=== PATIENT | male | born 1950 | race Caucasian/White ===

== ENCOUNTER 2023-06-11 10:28 | Inpatient (IN) | payer MEDICARE, MEDICAID, SELFPAY ==
[2023-06-11] VITALS (90 sets, daily range): BP systolic 89–143; BP diastolic 53–99; PULSE 81–156; RESP 13–39; TEMP 37–38.8; O2SAT 78–100
--- NOTE | 2023-06-11 11:47 | XRR_ITS ---
PROCEDURE INFORMATION: Exam: XR Chest Exam date and time: 06/11/2023 11:51 AM Age: 72 years old Clinical indication: Fever; Additional info: AMS, fever TECHNIQUE: Imaging protocol: Radiologic exam of the chest. Views: 1 view. COMPARISON: No relevant prior studies available. FINDINGS: Lungs: There is consolidation in the right upper lobe. There is subtle ill-defined opacity in the lateral left mid lung and lateral right lung base. Pleural spaces: There is no pleural effusion or pneumothorax. Heart/Mediastinum: There is mild enlargement of the cardiac silhouette. Bones/joints: Bones are unremarkable. XR/XR chest 1V portable [id number] IMPRESSION: 1. Right upper lobe consolidation consistent with pneumonia. 2. Subtle opacities in the lateral left mid lung and right lung base are nonspecific. These may represent additional sites of consolidation, atelectasis or artifact related overlying soft tissue.
--- NOTE | 2023-06-11 11:48 | ECG_ITS ---
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 Measurements Intervals [place] Rate: 149 P: 0 DE: 0 QRS: -66 QRSD: 94 T: 6 QT: 268 QTc: 423 Interpretive Statements ATRIAL FIBRILLATION WITH RAPID VENTRICULAR RESPONSE PATTERN CONSISTENT WITH PULMONARY DISEASE INCOMPLETE RIGHT BUNDLE BRANCH BLOCK [90+ ms QRS DURATION, TERMINAL R IN V1/V2, 40+ ms S IN I/aVL/V4/V5/V6] LEFT ANTERIOR FASCICULAR BLOCK [QRS AXIS <= -45, QR IN I, RS IN II] NONSPECIFIC ST & T-WAVE ABNORMALITY INTERPRETATION BASED ON A DEFAULT AGE OF 40 YEARS Compared to ECG 10/10/2017 11:43:09 T-wave abnormality now present Sinus tachycardia no longer present ST (T wave) deviation no longer present Electronically Signed On 06-11-2023 21:01:31 CDT by Hector Guillaume M.D. [email or web address] [facility] Technologiesmer[email or web address]isonWhite [facility].[employer]/store/[id number]
[2023-06-11] MEDS: dilTIAZem 5 mg/mL SDV 5 mL 10 MG IVP (12:04)
[2023-06-11 12:35] LABS: Basophils # 0.1 10^3/uL (0.0-0.1); Basophils % 0.4 %; Hematocrit 47.3 % (42.0-52.0); Hemoglobin 15.5 g/dL (11.7-16.6); Lymphocytes # 0.6 10^3/uL (0.8-4.8); Lymphocytes % 4.6 %; Mean Corpuscular HGB Conc 32.8 g/dL (30.0-36.0); Mean Corpuscular Hemoglobin 28.1 pg (28.0-34.0); Mean Corpuscular Volume 85.7 fl (80-94); Mean Platelet Volume 8.6 fL (7.4-10.4); Monocytes # 0.3 10^3/uL (0.2-0.9); Monocytes % 2.5 %; Neutrophils % 91.8 %; Nucleated Red Blood Cells % 0 %; Platelet Count 123 10^3/cmm (130-400); Red Blood Count 5.52 10^6/uL (4.1-5.3); Red Cell Distribution Width 15.2 % (12.1-15.1); White Blood Count 12.2 10^3/uL (4.0-10.0)
[2023-06-11] MEDS: dilTIAZem 100 MG in sodium chloride 0.9% (add-van) 100 ML IV (13:03)
[2023-06-11 13:04] LABS: Lactic Sepsis W/Reflex 3.3 mmol/L (0.5-2.2)
--- NOTE | 2023-06-11 13:07 | ED_ITS ---
HPI - General Adult General: Chief complaint: General Medical Stated complaint: Weakness and running fever Confusion Time Seen by Provider: 06/11/23 11:43 History of Present Illness: Patient presents to the ER with complaints of weakness intermittent fever confusion for the last 3 days. Patient presented to the ER he had a pulse of 142 bpm. Temperature 99.1. Patient does not go to the doctor very often and thinks the last time he was hospitalized was 15 years ago when he had pneumonia. Patient has been taking [id number] Tylenol multiple times a day for fever. Patient also says it hurts in his chest to take big deep breaths. Patient has fallen 3-4 times in the last 3 to 4 days. Patient has weakness and is unable to get up off the floor when he falls. Review of Systems General: Reports: 10 or more systems reviewed and unremarkable except in HPI and below Physical Exam Const: COMMON NORMALS: no acute distress, average body habitus, patient oriented x3, no limitations, healthy appearing, alert and well nourished HENMT: COMMON NORMALS: normocephalic, atraumatic, hearing grossly normal bilaterally, external ears normal, Normal external nose present and moist oral mucous membranes HEAD & SCALP: normocephalic and atraumatic NOSE: Normal external nose present EXTERNAL EAR: Yes external ears normal Eye: COMMON NORMALS: Equal, round and reactive pupils present, EOMs intact bilaterally, conjunctivae normal and no scleral icterus CONJUNCTIVA: Yes conjunctivae normal PUPIL: Yes Equal, round and reactive pupils present Neck/C-Spine: COMMON NORMALS: full ROM, no lymphadenopathy, supple, no meningeal signs, no JVD and Thyroid normal THYROID: Thyroid normal Chest: COMMONS NORMALS: normal inspection of the chest and normal palpation of entire chest wall Resp: COMMON NORMALS: normal respiratory effort, No retractions and No use of accessory muscles OTHER: Rhonchi diffuse worse left upper lobe. Cardio: COMMON NORMALS: no JVD, S1 normal heart sound present and S2 normal heart sound present; negative for regular rate (Tachycardia) and negative for regular rhythm (Irregularly irregular) RATE: abnormal rate (Tachycardia) RHYTHM: abnormal rhythm (Irregularly irregular) HEART SOUNDS: S1 normal heart sound present and S2 normal heart sound present GI: COMMON NORMALS: Normal to inspection, nondistended, normoactive bowel sounds present, Soft to palpation, non-tender, No hepatosplenomegaly present and no masses PALPATION: Yes Soft to palpation and Yes No hepatosplenomegaly present : COMMON NORMALS: Yes no CVA tenderness BLADDER/KIDNEY EXAM: Yes no CVA tenderness Back/Pelvis: COMMON NORMALS: no CVA tenderness Neuro: COMMON NORMALS: patient oriented x3 SENSORIUM/ORIENTATION: Yes alert MENINGEAL SIGNS: Yes no meningeal signs Course Vital Signs: Vital signs: Vital Signs Temperature 102 F H 06/11/23 14:45 Pulse Rate 147 H 06/11/23 14:45 Respiratory Rate 20 H 06/11/23 14:45 Blood Pressure 143/99 06/11/23 14:45 Pulse Oximetry 96 06/11/23 14:45 Oxygen Delivery Me thod Room Air 06/11/23 14:45 MDM - General Adult Medical Decision Making Patient presented to the ER with complaints of worsening shortness of breath heart racing and weakness. Upon arrival patient's heart rate was 142 beats a minute in A-fib with RVR type pattern. Patient was given 10 mg of Cardizem started on a Cardizem drip his heart rate decreased to 121 bpm. Still in A-fib pattern. Chest x-ray showed right upper lobe consolidation consistent with pneumonia. Lab work revealed elevated BUN/creatinine of 29 and 1.9, elevated troponin at 47, elevated procalcitonin 6.45, lactic acid 3.3, white blood cells of 12.2 patient was dosed with 1 g of Rocephin, 2 L of normal saline, Dr. Reina rao was consulted and agreed to inpatient treatment in the ICU. Differential Diagnosis CHF, pneumonia, A-fib with RVR Medical Records I reviewed the patient's medical records. Lab Data I reviewed the patient's lab results. 06/11/23 11:56 06/11/23 11:56 Radiology Impressions Chest X-Ray 06/11/23 11:47 IMPRESSION: 1. Right upper lobe consolidation consistent with pneumonia. 2. Subtle opacities in the lateral left mid lung and right lung base are nonspecific. These may represent additional sites of consolidation, atelectasis or artifact related overlying soft tissue. ADDENDUM: 06/11/23 [id number] THIS REPORT CONTAINS FINDINGS THAT MAY BE CRITICAL TO PATIENT CARE. The findings were verbally communicated via telephone conference with Tayo Verma at 12:52 PM CDT on 06/11/2023. The findings were acknowledged and understood. Laboratory Results WBC 12.2 10^3/uL (4.0-10.0) H 06/11/23 11:56 RBC 5.52 10^6/uL (4.1-5.3) H 06/11/23 11:56 Hgb 15.5 g/dL (11.7-16.6) 06/11/23 11:56 Hct 47.3 % (42.0-52.0) 06/11/23 11:56 MCV 85.7 fl (80-94) 06/11/23 11:56 MCH 28.1 pg (28.0-34.0) 06/11/23 11:56 MCHC 32.8 g/dL (30.0-36.0) 06/11/23 11:56 RDW 15.2 % (12.1-15.1) H 06/11/23 11:56 Plt Count 123 10^3/cmm (130-400) L 06/11/23 11:56 MPV 8.6 fL (7.4-10.4) 06/11/23 11:56 Neut % (Auto) 91.8 % 06/11/23 11:56 Lymph % (Auto) 4.6 % 06/11/23 11:56 [place] % (Auto) 2.5 % 06/11/23 11:56 Eos % (Auto) 0.0 % 06/11/23 11:56 Baso % (Auto) 0.4 % 06/11/23 11:56 Neut # (Auto) 11.20 10^3/uL (1.8-7.7) H 06/11/23 11:56 Lymph # (Auto) 0.6 10^3/uL (0.8-4.8) L 06/11/23 11:56 [place] # (Auto) 0.3 10^3/uL (0.2-0.9) 06/11/23 11:56 Eos # (Auto) 0.0 10^3/uL (0.0-0.8) 06/11/23 11:56 Baso # (Auto) 0.1 10^3/uL (0.0-0.1) 06/11/23 11:56 Nucleated RBC % (auto) 0 % 06/11/23 11:56 Nucleated RBCs # 0.0 /100WBC 06/11/23 11:56 Sodium 130 mmol/L (136-145) L 06/11/23 11:56 Potassium 4.8 mmol/L (3.5-5.1) 06/11/23 11:56 Chloride 92 mmol/L (98-107) L 06/11/23 11:56 Carbon Dioxide 19 mmol/L (22-29) L 06/11/23 11:56 Anion Gap 23.8 (5-19) H 06/11/23 11:56 BUN 29 mg/dL (8-23) H 06/11/23 11:56 Creatinine 1.9 mg/dL (0.7-1.2) H 06/11/23 11:56 GFR Calculation Not Reportable 06/11/23 11:56 Glucose 158 mg/dL (65-115) H 06/11/23 11:56 Calculated Osmolality 279 mOsm/kg (285-295) L 06/11/23 11:56 Lactic Acid 3.3 mmol/L (0.5-2.2) H 06/11/23 11:56 Lactic Acid (Sepsis) 3.8 mmol/L (0.5-2.2) H 06/11/23 14:20 Calcium 9.0 mg/dL (8.5-10.5) 06/11/23 11:56 Magnesium 2.2 mg/dL (1.7-2.3) 06/11/23 11:56 Total Bilirubin 0.7 mg/dL (0.15-1.2) 06/11/23 11:56 AST 36 U/L (0-40) 06/11/23 11:56 ALT 21 U/L (0-41) 06/11/23 11:56 Alkaline Phosphatase 73 U/L (40-130) 06/11/23 11:56 Troponin T Baseline 47 ng/L (0-15) H 06/11/23 11:56 Troponin T 120 Minute 50.08 ng/L (0-15) H 06/11/23 14:07 Delta Troponin T 3.08 ABS# (0-10) 06/11/23 14:07 Total Protein 8.0 g/dL (6.6-8.7) 06/11/23 11:56 Albumin 3.8 g/dL (3.5-5.2) 06/11/23 11:56 Globulin 4.2 g/dL (1.3-4.6) 06/11/23 11:56 Procalcitonin 6.45 ng/mL (0-0.5) H 06/11/23 11:56 Urine Color Yellow (Yellow) 06/11/23 14:17 Urine Appearance Sl hazy (CLEAR) A 06/11/23 14:17 Urine pH 5 (5-7) 06/11/23 14:17 Ur Specific [place] 1.020 (1.005-1.030) 06/11/23 14:17 Urine Protein 2+ (Negative) H 06/11/23 14:17 Urine Glucose (UA) Norm (Normal) 06/11/23 14:17 Urine Ketones 1+ (Negative) H 06/11/23 14:17 Urine Blood 3+ (Negative) H 06/11/23 14:17 Urine Nitrate Negative (Negative) 06/11/23 14:17 Urine Bilirubin Neg (Negative) 06/11/23 14:17 Urine Urobilinogen Norm mg/dL (Negative) 06/11/23 14:17 Ur Leukocyte Esterase Negative (Negative) 06/11/23 14:17 Urine RBC 0-4 /hpf (0-2) H 06/11/23 14:17 Urine WBC 5-10 /hpf (0-5) H 06/11/23 14:17 Ur Squamous Epith Cells None /hpf (0-5) 06/11/23 14:17 Amorphous Sediment 1+ /hpf 06/11/23 14:17 Urine Bacteria 1+ /hpf (NONE) H 06/11/23 14:17 Coarse Granular Casts 15-25 /lpf H 06/11/23 14:17 EKG Data EKG 1: I personally reviewed and interpreted this EKG as follows: EKG interpretation date: 06/11/23 EKG interpretation time: 13:37 Prior EKG tracings: not available for review Interpretation: EKG showed a ventricular rate of 127 bpm, QRS of 87, QTc 02/27/1947, A-fib with RVR, left anterior fascicular block, moderate ST depression Computer generated interpretation: Chest X-Ray 06/11/23 11:47 IMPRESSION: 1. Right upper lobe consolidation consistent with pneumonia. 2. Subtle opacities in the lateral left mid lung and right lung base are nonspecific. These may represent additional sites of consolidation, atelectasis or artifact related overlying soft tissue. ADDENDUM: 06/11/23 4375 THIS REPORT CONTAINS FINDINGS THAT MAY BE CRITICAL TO PATIENT CARE. The findings were verbally communicated via telephone conference with Tayo Verma at 12:52 PM CDT on 06/11/2023. The findings were acknowledged and understood. EKG 2: I personally reviewed and interpreted this EKG as follows: EKG interpretation date: 06/11/23 EKG interpretation time: 14:00 Prior EKG tracings: available for review Interpretation: EKG showed ventricular rate of 123 bpm, QRS 99, QTc 362, A-fib with RVR, incomplete right bundle branch block, left anterior fascicular block, Computer generated interpretation: Chest X-Ray 06/11/23 11:47 IMPRESSION: 1. Right upper lobe consolidation consistent with pneumonia. 2. Subtle opacities in the lateral left mid lung and right lung base are nonspecific. These may represent additional sites of consolidation, atelectasis or artifact related overlying soft tissue. ADDENDUM: 06/11/23 1029 THIS REPORT CONTAINS FINDINGS THAT MAY BE CRITICAL TO PATIENT CARE. The findings were verbally communicated via telephone conference with Tayo Verma at 12:52 PM CDT on 06/11/2023. The findings were acknowledged and understood. Discharge Plan Discharge Patient Disposition: Admitted As Inpatient Clinical Impression: Acute kidney injury, Elevated lactic acid level, Elevated procalcitonin, Atrial fibrillation with rapid ventricular response Right upper lobe pneumonia Qualifiers: Pneumonia type: due to unspecified organism Qualified Code(s): J18.9 - Pneumonia, unspecified organism Condition: Stable Coding Level of Care Code ED Residential Monitor for Marina Roberts
[2023-06-11 13:12] LABS: Alanine Aminotransferase 21 U/L (0-41); Albumin Level 3.8 g/dL (3.5-5.2); Alkaline Phosphatase 73 U/L (40-130); Anion Gap 23.8 (5-19); Aspartate Amino Transferase 36 U/L (0-40); Blood Urea Nitrogen 29 mg/dL (8-23); Carbon Dioxide 19 mmol/L (22-29); Chloride 92 mmol/L (98-107); Globulin 4.2 g/dL (1.3-4.6); Glucose 158 mg/dL (65-115); Magnesium 2.2 mg/dL (1.7-2.3); Osmolality Calculated 279 mOsm/kg (285-295); Potassium 4.8 mmol/L (3.5-5.1); Sodium 130 mmol/L (136-145); Total Bilirubin 0.7 mg/dL (0.15-1.2)
[2023-06-11 13:13] LABS: Troponin(5th) Baseline 47 ng/L (0-15)
[2023-06-11 13:18] LABS: Procalcitonin 6.45 ng/mL (0-0.5)
[2023-06-11] MEDS: cefTRIAXone 1,000 MG in sodium chloride 0.9% (plus) 50 ML 100 MG IV (13:34)
[2023-06-11] MEDS: sodium chloride 0.9% 1,000 ML 999 ML IV (13:35)
--- NOTE | 2023-06-11 13:48 | ECG_ITS ---
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 Measurements Intervals [place] Rate: 123 P: 0 [place]: 0 QRS: -48 QRSD: 99 T: 78 QT: 289 QTc: 414 Interpretive Statements ATRIAL FIBRILLATION WITH RAPID VENTRICULAR RESPONSE INCOMPLETE RIGHT BUNDLE BRANCH BLOCK [90+ ms QRS DURATION, TERMINAL R IN V1/V2, 40+ ms S IN I/aVL/V4/V5/V6] LEFT ANTERIOR FASCICULAR BLOCK [QRS AXIS <= -45, QR IN I, RS IN II] POSSIBLE ANTERIOR MYOCARDIAL INFARCTION , PROBABLY OLD [30 ms Q WAVE IN V3/V4, OR R < 0.2 mV IN V4] Compared to ECG 06/11/2023 11:45:29 Myocardial infarct finding now present T-wave abnormality no longer present Electronically Signed On 06-12-2023 21:41:16 CDT by Hector Guillaume M.D. [id number] perlita
[2023-06-11 13:56] LABS: Reflex Lactate Order REFLEX LACTIC ORDERD
[2023-06-11 14:37] LABS: Protein Urine 2+ (Negative); Urine Appearance SL Hazy (CLEAR); Urine Color Yellow (Yellow); pH Urine 5 (5-7)
[2023-06-11 14:38] LABS: Add Urine Culture? No; Add Urine Microscopic? YES; Amorphous Sediment Urine 1+ /hpf; Bacteria Urine 1+ /hpf; Bilirubin Urine Neg (Negative); Blood Urine 3+ (Negative); Coarse Granular Casts Urine 15-25 /lpf; Glucose Urine UA Norm (Normal); Ketones Urine 1+ (Negative); Leukocyte Esterase Urine Negative (Negative); Nitrate Urine Negative (Negative); RBC Urine 0-4 /hpf (0-2); Urobilinogen Urine Norm (Negative)
[2023-06-11 14:39] LABS: Troponin 5 2HR 50.08 ng/L (0-15)
[2023-06-11 14:45] LABS: Lactic Acid level (Lactate) 3.8 mmol/L (0.5-2.2)
[2023-06-11 14:49] LABS: Troponin 5 2HR Delta 3.08 ABS# (0-10)
[2023-06-11] MEDS: acetaminophen 500 mg Tablet 1000 MG PO (15:00)
--- NOTE | 2023-06-11 15:13 | CTR_ITS ---
PROCEDURE INFORMATION: Exam: CT Head Without Contrast Exam date and time: 06/11/2023 3:33 PM Age: 72 years old Clinical indication: Altered mental status/memory loss; Additional info: AMS TECHNIQUE: Imaging protocol: Computed tomography of the head without contrast. Radiation optimization: All CT scans at this facility use at least one of these dose optimization techniques: automated exposure control; mA and/or kV adjustment per patient size (includes targeted exams where dose is matched to clinical indication); or iterative reconstruction. REPORTING DATA: Count of CT and Cardiac NM exams in prior 12 months: This patient has received 0 known CTs and 0 known cardiac nuclear medicine studies in the 12 months prior to the current study. COMPARISON: No relevant prior studies available. RADIATION DOSE METRICS: Total DLP (mGy-cm): 1159.04 FINDINGS: Brain: No intracranial hemorrhage. No mass effect, edema or midline shift. There are vague areas of decreased attenuation within the periventricular white matter likely secondary to chronic microvascular changes. Mild age related cerebral volume loss resulting in prominence of cortical sulci. Cerebral ventricles: Unremarkable for age and degree of cerebral volume loss. Paranasal sinuses: Mild mucosal thickening left maxillary sinus otherwise visualized sinuses are unremarkable. No fluid levels. Mastoid air cells: Visualized mastoid air cells are well aerated. Bones/joints: Asymmetric widening of the left jugular foramen med appears longstanding and may be vascular nature.. No acute fracture. Soft tissues: Unremarkable. CT/CT head wo con* [id number] IMPRESSION: 1. No acute intracranial abnormality. 2. Asymmetric widening left jugular foramen that appears longstanding and possibly vascular nature. Recommend follow-up nonemergent MRI of the brain with contrast confirmation.
--- NOTE | 2023-06-11 15:13 | CTR_ITS ---
PROCEDURE INFORMATION: Exam: CT Chest Without Contrast; Diagnostic Exam date and time: 06/11/2023 3:36 PM Age: 72 years old Clinical indication: Shortness of breath; Additional info: SOB TECHNIQUE: Imaging protocol: Diagnostic computed tomography of the chest without contrast. Radiation optimization: All CT scans at this facility use at least one of these dose optimization techniques: automated exposure control; mA and/or kV adjustment per patient size (includes targeted exams where dose is matched to clinical indication); or iterative reconstruction. REPORTING DATA: Count of CT and Cardiac NM exams in prior 12 months: This patient has received 0 known CTs and 0 known cardiac nuclear medicine studies in the 12 months prior to the current study. COMPARISON: CR (CHEST, ) 06/11/2023 11:51 AM RADIATION DOSE METRICS: Total DLP (mGy-cm): 494.38 FINDINGS: Lungs: There is an infiltrate present in the posterior right upper lobe. There is also minimal peripheral interstitial opacities in the lungs bilaterally greatest in the bases. Mild paraseptal emphysema. Left lower lobe calcified granuloma. Pleural spaces: Unremarkable. No pneumothorax. No pleural effusion. Heart: Trace pericardial fluid. Coronary arteries: Moderate coronary artery atherosclerosis. Lymph nodes: Enlarged right paratracheal node measuring 2.4 cm short axis may be reactive. There also calcified mediastinal and left hilar nodes consistent with old granulomatous disease. Vasculature: Atherosclerotic changes of the vasculature with incompletely imaged ectasia of the abdominal aorta. Diaphragm: Small-sized hiatal hernia. Bones/joints: T5 and T6 mild superior endplate compression deformity is age indeterminate and may be chronic. Soft tissues: Unremarkable. CT/CT chest [facility] [id number] IMPRESSION: 1. Posterior right upper lobe infiltrates suspicious for pneumonia. There are also subpleural interstitial opacities greatest in the lung bases bilaterally which may be chronic. Correlate with history and pulmonary function testing and recommend follow up after treatment. 2. Mediastinal adenopathy may be reactive in this context. Correlate clinically. COMMENTS: In the absence of a history or active diagnosis of lung cancer, it is recommended that this patient with emphysema be evaluated for enrollment in a low dose CT lung cancer screening program.
[2023-06-11 15:17] LABS: ABG PCO2 23.3 mmHg (35-45); ABG PH Result 7.44 (7.35-7.45); Arterial Blood Gas Hematocrit 43.7 % (42-52); Base Excess ABG -6.2 mmol/L (-2.0-2.0); Blood Gas Allen Test Pos; Blood Gas Operator Identificat MONRO; Blood Gas Sample Site Radial, left; Blood Gas Sample Type Arterial; HCO3 ABG 15.8 mmol/L (22-26); Oxygen Device ROOM AIR; PO2 ABG 69.7 mmHg (80.0-100.0)
--- NOTE | 2023-06-11 15:19 | PM.HP ---
Providers/Chief Complaint Admitting Physician: Willy Loredo MD Chief Complaint: Weakness and running fever Confusion History of Present Illness Alfred Pradhan is a 72 year old male with a past medical history of smoking, no diagnosis of lung disease, no history of CAD no history of strokes, no history of diabetes, no history of kidney disease, no reported significant past medical history, no past surgical history, he tells me for the last 96 hours, he has been sick, fevers, chills, fatigue, malaise, shortness of breath, he does report smoking he smokes about 6 cigarettes a day, does report decreased appetite, does report lightheadedness, does report dizziness, no chest pain, no palpitations does report a productive cough, no hemoptysis, no abdominal pain, no diarrhea, no sick contacts he has not received his COVID vaccinations, he tells me he has not seen a doctor in a long time, he has not ever had a stitch on him, he tells me for the last few days he continues to have fevers, his tells me that several times she has found him on the floor so weak that he cannot get up off the floor, due to weakness and high-grade fevers, denies any neck pain, no neck stiffness, no headache, blurry vision, no paresthesias he lives with his , 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, during my history taking patient would often become confused, would often look to his for answers Review of Systems Const: Reports: fever(s), chills, body aches, change in appetite, change in weight, fatigue, malaise and night sweats Eyes: Denies: change in vision ENMT: Denies: throat pain Card: Reports: palpitations, irregular heart rhythm, lightheadedness, dyspnea on exertion and orthopnea; Denies: chest pain or syncope Resp: Reports: dyspnea and productive cough GI: Denies: abdominal pain, nausea, vomiting, diarrhea, hematochezia or melena : Denies: flank pain, difficulty urinating, dysuria, urinary frequency or urinary urgency Musc: Denies: neck pain or back pain Skin/Breast: Denies: rash or pruritus Neuro: Reports: weakness in extremities, dizziness and confusion; Denies: headache(s), numbness in extremities, sensory changes, Slurred speech present or difficulty communicating thoughts Psych: Denies: anxiety Endo: Denies: polyuria or polydipsia Angelo/Lymph: Reports: enlarged lymph nodes; Denies: easy bruising Medications/Allergies Home Medications Medication Instructions Recorded Confirmed Last Taken Type acetaminophen 650 mg 650 mg PO Q12H PRN pain/fever 06/11/23 06/11/23 06/11/23 08:00 History tablet,extended release (Tylenol Arthritis Pain) Allergies Allergy/AdvReac Type Severity Reaction Status Date / Time No Known Allergies Allergy Verified 06/11/23 11:49 PFSH Acute PFSH: Medical History (Updated 06/11/23 @ 15:44 by Willy Loredo MD) No pertinent past medical history Surgical History (Updated 06/11/23 @ 15:28 by Willy Loredo MD) No pertinent past surgical history Family History (Updated 06/11/23 @ 15:28 by Willy Loredo MD) Mother CAD (coronary artery disease) Father Colon cancer Social History (Updated 06/11/23 @ 15:29 by Willy Loredo MD) Smoking and tobacco status: current every day smoker Alcohol intake: never Substance/Drug Use: never Vitals/I&O/Wt Last Vital Signs Temp 102 F H 06/11/23 14:45 Pulse 147 H 06/11/23 14:45 Resp 20 H 06/11/23 14:45 BP 143/99 06/11/23 14:45 Pulse Ox 96 06/11/23 14:45 O2 Del Method Room Air 06/11/23 14:45 06/11/23 06/11/23 06/11/23 06:59 14:59 22:59 Intake Total 66.167 / 66.167 Balance 66.167 / 66.167 Weight last 48 hrs Weight 80.739 kg Physical Exam Const: COMMON NORMALS: no acute distress GENERAL APPEARANCE: cooperative, well kempt and well developed ORIENTATION/CONSCIOUSNESS: Yes awake, Yes oriented to person, Yes oriented to place and Yes confused; not oriented to time HENMT: COMMON NORMALS: normocephalic, Normal external nose present and oropharynx normal HEAD & SCALP: normocephalic FACE & SINUS: normal facial exam NOSE: Normal external nose present Eye: COMMON NORMALS: Equal, round and reactive pupils present, EOMs intact bilaterally, conjunctivae normal and no scleral icterus CONJUNCTIVA: Yes conjunctivae normal PUPIL: Yes Equal, round and reactive pupils present Neck/C-Spine: COMMON NORMALS: full ROM, no meningeal signs, no JVD, Thyroid normal and No carotid bruits THYROID: Thyroid normal Lymph: LYMPHATIC: no lymphadenopathy noted Chest: COMMONS NORMALS: normal inspection of the chest Resp: COMMON NORMALS: normal respiratory effort, No retractions and No use of accessory muscles AUSCULTATION: crackles and wheezes Cardio: COMMON NORMALS: no JVD, S1 normal heart sound present, S2 normal heart sound present and No murmurs present (Cardio) RATE: tachycardic RHYTHM: abnormal rhythm irregularly irregular HEART SOUNDS: S1 normal heart sound present and S2 normal heart sound present PERIPHERAL PULSES: Peripheral pulses 2+ throughout GI: COMMON NORMALS: Normal to inspection, nondistended, normoactive bowel sounds present, Soft to palpation and non-tender PALPATION: Yes No hepatosplenomegaly present : BLADDER/KIDNEY EXAM: Yes no CVA tenderness Back/Pelvis: COMMON NORMALS: no CVA tenderness Neuro: COMMON NORMALS: patient oriented x3, CN's II-XII intact bilaterally, moves all extremities, no focal motor deficits and no sensory deficits noted MENINGEAL SIGNS: Yes no meningeal signs Psych: COMMON NORMALS: mental status grossly normal, Normal thought process present, cooperative and speech normal APPEARANCE: Yes well kempt SPEECH: Yes normal speech THOUGHT PROCESS: Normal thought process present Skin: COMMON NORMALS: turgor normal and no jaundice GENERAL SKIN EXAM: turgor normal Sepsis: Is patient septic: Yes Focused sepsis exam performed: Yes Focused sepsis exam: - DP PT pulses bilateral lower extremities diminished -Capillary refill greater than 3 seconds -Mottling up to the level of bilateral knees Date exam was performed: 06/11/23 Time exam was performed: 15:33 Data 06/11/23 11:56 06/11/23 11:56 Micro: Microbiology 06/11/23 12:16 Blood Culture - Preliminary Blood SPECIMEN COLLECTED 06/11/23 12:16 Blood Culture - Preliminary Blood SPECIMEN COLLECTED A&P Assessment and plan (1) Sepsis: (2) Right upper lobe pneumonia: Qualifiers: Pneumonia type: due to unspecified organism Qualified Code(s): J18.9 - Pneumonia, unspecified organism (3) Acute kidney injury: (4) Elevated lactic acid level: (5) Atrial fibrillation with rapid ventricular response: (6) Elevated procalcitonin: (7) Hypoxia: (8) Acute encephalopathy: (9) Hyponatremia: (10) Metabolic acidosis: (11) NSTEMI (non-ST elevated myocardial infarction): (12) Goals of care, counseling/discussion: (13) Encounter for smoking cessation counseling: Plan Sepsis secondary to pneumonia -Sepsis criteria met, with febrile state, A-fib, with probable prior history of A-fib, leukocytosis, elevated lactic acid, elevated CRP, elevated creatinine, source of infection right upper lobe pneumonia, encephalopathy Right upper lobe pneumonia -Monitor respiratory status closely -Oxygen therapy -We will order ABG -We will order CT of the chest -Order D-dimer, DIC panel -CRP -Follow blood cultures, sputum cultures, respiratory viral panel -Brought antibiotic coverage, vancomycin, Zosyn -Clear liquid diet, speech therapy eval, aspiration precautions -Does have a history of smoking, no diagnosis of COPD, Decadron Acute encephalopathy -Likely secondary to right upper lobe pneumonia, sepsis -CT of the head A-fib with RVR -Currently on Cardizem drip, will give 5 mg IV push metoprolol his heart rates in the 140s -Corey Vasc score is 1 NSTEMI, likely type II -Likely associate with right upper lobe pneumonia, hypoxia, sepsis -However cannot rule out underlying cardiac etiology -Aspirin, statin -Cardiac echo Acute kidney injury -Likely secondary to sepsis, right upper lobe pneumonia -IV fluids Lactic acidosis, secondary to sepsis as above Metabolic acidosis secondary to sepsis as above Hyponatremia likely sec to dehydration, sepsis, monitor Goals of care discussion patient is a full code Protonix for GI prophylaxis Smoking cessation counseling Attestations Medical Necessity Statement*: Patient requires hospitalization, inpatient, greater than 2 midnights, for sepsis, right upper lobe pneumonia, hypoxia, A-fib with RVR, MARILYN, NSTEMI, acute encephalopathy, metabolic acidosis Coding Level of Care Code Critical Care >/= 30 minutes Critical care time (in minutes): 60 The high probability of a clinically significant, sudden or life threatening deterioration, as referenced in this documentation, required my full and direct attention, intervention and personal management. The critical care time shown is in addition to time spent performing any reported separately billable procedures and includes the following: [x] Data and vital sign review and interpretation [x] Patient assessment, examination and intervention [x] Medication orders and management [x] Patient/Family updates as able [x] Care Coordination and Documentation. Diagnoses Sepsis A41.9 Right upper lobe pneumonia J18.9 Pneumonia type: due to unspecified organism Acute kidney injury N17.9 Elevated lactic acid level R79.89 Atrial fibrillation with rapid ventricular response I48.91 Elevated procalcitonin R79.89 Hypoxia R09.02 Acute encephalopathy G93.40 Hyponatremia E87.1 Metabolic acidosis E87.20 NSTEMI (non-ST elevated myocardial infarction) I21.4 Goals of care, counseling/discussion Z71.89 Encounter for smoking cessation counseling Z71.6
--- NOTE | 2023-06-11 15:53 | USCV_ITS ---
Alfred Pradhan Age: 72 Gender: M : 1950 Exam Date: 06/11/2023 18:39 Ordering Phys: Willy Lroedo MD Technologist: KOFI [place]am [place] [facility] [place]: sob BP: / HR: 89 Rhythm: Sinus Technical Quality: Adequate MEASUREMENTS (Male / Female) Normal Values 2D ECHO LV Diastolic Diameter PLAX 4.3 cm 4.2 - 5.9 / 3.9 - 5.3 cm LV Systolic Diameter PLAX 2.4 cm IVS Diastolic Thickness 0.5 cm 0.6 - 1.0 / 0.6 - 0.9 cm IVS Systolic Thickness 0.9 cm LVPW Diastolic Thickness 0.5 cm 0.6 - 1.0 / 0.6 - 0.9 cm LVPW Systolic Thickness 0.9 cm LVOT Diameter 1.9 cm LV Ejection Fraction 2D Teich 76.6 % LV Ejection Fraction MOD 2C 43.2 % LV Ejection Fraction 2C AL 42.3 % LA Diameter 3.5 cm IVC Diameter 2.3 cm M-MODE Aortic Annulus Diameter 3.2 cm LA Ao Ratio MM 1.3 DOPPLER AV Peak Velocity 161.0 cm/s LVOT Peak Velocity 115.0 cm/s AV Area Cont Eq vti 2.5 cm squared AV Area Cont Eq pk 2.0 cm squared MV Area PHT 4.1 cm squared MV E' Velocity 99.0 cm/s TR Peak Velocity 234.0 cm/s TR Peak Gradient 21.9 mmHg TV Peak E Velocity 88.0 cm/s Right Atrial Pressure 6.0 mmHg Pulmonary Artery Systolic Pressu 27.9 mmHg PV Peak Velocity 105.0 cm/s FINDINGS Left Ventricle Normal left ventricular size and systolic function, EF 55 % (visual). No regional wall motion abnormalities. Right Ventricle The right ventricle is normal in size and function. Right Atrium The right atrium is normal in size. Left Atrium The left atrium is normal in size. Mitral Valve No gross abnormalities noted Aortic Valve Thickened aortic valve. Tricuspid Valve Trace tricuspid valve regurgitation. Estimated pulmonary artery peak systolic pressure 28 mmHg Pulmonic Valve Pulmonic valve not well visualized. Pericardium Normal pericardium without effusion. Aorta Normal ascending aorta dimension. IVC Dilated IVC with normal respiratory variation. CONCLUSIONS Normal left ventricular size and systolic function, EF 55 % (visual). No regional wall motion abnormalities. Thickened aortic valve. Trace tricuspid valve regurgitation. Estimated pulmonary artery peak systolic pressure 28 mmHg. Dilated IVC with normal respiratory variation. There is no pericardial effusion. There are no intracardiac masses. No similar previous studies are available for comparison Dr Hector Guillaume MD [facility] (Electronically Signed) Final Date: 11 June 2023 20:54 S
[2023-06-11] MEDS: ipratropium-albuterol 3 mL Neb INHALATION ×2 (16:08→19:59)
[2023-06-11] MEDS: sodium chloride 0.9% 1,000 ML 50 ML IV (16:18)
[2023-06-11] MEDS: dexamethasone 10 mg/mL INJ 6 MG IVP (16:28)
[2023-06-11] MEDS: pantoprazole 40 mg SDV IVP (16:33)
[2023-06-11] MEDS: aspirin 81 mg EC Tablet PO (16:35)
[2023-06-11] MEDS: enoxaparin 40 mg/0.4 mL Syringe SUBCUT (16:35)
[2023-06-11] MEDS: vancomycin 1,000 MG in sodium chloride 0.9% 250 ML 250 MG IV (16:38)
[2023-06-11 16:42] LABS: INR 1.06 (0.8-1.2); Partial Thromboplastin Time 34.1 SECONDS (23.9-36.7)
[2023-06-11 16:44] LABS: Fibrinogen 681 mg/dL (174-498)
[2023-06-11 16:46] LABS: C Reactive Protein 294.8 mg/L (0.0-4.9); Chol HDL Ratio 4.39 mg/dL (1.0-5.00); Cholesterol 167 mg/dL (0-200); HDL Cholesterol 38 mg/dL (60-100); LDL Cholesterol Calculated 99 mg/dL (50-129); LDL HDL Ratio 2.61 RATIO (0.00-3.22); NT Pro B Type Natriuretic Pept 8094 pg/mL (0-125); Thyroid Stimulating Hormone 1.71 uIU/mL (0.27-4.20); Triglycerides 152 mg/dL (0-150)
[2023-06-11 16:53] LABS: D Dimer 8.29 ug/mIFEU (0-0.59)
[2023-06-11 17:00] LABS: Creatine Phosphokinase 652 U/L (39-308)
[2023-06-11] MEDS: piperacillin-tazobactam 3.375 GM in sodium chloride 0.9% (plus) 50 ML IV (17:48)
--- NOTE | 2023-06-11 17:56 | ECG_ITS ---
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 Measurements Intervals Sutton Rate: 96 P: 0 DE: 0 QRS: -61 QRSD: 96 T: -13 QT: 349 QTc: 442 Interpretive Statements ATRIAL FIBRILLATION PATTERN CONSISTENT WITH PULMONARY DISEASE INCOMPLETE RIGHT BUNDLE BRANCH BLOCK [90+ ms QRS DURATION, TERMINAL R IN V1/V2, 40+ ms S IN I/aVL/V4/V5/V6] LEFT ANTERIOR FASCICULAR BLOCK [QRS AXIS <= -45, QR IN I, RS IN II] Compared to ECG 06/11/2023 14:00:57 Myocardial infarct finding no longer present Electronically Signed On 06-12-2023 21:41:47 CDT by Hector Guillaume M.D. [id number]
[2023-06-11 18:20] LABS: Adenovirus Not Detected (NOT DETECT); Chlamydia Pneumoniae Not Detected (NOT DETECT); Coronavirus 229E,HKU1,NL63,OC4 Not Detected (NOT DETECT); Human Metapneumovirus Not Detected (NOT DETECT); Human Rhinovirus/Enterovirus Not Detected (NOT DETECT); Influenza A Not Detected (NOT DETECT); Influenza A H1 Not Detected (NOT DETECT); Influenza A H1-2009 Not Detected (NOT DETECT); Influenza A H3 Not Detected (NOT DETECT); Influenza B Not Detected (NOT DETECT); Mycoplasma Pneumoniae Not Detected (NOT DETECT); Parainfluenza Virus Type 1 Not Detected (NOT DETECT); Parainfluenza Virus Type 2 Not Detected (NOT DETECT); Parainfluenza Virus Type 3 Not Detected (NOT DETECT); Parainfluenza Virus Type 4 Not Detected (NOT DETECT); Respiratory Syncytial Virus A Not Detected (NOT DETECT); Respiratory Syncytial Virus B Not Detected (NOT DETECT); SARS-COV-2 Not Detected (NOT DETECT)
--- NOTE | 2023-06-11 18:22 | USR_ITS ---
PROCEDURE INFORMATION: Exam: US Duplex Lower Extremity Veins, Bilateral Exam date and time: 06/11/2023 7:23 PM Age: 72 years old Clinical indication: Swelling (edema) of limb; Lower extremity, bilateral; Additional info: Dvt TECHNIQUE: Imaging protocol: Real-time duplex ultrasound of the bilateral extremities with 2-D lincoln scale, color Doppler flow and spectral waveform analysis including responses to compression and other maneuvers (when performed) with image documentation. Complete exam focused on the lower extremity veins. COMPARISON: No relevant prior studies available. FINDINGS: Right deep veins: Unremarkable. The common femoral, femoral, proximal profunda femoral and popliteal veins are patent without thrombus. Normal Doppler waveforms. Normal compressibility and/or augmentation response. Right superficial veins: Saphenofemoral junction is patent without thrombus. Left deep veins: Unremarkable. The common femoral, femoral, proximal profunda femoral and popliteal veins are patent without thrombus. Normal Doppler waveforms. Normal compressibility and/or augmentation response. Left superficial veins: Saphenofemoral junction is patent without thrombus. Soft tissues: Unremarkable. US/CV venous duplex [facility] [id number] IMPRESSION: No evidence of deep vein thrombosis.
[2023-06-11 18:33] LABS: Troponin 5 6HR 52.71 ng/L (0-15)
[2023-06-11 18:39] LABS: Troponin 5 6HR Delta 5.71 ng/L (0-12)
--- NOTE | 2023-06-11 19:14 | PC.NURSE ---
Received patient from ER staff at 1610. HR: 143/AFIB. BP: 118/76, RR: 22, SPO2: 96%. Patient is alert and oriented to perosn, place, time, and situation. Has a cardizem drip running at 15.
--- NOTE | 2023-06-11 19:15 | PC.NURSE ---
One time dose of 5mg metoprolol IVP help due to a blood pressure of 89/59 and Heart rate becoming more controlled, 100-[address] dacosta,no new orders received.
--- NOTE | 2023-06-11 19:16 | PC.NURSE ---
SHift summary: uneventful shift. patient was only in ICU for about 2.5 hours before shift change. Near end of shift heart rate was coming down, nurse titrated cardizem down per protocol from 15 to 12.5, and alerted shiftman nurse to decreasing cardizem requirements.
[2023-06-11] MEDS: acetaminophen 325 mg Tablet 650 MG PO (19:48)
[2023-06-11] MEDS: atorvastatin 40 mg Tablet PO (20:18)
[2023-06-11] MEDS: dilTIAZem 100 MG in sodium chloride 0.9% (add-van) 100 ML 12.5 MG IV (20:18)
[2023-06-12] VITALS (118 sets, daily range): BP systolic 87–137; BP diastolic 52–82; PULSE 83–133; RESP 18–51; TEMP 36.8–39.6; O2SAT 81–99
[2023-06-12] MEDS: ALPRAZolam 0.5 mg Tablet PO (00:31)
[2023-06-12] MEDS: piperacillin-tazobactam 3.375 GM in sodium chloride 0.9% (plus) 50 ML IV ×2 (00:31→09:04)
[2023-06-12] MEDS: dilTIAZem 100 MG in sodium chloride 0.9% (add-van) 100 ML 12.5 MG IV ×2 (03:22→11:19)
[2023-06-12 03:45] LABS: Hematocrit 46.1 % (42.0-52.0); Hemoglobin 13.7 g/dL (11.7-16.6); Mean Corpuscular HGB Conc 29.7 g/dL (30.0-36.0); Mean Corpuscular Hemoglobin 27.5 pg (28.0-34.0); Mean Corpuscular Volume 92.6 fl (80-94); Mean Platelet Volume 8.6 fL (7.4-10.4); Platelet Count 105 10^3/cmm (130-400); Red Blood Count 4.98 10^6/uL (4.1-5.3); Red Cell Distribution Width 15.9 % (12.1-15.1); White Blood Count 8.9 10^3/uL (4.0-10.0)
[2023-06-12 04:06] LABS: Alanine Aminotransferase 25 U/L (0-41); Albumin Level 3.1 g/dL (3.5-5.2); Alkaline Phosphatase 54 U/L (40-130); Blood Urea Nitrogen 32 mg/dL (8-23); Calcium 7.9 mg/dL (8.5-10.5); Carbon Dioxide 14 mmol/L (22-29); Chloride 95 mmol/L (98-107); Globulin 3.7 g/dL (1.3-4.6); Glucose 144 mg/dL (65-115); Magnesium 2.2 mg/dL (1.7-2.3); Osmolality Calculated 271 mOsm/kg (285-295); Phosphorus 2.4 mg/dL (2.5-4.5); Sodium 126 mmol/L (136-145); Total Bilirubin 0.6 mg/dL (0.15-1.2); Total Protein 6.8 g/dL (6.6-8.7)
[2023-06-12 04:10] LABS: C Reactive Protein 281.4 mg/L (0.0-4.9)
[2023-06-12 04:11] LABS: Absolute Neutrophil 8.5 10^3/cmm (1.4-6.5); Absolute Segmented Neutrophil 8.2 10/cmm (1.6-7.1); Band Neutrophils Absolute 0.3 10^3/cmm (0.0-1.2); Eosinophils 0 %; Lymphocytes 4 %; Lymphocytes Absolute 0.4 10^3/cmm (1.2-3.4); Monocytes Absolute 0.1 10^3/cmm (0.1-0.6); Platelet Estimate Decreased (Normal); Segmented Neutrophils 92 %; Total Cells Counted 100 (0-100)
[2023-06-12 04:13] LABS: Estmated Average Glucose 123; Hemoglobin A1C 5.9 % (4.0-6.0)
[2023-06-12 04:14] LABS: Tear Drop Cells 1+; Toxic Vacuolation 1+
[2023-06-12 04:16] LABS: NT Pro B Type Natriuretic Pept 10487 pg/mL (0-125); Procalcitonin 8.44 ng/mL (0-0.5)
[2023-06-12 04:26] LABS: Anion Gap 21.4 (5-19); Potassium 4.4 mmol/L (3.5-5.1)
[2023-06-12 04:27] LABS: Aspartate Amino Transferase 43 U/L (0-40)
[2023-06-12 04:30] LABS: Creatine Phosphokinase 474 U/L (39-308)
[2023-06-12] MEDS: acetaminophen 325 mg Tablet 650 MG PO (04:56)
--- NOTE | 2023-06-12 05:02 | XR_ITS ---
WS: [id number] Exam: XR chest 1V portable [id number] Date/Time of Exam: 06/12/2023 5:22 AM Reason For Exam: worsening dyspnea Comparison 06/11/2023. Increasing consolidating infiltrate in the right upper lobe. Left lung remains clear. Cardiomediastin al silhouette is unremarkable for technique. No pleural effusions. The osseous thorax is intact. Janel toring leads superimpose the chest. XR/XR chest 1V portable [id number] IMPRESSION: 1. Increasing consolidating pneumonia in the right upper lobe. No other signifi cant change.
[2023-06-12] MEDS: FUROsemide 10 mg/mL SDV 2mL 20 MG IVP (05:20)
[2023-06-12] MEDS: ipratropium-albuterol 3 mL Neb INHALATION ×2 (07:46→13:18)
--- NOTE | 2023-06-12 08:19 | US_ITS ---
WS: [id number] Exam: US renal BI* [id number] Date/Time of Exam: 06/12/2023 8:35 AM Reason For Exam: kiel There is cortical scarring of the left kidney. The left kidney measures 10.36 x 5.34 x 5.9 cm. Cortic al thickness of the left kidney is 0.94 cm. The right kidney is unremarkable and measures 11.5 x 5.33 x 5.74 cm. Cortical thickness of the right kidney is 1.55 cm. No solid renal mass or renal obstructi on was demonstrated. Incidentally noted is aneurysmal dilatation of the infrarenal abdominal aorta me asuring almost 6 cm at maximal diameter. The aneurysm is partially obscured by bowel gas. US/US renal BI* [id number] IMPRESSION: 1. Cortical scarring of the left kidney. The right kidney is unremarkable. No r enal mass or obstruction. 2. Incidental finding of the aneurysmal dilatation of the infrarenal abdominal aorta that may measure as much as 6 cm at greatest diameter. The aneurysm is pa rtially obscured by bowel gas. Further workup with CT could be considered for more detailed evaluation. These results were discussed by phone with , the attending physician at approximately 10:10 AM 06/12/2023.
[2023-06-12] MEDS: azithromycin 500 MG in sodium chloride 0.9% 250 ML 250 MG IV (09:02)
[2023-06-12] MEDS: aspirin 81 mg EC Tablet PO (09:04)
--- NOTE | 2023-06-12 10:02 | P.CONIM_ITS ---
Providers/Reason For Consult Consulting Physician/Specialty*: [facility]/Nephrology Reason for Consult*: MARILYN Attending Physician: Willy Loredo MD History of Present Illness History of Present Illness Alfred Pradhan is a 72 year old male With past medical history of hypertension presented to the emergency department complaining of fevers chills fatigue malaise and shortness of breath. Patient also is a smoker. Chest x-ray showed possible pneumonia and lab data significant for low sodium of 146 creatinine 2.2 and has low bicarb of 14 today. Patient reports no prior history of CKD that he is aware of. Currently he is in ICU, unfortunately nasal cannula,. No pressors. Denies any other complaints. Review of Systems Narrative: Other review of systems negative Medications/Allergies Home Medications Medication Instructions Recorded Confirmed Last Taken Type acetaminophen 650 mg 650 mg PO Q12H PRN pain/fever 06/11/23 06/11/23 06/11/23 08:00 History tablet,extended release (Tylenol Arthritis Pain) Allergies Allergy/AdvReac Type Severity Reaction Status Date / Time No Known Allergies Allergy Verified 06/11/23 11:49 Current Medications Generic Name Dose Route Start Last Admin Trade Name Freq PRN Reason Stop Dose Admin Acetaminophen 650 mg 06/11/23 15:13 06/12/23 04:56 Acetaminophen 325 Mg Tablet PO 650 mg Q6H PRN Administration Mild/Mod Pain Or Temp >/= 101 Albuterol/Ipratropium 3 ml 06/11/23 16:00 06/12/23 07:46 Ipratropium-Albuterol 3 Ml Neb INHALATION 3 ml QID.RESPIRATORY DENITA Administration Aspirin 81 mg 06/11/23 15:53 06/12/23 09:04 Aspirin 81 Mg Ec Tablet PO 81 mg DAILY DENITA Administration Atorvastatin Calcium 40 mg 06/11/23 21:00 06/11/23 20:18 Atorvastatin 40 Mg Tablet PO 40 mg BEDTIME DENITA Administration Dexamethasone 6 mg 06/11/23 15:15 06/11/23 16:28 Dexamethasone 10 Mg/Ml Inj IVP 6 mg Q24H DENITA Administration Enoxaparin Sodium 40 mg 06/11/23 15:53 06/11/23 16:35 Enoxaparin 40 Mg/0.4 Ml Syringe SUBCUT 40 mg Q24H DENITA Administration Diltiazem HCl 100 mg/ Sodium 100 mls @ 0 mls/hr 06/11/23 12:30 06/12/23 03:22 Chloride IV 12.5 mg/hr .Q0M DENITA 12.5 mls/hr Administration Protocol Per Protocol Vancomycin HCl 1,000 mg/ 250 mls @ 250 mls/hr 06/11/23 16:00 06/12/23 05:56 Sodium Chloride IV Infused Q24H DENITA Infusion Protocol Piperacillin Sod/Tazobactam 50 mls @ 12.5 mls/hr 06/11/23 17:00 06/12/23 09:04 Sod 3.375 gm/ Sodium Chloride IV 12.5 mls/hr Q8H DENITA Administration Protocol Sodium Chloride 1,000 mls @ 50 mls/hr 06/11/23 15:15 06/12/23 05:56 Sodium Chloride 0.9% IV 0 mls/hr .Q20H DENITA Infusion Azithromycin 500 mg/ Sodium 250 mls @ 250 mls/hr 06/12/23 08:30 06/12/23 09:02 Chloride IV 250 mls/hr Q24H DENITA Administration Protocol Pantoprazole Sodium 40 mg 06/11/23 15:15 06/11/23 16:33 Pantoprazole 40 Mg Sdv IVP 40 mg Q24H DENITA Administration PFSH Acute PFSH: Medical History (Updated 06/11/23 @ 15:44 by Willy Loredo MD) No pertinent past medical history Surgical History (Updated 06/11/23 @ 15:28 by Willy Loredo MD) No pertinent past surgical history Family History (Updated 06/11/23 @ 15:28 by Willy Loredo MD) Mother CAD (coronary artery disease) Father Colon cancer Social History (Updated 06/11/23 @ 15:29 by Willy Loredo MD) Smoking and tobacco status: current every day smoker Alcohol intake: never Substance/Drug Use: never Vitals/I&O/Wt Last Vital Signs Temp 100.0 F H 06/12/23 07:21 Pulse 85 06/12/23 07:51 Resp 18 06/12/23 07:46 BP 114/72 06/12/23 04:30 Pulse Ox 93 06/12/23 07:46 O2 Del Method Nasal Cannula 06/12/23 07:46 O2 Flow Rate 3 06/12/23 07:46 0706/12/23 06/12/23 22:59 06:59 14:59 Intake Total 424 / 423.376 3881.000 / 2520.167 120 / 120 Output Total 250 / 250 600 / 850 Balance 174 / 814.701 7460.000 / 1670.167 120 / 120 Weight last 48 hrs Weight 80.739 kg Physical Exam Narrative: Patient confused, no acute distress HEENT S1-S2 regular rate per report No edema Data 06/12/23 03:00 06/12/23 03:00 Micro: Microbiology 06/11/23 19:10 Bacterial Antigens - Final Urine,Clean Catch 06/11/23 12:16 Blood Culture - Preliminary Blood SPECIMEN COLLECTED 06/11/23 12:16 Blood Culture - Preliminary Blood SPECIMEN COLLECTED A&P Assessment and plan (1) Acute kidney injury: Plan 1. Acute kidney injury: Labs notable, creatinine was 1.9 on presentation worsened to 2.2 currently associated with metabolic acidosis. Continue to monitor. Check renal ultrasound-pending results, check urine electrolytes. Avoid nephrotoxins and IV contrast studies. -No acute indication for dialysis, will repeat labs now 2. Metabolic acidosis: Secondary to lactic acidosis and MARILYN, will switch fluids to bicarbonate drip and also add Bicitra 3. Sepsis secondary to pneumonia: Management per primary team, dose antibiotics to GFR less than 15 4. Acute metabolic encephalopathy 5. A-fib with RVR, on Cardizem drip 6. NSTEMI Patient evaluated using audiovisual cart. Time spent 40 minutes Consult Attestations Medical Necessity Statement: per medicine Coding Level of Care Code Acute Code for [facility] Fwd Diagnoses Acute kidney injury N17.9
--- NOTE | 2023-06-12 10:09 | PC.CHAP ---
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 [] Patient/Family/Request visit [] Outpatient visit [] Follow-up visit [] Physician referral [] Code/Alert [x] Routine visit [] Staff referral [] Actively dying [] Patient sleeping [x] Family support [] [] Out of room [] Palliative care [] [x] Receiving care in room [] Pre-surgical visit [] Trauma [] Long length of stay [] ICU visit [] Other: Relational/Emotional Strength [] Patient feels connected with others/family/visitors/staff [] Distress [] Loneliness/isolation [] Abandonment Spirituality of Patient [] Person of Whit [] Attends Baptism of their Whit [] Believes in Prayer [] Reads Bible or Advent materials [] There are Spiritual issues to be addressed Utility Operator Interventions [x] Prayer [] Active listening [] Non-anxious presence [] Spiritual/emotional support [] Crisis/trauma care [] Spiritual counseling [] Bereavement support [] Provided bereavement packet [] Provided Bible/devotional materials [] Provided toy/stuffed animal, coloring book to patient or family member [] Provided Communion [] Anointing/[place] [] Salvation [x] Completed spiritual assessment [] Other: Impact on Illness or Injury [] Angry [] Fearful [] Anxious [] Often cries [] Exhaustion [] Unable to work [] Unable to attend advent [] Unable to walk/stand [] Unable to read [] Unable to drive [] Unable to eat/drink [] Unable to sleep [] Unable to be with family [] Patient intubated [] Other: Summary Time spent with patient
--- NOTE | 2023-06-12 10:21 | CT_ITS ---
WS: [id number] CT ABDOMEN PELVIS TECHNIQUE: Contrast-enhanced CT of the abdomen and pelvis with coronal and sagittal reformatted image s. CLINICAL INFORMATION: aaa COMPARISON: None. DLP: 1604.[address] scans at [facility] use at least one of these dose optimization techniques: automated e xposure control; mA and/or kV adjustment per patient size (includes targeted exams where dose is matc hed to clinical indication); or iterative reconstruction. FINDINGS: Large lobulated infrarenal abdominal aortic aneurysm as seen on a recent ultrasound. This measures ap proximately 7.2 x 9.2 x 8.8 cm AP by transverse by craniocaudal. Large amount of peripheral mural thr ombus with calcification. Focal outpouching along the anterior lateral aspect of the aneurysm measuri ng 3.9 x 3.1 CM. Approximately 50% narrowing of the upper abdominal aorta due to peripheral mural thrombus. Proximal c ommon iliac arteries are patent. Peripheral mural thrombus LEFT common iliac artery . Celiac and SMA are patent. Mild diffuse fatty infiltration liver. Normal gallbladder. Tiny esophageal hiatal hernia. Interstitial edema in the lung bases. Trace pleural fluid. Fatty atrophy of the pancr eas. Splenic artery calcification. Adrenal glands are normal. Normal renal parenchymal enhancement. A trophic LEFT kidney. No hydronephrosis. Lobato catheter. Mild rectosigmoid constipation. Luminal narrowing involving the proximal sigmoid colon may be due to spasm or stricture. This can be followed up with sigmoidoscopy. No evidence of high-grade obstruction . A few fluid-filled small bowel loops. Slight air-fluid levels in the transverse colon. No free flui d in the abdomen or pelvis. CT/CT abdomen pelvis w con* [id number] IMPRESSION: Some images degraded due to breathing artifact. 1. Lobulated aneurysmal infrarenal abdominal aortic aneurysm measuring 7.2 x 9 .2 x 8.8 cm AP by transverse by craniocaudal with peripheral mural thrombus. No evidence of acute rupture. 2. 50% narrowing of the upper abdominal aorta due to peripheral mural thrombus . 3. Celiac and SMA are patent. 4. Trace bilateral pleural fluid. 5. Smooth luminal narrowing in the proximal sigmoid colon may be due to spasm or stricture. This can be followed up with sigmoidoscopy. 6. No other acute findings. Notified Willy Loredo MD at 06/12/2023 10:55 AM.
[2023-06-12] MEDS: FUROsemide 10 mg/mL SDV 4mL 40 MG IVP (11:19)
[2023-06-12] MEDS: lanolin oint 7 gm 1 APPLIC TOPICAL (11:36)
[2023-06-12 11:51] LABS: Anion Gap 18.8 (5-19); Blood Urea Nitrogen 34 mg/dL (8-23); Calcium 7.2 mg/dL (8.5-10.5); Carbon Dioxide 16 mmol/L (22-29); Chloride 91 mmol/L (98-107); Glucose 155 mg/dL (65-115); Osmolality Calculated 265 mOsm/kg (285-295); Potassium 3.8 mmol/L (3.5-5.1); Sodium 122 mmol/L (136-145)
[2023-06-12] MEDS: iohexol 350 mg/mL 500 mL Btl (per mL) IV (11:59)
[2023-06-12] MEDS: acetaminophen 1,000 MG/100 ML PIGGYBACK 400 MG IV (12:04)
[2023-06-12 12:08] LABS: Erythrocyte Sedimentation Rate 72 mm/hr (0-10)
[2023-06-12] MEDS: sodium chloride 0.9% 1,000 ML 50 ML IV (12:40)
--- NOTE | 2023-06-12 13:25 | PM.PN ---
Subjective Subjective: - Patient was examined multiple times throughout the morning -Overnight she remained febrile -Remains normotensive not on pressors -Remains in A-fib on Cardizem going to 12.5 -On 3 L -Alert, awake, follows commands, but has episodes of encephalopathy -This morning he was examined with at bedside -Discussed his pneumonia, continues to be febrile, so far his blood cultures are negative, his CRP is 281, Pro-Jef is 8, given that he remains febrile, I am going to add on azithromycin, he does have evidence of rhabdomyolysis CPK is 474, I will add on IV fluids, he also has evidence of worsening kidney function, will consult nephrology, -He also has evidence of hyponatremia, serum sodium 126, will continue to monitor, every 4 hours, nephrology consulted potentially hypovolemic hyponatremia, receiving IV fluids -Discussed echocardiogram -He tells me that has been having abdominal pain for the last few months, but now this morning its significantly worsen, he is also having flank pain bilaterally and no lower back pain, feeling nauseous -On examination abdomen is soft, distended, diffusely tender, no guarding, no rebound, no rigidity -He has persistent mottling of bilateral lower extremities up to the level of bilateral knees, no significant mottling of abdomen -DP PT pulses bilateral lower extremities are palpable but diminished, dopplerable, capillary refill greater than 3 seconds, pale hue to bilateral lower extremity -His creatinine is 2.2 this morning lactic acid is 3, spoke to nephrology, consulted for worsening MARILYN -At this point there was concerns for worsening sepsis, however he remains on pressors, renal ultrasound was ordered -I had a call from Dr. Osborn that there was concerns for abdominal aortic aneurysm, -Immediately reexamined patient, continues to complain of abdominal pain, back pain, abdomen is nonpulsatile, he remains hemodynamically stable, remains on Cardizem -Remains febrile -Due to concerns for atypical infection azithromycin was added for antibiotic coverage -Creatinine is 2.2, but answers concerns for abdominal aortic aneurysm impending rupture, dissection, leak, possible mycotic aneurysm, discussed risk and benefits of CT angiogram with contrast with patient and , they voiced understanding, all questions answered, risk of dialysis, risk of renal failure, they voiced understanding of all questions answered, as this is a life-threatening situation I have recommended for a CT angiogram of the abdomen pelvis with contrast to be formed, he agreed to proceed -CT angiogram of the abdomen pelvis revealed a 7 x 8 x 9 cm abdominal aortic aneurysm I reviewed this with radiology, Dr. Barr, no evidence of dissection, or rupture, or leak -However I am still concerned for mycotic aneurysm, and asymptomatic, ESR is 72 -Spoke to Dr. Freed cardiothoracic surgery, given size, and patient's symptomatology, he recommended transfer for emergent vascular surgery evaluation -Spoke to [facility], spoke to vascular surgery, spoke to them about my concerns about asymptomatic abdominal aneurysm, size, his ESR 72 my concern is for impending rupture possible mycotic aneurysm -Spoke to vascular surgery, patient has been accepted at [facility] -I spoke to patient, his , his brother at bedside -Discussed life-threatening nature of these diagnoses, and the urgency for transfer for vascular surgery eval, they are agreeable -I discussed the risks of transfer, morbidity and mortality discussed about transfer, risk of in transfer, him and his voiced understanding, voiced understanding, all questions answered, agreed to proceed - Vitals/I&O/Wt Last Vital Signs Temp 102.7 F H 06/12/23 11:35 Pulse 87 06/12/23 12:10 Resp 25 H 06/12/23 12:10 BP 101/58 06/12/23 12:10 Pulse Ox 92 06/12/23 12:10 O2 Del Method Nasal Cannula 06/12/23 12:05 O2 Flow Rate 2 06/12/23 12:05 06/11/23 06/12/23 06/12/23 22:59 06:59 14:59 Intake Total 424 / 617.110 9667.000 / 2520.167 619.375 / 619.375 Output Total 250 / 250 600 / 850 Balance 174 / 272.069 3183.000 / 1670.167 619.375 / 619.375 Weight last 48 hrs Weight 80.739 kg Physical Exam Const: COMMON NORMALS: no acute distress ORIENTATION/CONSCIOUSNESS: Yes awake, Yes oriented to person, Yes oriented to place and Yes confused; not oriented to time Resp: COMMON NORMALS: normal respiratory effort, No retractions and No use of accessory muscles AUSCULTATION: crackles and wheezes Cardio: COMMON NORMALS: S1 normal heart sound present and S2 normal heart sound present RATE: tachycardic RHYTHM: abnormal rhythm irregularly irregular HEART SOUNDS: S1 normal heart sound present and S2 normal heart sound present GI: OTHER: Abdomen soft, distended, decreased bowel sounds, diffuse tenderness, no guarding, no rebound, no rigidity Neuro: SENSORIUM/ORIENTATION: Yes oriented to person, Yes oriented to place and No oriented to time Sepsis: Is patient septic: Yes Focused sepsis exam performed: Yes Focused sepsis exam: DP PT pulses palpable but diminished, mottling of bilateral extremities at the level of bilateral knees, capillary refill greater than 3 seconds Date exam was performed: 06/12/23 Time exam was performed: 08:00 Data 06/12/23 03:00 06/12/23 10:59 Micro: Microbiology 06/11/23 12:16 Blood Culture - Preliminary Blood NEGATIVE TO DATE 06/11/23 12:16 Blood Culture - Preliminary Blood NEGATIVE TO DATE 06/11/23 19:10 Bacterial Antigens - Final Urine,Clean Catch A&P Assessment and plan (1) Sepsis: (2) Right upper lobe pneumonia: Qualifiers: Pneumonia type: due to unspecified organism Qualified Code(s): J18.9 - Pneumonia, unspecified organism (3) Acute kidney injury: (4) Elevated lactic acid level: (5) Atrial fibrillation with rapid ventricular response: (6) Elevated procalcitonin: (7) Hypoxia: (8) Acute encephalopathy: (9) Hyponatremia: (10) Metabolic acidosis: (11) NSTEMI (non-ST elevated myocardial infarction): (12) Goals of care, counseling/discussion: (13) Encounter for smoking cessation counseling: (14) Abdominal aortic aneurysm (AAA) greater than 5.5 cm in diameter in male: (15) Rhabdomyolysis: (16) Acute respiratory failure with hypoxia: Plan Symptomatic abdominal aortic aneurysm 1.? Lobulated aneurysmal infrarenal abdominal aortic aneurysm measuring 7.2 x 9.2 x 8.8 cm AP by transverse by craniocaudal with peripheral mural thrombus. No evidence of acute rupture. 2.? 50% narrowing of the upper abdominal aorta due to peripheral mural thrombus. -Mottling up to the level of bilateral knees, DP PT is diminished bilaterally, abdomen diffusely tender, has complaints of back pain, and flank pain bilaterally -Concerns for impending rupture -ESR is 72, also concern for mycotic aneurysm, as he remains febrile -He is on antibiotic therapy -We will be transferred to [facility] for urgent vascular surgery consultation and evaluation Hyponatremia -Likely hypovolemic hyponatremia -Nephrology consulted -On IV fluids -Serum sodiums every 4 hours -Neurochecks, aspiration precautions Sepsis secondary to pneumonia -Sepsis criteria met, with febrile state, A-fib, with probable prior history of A-fib, leukocytosis, elevated lactic acid, elevated CRP, elevated creatinine, source of infection right upper lobe pneumonia, encephalopathy Right upper lobe pneumonia CT of the chest posterior right upper lobe infiltrates suspicious for pneumonia. There are also subpleural interstitial opacities greatest in the lung bases bilaterally which may be chronic. Correlate with history and pulmonary function testing and recommend follow up after treatment. 2. ? Mediastinal adenopathy may be reactive in this context. Correlate clinically. -Monitor respiratory status closely -Oxygen therapy -Follow CRP, Pro-Jef -Follow blood cultures, sputum cultures, respiratory viral panel negative -Brought antibiotic coverage, vancomycin, Zosyn -Clear liquid diet, speech therapy eval, aspiration precautions -Does have a history of smoking, no diagnosis of COPD, Decadron Acute encephalopathy -Likely secondary to right upper lobe pneumonia, sepsis -CT of the head no acute findings A-fib with RVR -Currently on Cardizem drip -Corey Vasc score is 1 NSTEMI, likely type II -Likely associate with right upper lobe pneumonia, hypoxia, sepsis -However cannot rule out underlying cardiac etiology -Aspirin, statin -Cardiac echo Normal left ventricular size and systolic function, EF 55? % ?(visual). No regional wall motion abnormalities. ?Thickened aortic valve. ?Trace tricuspid valve regurgitation.? Estimated pulmonary artery ?peak systolic pressure 28 mmHg. ?Dilated IVC with normal respiratory variation. ?There is no pericardial effusion. ?There are no intracardiac masses. ?No similar previous studies are available for comparison Acute kidney injury -Likely secondary to sepsis, right upper lobe pneumonia -IV fluids Lactic acidosis, secondary to sepsis as above Metabolic acidosis secondary to sepsis as above Rhabdomyolysis, IV fluids Goals of care discussion patient is a full code DVT prophylaxis as is, anticoagulation currently on hold as there is concern for possible surgical intervention, abdominal aortic aneurysm Protonix for GI prophylaxis Smoking cessation counseling Attestations Medical Necessity Statement*: Patient requires hospitalization, abdominal aortic aneurysm, febrile state, pneumonia, NSTEMI, MARILYN, hyponatremia, rhabdomyolysis Critical Care Time: Critical care time spent over 80 minutes Coding Level of Care Code Critical Care >/= 30 minutes Critical care time (in minutes): 80 The high probability of a clinically significant, sudden or life threatening deterioration, as referenced in this documentation, required my full and direct attention, intervention and personal management. The critical care time shown is in addition to time spent performing any reported separately billable procedures and includes the following: [x] Data and vital sign review and interpretation [x] Patient assessment, examination and intervention [x] Medication orders and management [x] Patient/Family updates as able [x] Care Coordination and Documentation. Diagnoses Sepsis A41.9 Right upper lobe pneumonia J18.9 Pneumonia type: due to unspecified organism Acute kidney injury N17.9 Elevated lactic acid level R79.89 Atrial fibrillation with rapid ventricular response I48.91 Elevated procalcitonin R79.89 Hypoxia R09.02 Acute encephalopathy G93.40 Hyponatremia E87.1 Metabolic acidosis E87.20 NSTEMI (non-ST elevated myocardial infarction) I21.4 Goals of care, counseling/discussion Z71.89 Encounter for smoking cessation counseling Z71.6 Abdominal aortic aneurysm (AAA) greater than 5.5 cm in diameter in male I71.40 Rhabdomyolysis M62.82 Acute respiratory failure with hypoxia J96.01
--- NOTE | 2023-06-12 13:36 | PC.NURSE ---
Report called to [facility], surgical ICU,MARIA ESTHER Whittington. Room 44-33 assigned.
--- NOTE | 2023-06-12 14:02 | XR_ITS ---
WS: [id number] Exam: XR chest 1V portable [id number] Date/Time of Exam: 06/12/2023 2:02 PM Reason For Exam: PICC line placement Comparison with the latest exam performed earlier on this same day at 5:34 AM. A right-sided PICC line is been placed and ends in the lower one third of the SVC. The lungs remain f ully expanded. Consolidating infiltrate in the right upper lobe is unchanged. There also may be some infiltrate in the mid and lower left lung. Heart size is within normal limits for technique. Bony str uctures are intact. XR/XR chest 1V portable [id number] IMPRESSION: 1. Right-sided PICC line in satisfactory position. 2. Consolidating pneumonia in the right upper lobe unchanged. There may be new infiltrate in the mid and lower left lung since the prior study. This might als o be secondary to limited inspiration.
--- NOTE | 2023-06-12 14:49 | PM.TDS ---
Transfer Summary Providers Date of Admission: 06/11/23 15:09 Date of Discharge/Transfer: 06/12/23 Attending Provider at Admission: Willy Loredo MD Attending Provider at Transfer: Willy Loredo MD Transfer Plans: Anticipated date of transfer: 06/12/23. Diagnoses at Discharge Discharge Diagnosis (1) Sepsis: Status: Acute (2) Right upper lobe pneumonia: Status: Acute Qualifiers: Pneumonia type: due to unspecified organism Qualified Code(s): J18.9 - Pneumonia, unspecified organism (3) Acute kidney injury: Status: Acute (4) Elevated lactic acid level: Status: Acute (5) Atrial fibrillation with rapid ventricular response: Status: Acute (6) Elevated procalcitonin: Status: Acute (7) Hypoxia: Status: Acute (8) Acute encephalopathy: Status: Acute (9) Hyponatremia: Status: Acute (10) Metabolic acidosis: Status: Acute (11) NSTEMI (non-ST elevated myocardial infarction): Status: Acute (12) Goals of care, counseling/discussion: Status: Acute (13) Encounter for smoking cessation counseling: Status: Acute (14) Abdominal aortic aneurysm (AAA) greater than 5.5 cm in diameter in male: Status: Acute (15) Rhabdomyolysis: Status: Acute (16) Acute respiratory failure with hypoxia: Status: Acute Reason for Visit Reason for Visit Weakness and running fever Confusion Hospital Course Hospital Course Alfred Pradhan is a 72 year old male with a past medical history of smoking, no diagnosis of lung disease, no history of CAD no history of strokes, no history of diabetes, no history of kidney disease, no reported significant past medical history, no past surgical history, he tells me for the last 96 hours, he has been sick, fevers, chills, fatigue, malaise, shortness of breath, he does report smoking he smokes about 6 cigarettes a day, does report decreased appetite, does report lightheadedness, does report dizziness, no chest pain, no palpitations does report a productive cough, no hemoptysis, no abdominal pain, no diarrhea, no sick contacts he has not received his COVID vaccinations, he tells me he has not seen a doctor in a long time, he has not ever had a stitch on him, he tells me for the last few days he continues to have fevers, his tells me that several times she has found him on the floor so weak that he cannot get up off the floor, due to weakness and high-grade fevers, denies any neck pain, no neck stiffness, no headache, blurry vision, no paresthesias he lives with his , 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, during my history taking patient would often become confused, would often look to his for answers Patient was admitted to [facility] pneumonia with sepsis with lactic acidosis with MARILYN, with A-fib with RVR with hypoxia, with acute encephalopathy, to the ICU, managed with Cardizem, broad-spectrum antibiotic therapy, IV fluids, close clinical monitoring overnight - Patient was examined multiple times throughout the mornin -Overnight she remained febrile -Remains normotensive not on pressor -Remains in A-fib on Cardizem going to 12.5 -On 3 -Alert, awake, follows commands, but has episodes of encephalopathy -This morning he was examined with at bedside -Discussed his pneumonia, continues to be febrile, so far his blood cultures are negative, his CRP is 281, Pro-Jef is 8, given that he remains febrile, I am going to add on azithromycin, he does have evidence of rhabdomyolysis CPK is 474, I will add on IV fluids, he also has evidence of worsening kidney function, will consult nephrology, -He also has evidence of hyponatremia, serum sodium 126, will continue to monitor, every 4 hours, nephrology consulted potentially hypovolemic hyponatremia, receiving IV fluids -Discussed echocardiogram -He tells me that has been having abdominal pain for the last few months, but now this morning its significantly worsen, he is also having flank pain bilaterally and no lower back pain, feeling nauseous -On examination abdomen is soft, distended, diffusely tender, no guarding, no rebound, no rigidity -He has persistent mottling of bilateral lower extremities up to the level of bilateral knees, no significant mottling of abdomen -DP PT pulses bilateral lower extremities are palpable but diminished, dopplerable, capillary refill greater than 3 seconds, pale hue to bilateral lower extremity -His creatinine is 2.2 this morning lactic acid is 3, spoke to nephrology, consulted for worsening MARILYN -At this point there was concerns for worsening sepsis, however he remains on pressors, renal ultrasound was ordered -I had a call from Dr. Osborn that there was concerns for abdominal aortic aneurysm, -Immediately reexamined patient, continues to complain of abdominal pain, back pain, abdomen is nonpulsatile, he remains hemodynamically stable, remains on Cardizem -Remains febrile -Due to concerns for atypical infection azithromycin was added for antibiotic coverage -Creatinine is 2.2, but answers concerns for abdominal aortic aneurysm impending rupture, dissection, leak, possible mycotic aneurysm, discussed risk and benefits of CT angiogram with contrast with patient and , they voiced understanding, all questions answered, risk of dialysis, risk of renal failure, they voiced understanding of all questions answered, as this is a life-threatening situation I have recommended for a CT angiogram of the abdomen pelvis with contrast to be formed, he agreed to proceed -CT angiogram of the abdomen pelvis revealed a 7 x 8 x 9 cm abdominal aortic aneurysm I reviewed this with radiology, Dr. Barr, no evidence of dissection, or rupture, or leak -However I am still concerned for mycotic aneurysm, and asymptomatic, ESR is 72 -Spoke to Dr. Freed cardiothoracic surgery, given size, and patient's symptomatology, he recommended transfer for emergent vascular surgery evaluation -Spoke to [facility], spoke to vascular surgery, spoke to them about my concerns about asymptomatic abdominal aneurysm, size, his ESR 72 my concern is for impending rupture possible mycotic aneurysm -Spoke to vascular surgery, patient has been accepted at [facility] -I spoke to patient, his , his brother at bedside -Discussed life-threatening nature of these diagnoses, and the urgency for transfer for vascular surgery eval, they are agreeable -I discussed the risks of transfer, morbidity and mortality discussed about transfer, risk of in transfer, him and his voiced understanding, voiced understanding, all questions answered, agreed to proceed - Examined multiple throughout the afternoon -Remains febrile, receiving IV Tylenol, ibuprofen as needed -Blood pressures are on the softer end, order placed for PICC line, PICC line nurse in place -No fixed wing available, no Air-Evac available, will transfer via ground -Patient has been accepted at [place], awaiting transfer team, PICC line being placed, -Patient examined, febrile, alert, awake, A-fib, heart rates in the 80s to 90s, Cardizem Assessment and plan (1) Sepsis: (2) Right upper lobe pneumonia: ?Qualifiers: ?Pneumonia type:?due to unspecified organism? Qualified Code(s):?J18.9 - Pneumonia, unspecified organism (3) Acute kidney injury: (4) Elevated lactic acid level: (5) Atrial fibrillation with rapid ventricular response: (6) Elevated procalcitonin: (7) Hypoxia: (8) Acute encephalopathy: (9) Hyponatremia: (10) Metabolic acidosis: (11) NSTEMI (non-ST elevated myocardial infarction): (12) Goals of care, counseling/discussion: (13) Encounter for smoking cessation counseling: (14) Abdominal aortic aneurysm (AAA) greater than 5.5 cm in diameter in male: (15) Rhabdomyolysis: (16) Acute respiratory failure with hypoxia: Plan Symptomatic abdominal aortic aneurysm 1.? Lobulated aneurysmal infrarenal abdominal aortic aneurysm measuring 7.2 x 9.2 x 8.8 cm AP by transverse by craniocaudal with peripheral mural thrombus. No evidence of acute rupture. 2.? 50% narrowing of the upper abdominal aorta due to peripheral mural thrombus. -Mottling up to the level of bilateral knees, DP PT is diminished bilaterally, abdomen diffusely tender, has complaints of back pain, and flank pain bilaterally -Concerns for impending rupture -ESR is 72, also concern for mycotic aneurysm, as he remains febrile -He is on antibiotic therapy -We will be transferred to [facility] for urgent vascular surgery consultation and evaluation Hyponatremia -Likely hypovolemic hyponatremia -Nephrology consulted -On IV fluids -Serum sodiums every 4 hours -Neurochecks, aspiration precautions Sepsis secondary to pneumonia -Sepsis criteria met, with febrile state, A-fib, with probable prior history of A-fib, leukocytosis, elevated lactic acid, elevated CRP, elevated creatinine, source of infection right upper lobe pneumonia, encephalopathy Right upper lobe pneumonia CT of the chest posterior right upper lobe infiltrates suspicious for pneumonia. There are also subpleural interstitial opacities greatest in the lung bases bilaterally which may be chronic. Correlate with history and pulmonary function testing and recommend follow up after treatment. 2. ? Mediastinal adenopathy may be reactive in this context. Correlate clinically. -Monitor respiratory status closely -Oxygen therapy -Follow CRP, Pro-Jef -Follow blood cultures, sputum cultures, respiratory viral panel negative -Brought antibiotic coverage, vancomycin, Zosyn -Clear liquid diet, speech therapy eval, aspiration precautions -Does have a history of smoking, no diagnosis of COPD, Decadron Acute encephalopathy -Likely secondary to right upper lobe pneumonia, sepsis -CT of the head no acute findings A-fib with RVR -Currently on Cardizem drip -Corey Vasc score is 1 NSTEMI, likely type II -Likely associate with right upper lobe pneumonia, hypoxia, sepsis -However cannot rule out underlying cardiac etiology -Aspirin, statin -Cardiac echo Normal left ventricular size and systolic function, EF 55? % ?(visual). No regional wall motion abnormalities. ?Thickened aortic valve. ?Trace tricuspid valve regurgitation.? Estimated pulmonary artery ?peak systolic pressure 28 mmHg. ?Dilated IVC with normal respiratory variation. ?There is no pericardial effusion. ?There are no intracardiac masses. ?No similar previous studies are available for comparison Acute kidney injury -Likely secondary to sepsis, right upper lobe pneumonia -IV fluids Lactic acidosis, secondary to sepsis as above Metabolic acidosis secondary to sepsis as above Rhabdomyolysis, IV fluids Goals of care discussion patient is a full code DVT prophylaxis as is, anticoagulation currently on hold as there is concern for possible surgical intervention, abdominal aortic aneurysm Protonix for GI prophylaxis Smoking cessation counseling Physical Exam Const: COMMON NORMALS: no acute distress EXAM LIMITATIONS: altered mental status ORIENTATION/CONSCIOUSNESS: Yes awake, Yes oriented to person, Yes oriented to place and Yes confused; not oriented to time Resp: COMMON NORMALS: normal respiratory effort, No retractions and No use of accessory muscles AUSCULTATION: wheezes Cardio: COMMON NORMALS: S1 normal heart sound present and S2 normal heart sound present HEART SOUNDS: S1 normal heart sound present and S2 normal heart sound present OTHER: Atrial fibrillation, rate well controlled GI: OTHER: Abdomen soft, diffusely tender, no guarding, no rebound, no rigidity Neuro: SENSORIUM/ORIENTATION: Yes oriented to person, Yes oriented to place and No oriented to time Psych: COMMON NORMALS: mental status grossly normal TS Data Studies Completed and Pending Pending at discharge Category Date Time Status CXRP [XR chest 1V portable [id number]] Routine Exams 06/12/23 14:02 Ordered Blood Culture Stat Lab 06/11/23 12:16 Results C Reactive Protein AM LABS Lab 06/13/23 04:00 Ordered C Reactive Protein AM LABS Lab 06/14/23 04:00 Ordered Complete Blood Count w/Auto AM LABS Lab 06/13/23 04:00 Ordered Complete Blood Count w/Auto AM LABS Lab 06/14/23 04:00 Ordered Comprehensive Metabolic Panel AM LABS Lab 06/13/23 04:00 Ordered Comprehensive Metabolic Panel AM LABS Lab 06/14/23 04:00 Ordered Creatine Phosphokinase AM LABS Lab 06/13/23 04:00 Ordered Creatine Phosphokinase AM LABS Lab 06/14/23 04:00 Ordered Lactate (Lactic Acid level) AM LABS Lab 06/13/23 04:00 Ordered Lactate (Lactic Acid level) AM LABS Lab 06/14/23 04:00 Ordered Magnesium AM LABS Lab 06/13/23 04:00 Ordered Magnesium AM LABS Lab 06/14/23 04:00 Ordered NT Pro B Type Natriuretic Pept QAM Lab 06/13/23 06:00 Ordered NT Pro B Type Natriuretic Pept QAM Lab 06/14/23 06:00 Ordered Phosphorus AM LABS Lab 06/13/23 04:00 Ordered Phosphorus AM LABS Lab 06/14/23 04:00 Ordered Procalcitonin AM LABS Lab 06/13/23 04:00 Ordered Procalcitonin AM LABS Lab 06/14/23 04:00 Ordered Sodium Q6H Lab 06/12/23 15:00 Ordered Sodium Q6H Lab 06/12/23 21:00 Ordered Sputum Culture and Gram Stain Stat Lab 06/11/23 15:13 Uncollected Labs from last 24 hours 06/12/23 06/12/23 06/12/23 10:59 03:32 03:32 WBC RBC Hgb Hct MCV MCH MCHC RDW Plt Count MPV Lymph % (Auto) Bulloch % (Auto) Lymph # (Auto) Bulloch # (Auto) Total Counted Atypical Lymphs % Absolute Neutrophils Segmented Neutrophils Abs Segm Neuts (Man) Band Neutrophils Abs Band Neuts (Man) Absolute Lymphocytes Lymphocytes (Manual) Monocytes (Manual) Absolute Monocytes Eosinophils (Manual) Absolute Eosinophils Basophils (Manual) Absolute Basophils Toxic Vacuolation Platelet Estimate Tear Drop Cells ESR 72 H PT INR APTT Fibrinogen Fibrin Degrad Products D-Dimer Specimen Type Sample Site ABG pH ABG pCO2 ABG pO2 ABG HCO3 ABG Base Excess Hi Test Hematocrit O2 Delivery Device FiO2 Pediatric Physical Therapy Assistant ID Sodium 122 L Potassium 3.8 Chloride 91 L Carbon Dioxide 16 L Anion Gap 18.8 BUN 34 H Creatinine 2.2 H GFR Calculation Not Reportable Glucose 155 H Estimat Average Glucose Hemoglobin A1c Calculated Osmolality 265 L Lactic Acid (Sepsis) Lactate 3.0 H Calcium 7.2 L Phosphorus Magnesium Total Bilirubin AST ALT Alkaline Phosphatase Creatine Kinase Troponin T 120 Minute Delta Troponin T Troponin T Hi Sens 6Hr Troponin T Hi Sens 6Hr Delta C-Reactive Protein NT-Pro-B Natriuret Pep Total Protein Albumin Globulin Triglycerides Cholesterol LDL Cholesterol, Calc HDL Cholesterol LDL/HDL Ratio Cholesterol/HDL Ratio Procalcitonin TSH Nasal Influ A H1 2008 PCR Adenovirus (PCR) C. pneumoniae DNA (PCR) Coronavirus 229E (PCR) Human Metapneumovir PCR Influenza A (H1) PCR Influenza A (H3) PCR Influenza Type A (PCR) Influenza Type B (PCR) M. pneumoniae (PCR) Parainfluenza 1 (PCR) Parainfluenza 2 (PCR) Parainfluenza 3 (PCR) Parainfluenza 4 (PCR) RSV Type A (PCR) RSV Type B (PCR) Entero/Rhino (PCR) SARS-CoV-2 (PCR) 06/12/23 06/12/23 06/12/23 03:32 03:00 03:00 WBC RBC Hgb Hct MCV MCH MCHC RDW Plt Count MPV Lymph % (Auto) Bulloch % (Auto) Lymph # (Auto) Bulloch # (Auto) Total Counted Atypical Lymphs % Absolute Neutrophils Segmented Neutrophils Abs Segm Neuts (Man) Band Neutrophils Abs Band Neuts (Man) Absolute Lymphocytes Lymphocytes (Manual) Monocytes (Manual) Absolute Monocytes Eosinophils (Manual) Absolute Eosinophils Basophils (Manual) Absolute Basophils Toxic Vacuolation Platelet Estimate Tear Drop Cells ESR PT INR APTT Fibrinogen Fibrin Degrad Products D-Dimer Specimen Type Sample Site ABG pH ABG pCO2 ABG pO2 ABG HCO3 ABG Base Excess Hi Test Hematocrit O2 Delivery Device FiO2 Pediatric Physical Therapy Assistant ID Sodium Potassium Chloride Carbon Dioxide Anion Gap BUN Creatinine GFR Calculation Glucose Estimat Average Glucose 123 Hemoglobin A1c 5.9 Calculated Osmolality Lactic Acid (Sepsis) Lactate Calcium Phosphorus Magnesium Total Bilirubin AST ALT Alkaline Phosphatase Creatine Kinase 474 H* Troponin T 120 Minute Delta Troponin T Troponin T Hi Sens 6Hr Troponin T Hi Sens 6Hr Delta C-Reactive Protein 281.4 H NT-Pro-B Natriuret Pep 86757 H Total Protein Albumin Globulin Triglycerides Cholesterol LDL Cholesterol, Calc HDL Cholesterol LDL/HDL Ratio Cholesterol/HDL Ratio Procalcitonin 8.44 H TSH Nasal Influ A H1 2008 PCR Adenovirus (PCR) C. pneumoniae DNA (PCR) Coronavirus 229E (PCR) Human Metapneumovir PCR Influenza A (H1) PCR Influenza A (H3) PCR Influenza Type A (PCR) Influenza Type B (PCR) M. pneumoniae (PCR) Parainfluenza 1 (PCR) Parainfluenza 2 (PCR) Parainfluenza 3 (PCR) Parainfluenza 4 (PCR) RSV Type A (PCR) RSV Type B (PCR) Entero/Rhino (PCR) SARS-CoV-2 (PCR) 06/12/23 06/12/23 06/11/23 03:00 03:00 18:01 WBC 8.9 RBC 4.98 Hgb 13.7 Hct 46.1 MCV 92.6 D MCH 27.5 L MCHC 29.7 L D RDW 15.9 H Plt Count 105 L MPV 8.6 Lymph % (Auto) Not Reportable Bulloch % (Auto) Not Reportable Lymph # (Auto) Not Reportable Bulloch # (Auto) Not Reportable Total Counted 100 Atypical Lymphs % 0.0 Absolute Neutrophils 8.5 H Segmented Neutrophils 92 Abs Segm Neuts (Man) 8.2 H Band Neutrophils 3.0 Abs Band Neuts (Man) 0.3 Absolute Lymphocytes 0.4 L Lymphocytes (Manual) 4 Monocytes (Manual) 1.0 Absolute Monocytes 0.1 Eosinophils (Manual) 0 Absolute Eosinophils 0.0 Basophils (Manual) 0.0 Absolute Basophils 0.0 Toxic Vacuolation 1+ H Platelet Estimate Decreased Tear Drop Cells 1+ ESR PT INR APTT Fibrinogen Fibrin Degrad Products D-Dimer Specimen Type Sample Site ABG pH ABG pCO2 ABG pO2 ABG HCO3 ABG Base Excess Hi Test Hematocrit O2 Delivery Device FiO2 Pediatric Physical Therapy Assistant ID Sodium 126 L Potassium 4.4 Chloride 95 L Carbon Dioxide 14 L Anion Gap 21.4 H BUN 32 H Creatinine 2.2 H GFR Calculation Not Reportable Glucose 144 H Estimat Average Glucose Hemoglobin A1c Calculated Osmolality 271 L Lactic Acid (Sepsis) Lactate Calcium 7.9 L Phosphorus 2.4 L Magnesium 2.2 Total Bilirubin 0.6 AST 43 H ALT 25 Alkaline Phosphatase 54 Creatine Kinase Troponin T 120 Minute Delta Troponin T Troponin T Hi Sens 6Hr 52.71 H Troponin T Hi Sens 6Hr Delta 5.71 C-Reactive Protein NT-Pro-B Natriuret Pep Total Protein 6.8 Albumin 3.1 L Globulin 3.7 Triglycerides Cholesterol LDL Cholesterol, Calc HDL Cholesterol LDL/HDL Ratio Cholesterol/HDL Ratio Procalcitonin TSH Nasal Influ A H1 2008 PCR Adenovirus (PCR) C. pneumoniae DNA (PCR) Coronavirus 229E (PCR) Human Metapneumovir PCR Influenza A (H1) PCR Influenza A (H3) PCR Influenza Type A (PCR) Influenza Type B (PCR) M. pneumoniae (PCR) Parainfluenza 1 (PCR) Parainfluenza 2 (PCR) Parainfluenza 3 (PCR) Parainfluenza 4 (PCR) RSV Type A (PCR) RSV Type B (PCR) Entero/Rhino (PCR) SARS-CoV-2 (PCR) 06/11/23 06/11/23 06/11/23 15:21 15:04 14:20 WBC RBC Hgb Hct MCV MCH MCHC RDW Plt Count MPV Lymph % (Auto) Bulloch % (Auto) Lymph # (Auto) Bulloch # (Auto) Total Counted Atypical Lymphs % Absolute Neutrophils Segmented Neutrophils Abs Segm Neuts (Man) Band Neutrophils Abs Band Neuts (Man) Absolute Lymphocytes Lymphocytes (Manual) Monocytes (Manual) Absolute Monocytes Eosinophils (Manual) Absolute Eosinophils Basophils (Manual) Absolute Basophils Toxic Vacuolation Platelet Estimate Tear Drop Cells ESR PT INR APTT Fibrinogen Fibrin Degrad Products D-Dimer Specimen Type Arterial Sample Site Radial, left ABG pH 7.44 ABG pCO2 23.3 L ABG pO2 69.7 L ABG HCO3 15.8 L ABG Base Excess -6.2 L Hi Test Pos Hematocrit 43.7 O2 Delivery Device Room air FiO2 21.0 Pediatric Physical Therapy Assistant ID [place] Sodium Potassium Chloride Carbon Dioxide Anion Gap BUN Creatinine GFR Calculation Glucose Estimat Average Glucose Hemoglobin A1c Calculated Osmolality Lactic Acid (Sepsis) 3.8 H Lactate Calcium Phosphorus Magnesium Total Bilirubin AST ALT Alkaline Phosphatase Creatine Kinase Troponin T 120 Minute Delta Troponin T Troponin T Hi Sens 6Hr Troponin T Hi Sens 6Hr Delta C-Reactive Protein NT-Pro-B Natriuret Pep Total Protein Albumin Globulin Triglycerides Cholesterol LDL Cholesterol, Calc HDL Cholesterol LDL/HDL Ratio Cholesterol/HDL Ratio Procalcitonin TSH Nasal Influ A 2008 PCR Not detected Adenovirus (PCR) Not detected C. pneumoniae DNA (PCR) Not detected Coronavirus 229E (PCR) Not detected Human Metapneumovir PCR Not detected Influenza A (H1) PCR Not detected Influenza A (H3) PCR Not detected Influenza Type A (PCR) Not detected Influenza Type B (PCR) Not detected M. pneumoniae (PCR) Not detected Parainfluenza 1 (PCR) Not detected Parainfluenza 2 (PCR) Not detected Parainfluenza 3 (PCR) Not detected Parainfluenza 4 (PCR) Not detected RSV Type A (PCR) Not detected RSV Type B (PCR) Not detected Entero/Rhino (PCR) Not detected SARS-CoV-2 (PCR) Not detected 06/11/23 06/11/23 06/11/23 14:07 11:56 11:56 WBC RBC Hgb Hct MCV MCH MCHC RDW Plt Count MPV Lymph % (Auto) Bulloch % (Auto) Lymph # (Auto) Bull[place] # (Auto) Total Counted Atypical Lymphs % Absolute Neutrophils Segmented Neutrophils Abs Segm Neuts (Man) Band Neutrophils Abs Band Neuts (Man) Absolute Lymphocytes Lymphocytes (Manual) Monocytes (Manual) Absolute Monocytes Eosinophils (Manual) Absolute Eosinophils Basophils (Manual) Absolute Basophils Toxic Vacuolation Platelet Estimate Tear Drop Cells ESR PT 14.20 INR 1.06 APTT 34.1 Fibrinogen 681 H Fibrin Degrad Products Pos, 10-40 H D-Dimer 8.29 H Specimen Type Sample Site ABG pH ABG pCO2 ABG pO2 ABG HCO3 ABG Base Excess Hi Test Hematocrit O2 Delivery Device FiO2 Pediatric Physical Therapy Assistant ID Sodium Potassium Chloride Carbon Dioxide Anion Gap BUN Creatinine GFR Calculation Glucose Estimat Average Glucose Hemoglobin A1c Calculated Osmolality Lactic Acid (Sepsis) Lactate Calcium Phosphorus Magnesium Total Bilirubin AST ALT Alkaline Phosphatase Creatine Kinase 652 H* Troponin T 120 Minute 50.08 H Delta Troponin T 3.08 Troponin T Hi Sens 6Hr Troponin T Hi Sens 6Hr Delta C-Reactive Protein 294.8 H NT-Pro-B Natriuret Pep 8094 H Total Protein Albumin Globulin Triglycerides 152 H Cholesterol 167 LDL Cholesterol, Calc 99 HDL Cholesterol 38 L LDL/HDL Ratio 2.61 Cholesterol/HDL Ratio 4.39 Procalcitonin TSH 1.71 Nasal Influ A H1 2009 PCR Adenovirus (PCR) C. pneumoniae DNA (PCR) Coronavirus 229E (PCR) Human Metapneumovir PCR Influenza A (H1) PCR Influenza A (H3) PCR Influenza Type A (PCR) Influenza Type B (PCR) M. pneumoniae (PCR) Parainfluenza 1 (PCR) Parainfluenza 2 (PCR) Parainfluenza 3 (PCR) Parainfluenza 4 (PCR) RSV Type A (PCR) RSV Type B (PCR) Entero/Rhino (PCR) SARS-CoV-2 (PCR) Completed Studies During Hospitalization Category Date Time Status CT abdomen pelvis w con* [id number] Stat Cat Scan 06/12/23 10:[address] chest wo con [id number] Stat Cat Scan 06/11/23 15:[address] head wo con* [id number] Stat Cat Scan 06/11/23 15:13 Completed CXRP [XR chest 1V portable [id number]] Routine Exams 06/12/23 05:02 Completed XR chest 1V portable [id number] Stat Exams 06/11/23 11:47 [place] [id number] Stat Ultrasound 06/11/23 18:22 Completed CV. echo complete* [id number] Routine Ultrasound 06/11/23 15:53 Completed US renal BI* [id number] Stat Ultrasound 06/12/23 08:19 Completed Laboratory Last Values WBC 8.9 10^3/uL (4.0-10.0) 06/12/23 03:00 RBC 4.98 10^6/uL (4.1-5.3) 06/12/23 03:00 Hgb 13.7 g/dL (11.7-16.6) 06/12/23 03:00 Hct 46.1 % (42.0-52.0) 06/12/23 03:00 MCV 92.6 fl (80-94) D 06/12/23 03:00 MCH 27.5 pg (28.0-34.0) L 06/12/23 03:00 MCHC 29.7 g/dL (30.0-36.0) L D 06/12/23 03:00 RDW 15.9 % (12.1-15.1) H 06/12/23 03:00 Plt Count 105 10^3/cmm (130-400) L 06/12/23 03:00 MPV 8.6 fL (7.4-10.4) 06/12/23 03:00 Neut % (Auto) 91.8 % 06/11/23 11:56 Lymph % (Auto) Not Reportable 06/12/23 03:00 Bulloch % (Auto) Not Reportable 06/12/23 03:00 Eos % (Auto) 0.0 % 06/11/23 11:56 Baso % (Auto) 0.4 % 06/11/23 11:56 Neut # (Auto) 11.20 10^3/uL (1.8-7.7) H 06/11/23 11:56 Lymph # (Auto) Not Reportable 06/12/23 03:00 Bulloch # (Auto) Not Reportable 06/12/23 03:00 Eos # (Auto) 0.0 10^3/uL (0.0-0.8) 06/11/23 11:56 Baso # (Auto) 0.1 10^3/uL (0.0-0.1) 06/11/23 11:56 Nucleated RBC % (auto) 0 % 06/11/23 11:56 Total Counted 100 (0-100) 06/12/23 03:00 Atypical Lymphs % 0.0 % (0-5) 06/12/23 03:00 Absolute Neutrophils 8.5 10^3/cmm (1.4-6.5) H 06/12/23 03:00 Segmented Neutrophils 92 % 06/12/23 03:00 Abs Segm Neuts (Man) 8.2 10/cmm (1.6-7.1) H 06/12/23 03:00 Band Neutrophils 3.0 % 06/12/23 03:00 Abs Band Neuts (Man) 0.3 10^3/cmm (0.0-1.2) 06/12/23 03:00 Absolute Lymphocytes 0.4 10^3/cmm (1.2-3.4) L 06/12/23 03:00 Lymphocytes (Manual) 4 % 06/12/23 03:00 Monocytes (Manual) 1.0 % 06/12/23 03:00 Absolute Monocytes 0.1 10^3/cmm (0.1-0.6) 06/12/23 03:00 Eosinophils (Manual) 0 % 06/12/23 03:00 Absolute Eosinophils 0.0 10^3/cmm (0.0-0.7) 06/12/23 03:00 Basophils (Manual) 0.0 % 06/12/23 03:00 Absolute Basophils 0.0 10^3/cmm (0.0-0.2) 06/12/23 03:00 Nucleated RBCs # 0.0 /100WBC 06/11/23 11:56 Toxic Vacuolation 1+ H 06/12/23 03:00 Platelet Estimate Decreased (Normal) 06/12/23 03:00 Tear Drop Cells 1+ 06/12/23 03:00 ESR 72 mm/hr (0-10) H 06/12/23 03:32 PT 14.20 SECONDS (12.1-14.9) 06/11/23 11:56 INR 1.06 (0.8-1.2) 06/11/23 11:56 APTT 34.1 SECONDS (23.9-36.7) 06/11/23 11:56 Fibrinogen 681 mg/dL (174-498) H 06/11/23 11:56 Fibrin Degrad Products Pos, 10-40 ug/mL (NEG) H 06/11/23 11:56 D-Dimer 8.29 ug/mIFEU (0-0.59) H 06/11/23 11:56 Specimen Type Arterial 06/11/23 15:04 Sample Site Radial, left 06/11/23 15:04 ABG pH 7.44 (7.35-7.45) 06/11/23 15:04 ABG pCO2 23.3 mmHg (35-45) L 06/11/23 15:04 ABG pO2 69.7 mmHg (80.0-100.0) L 06/11/23 15:04 ABG HCO3 15.8 mmol/L (22-26) L 06/11/23 15:04 ABG Base Excess -6.2 mmol/L (-2.0-2.0) L 06/11/23 15:04 Hi Test Pos 06/11/23 15:04 Hematocrit 43.7 % (42-52) 06/11/23 15:04 O2 Delivery Device Room air 06/11/23 15:04 FiO2 21.0 % 06/11/23 15:04 Pediatric Physical Therapy Assistant ID [place] 06/11/23 15:04 Sodium 122 mmol/L (136-145) L 06/12/23 10:59 Potassium 3.8 mmol/L (3.5-5.1) 06/12/23 10:59 Chloride 91 mmol/L (98-107) L 06/12/23 10:59 Carbon Dioxide 16 mmol/L (22-29) L 06/12/23 10:59 Anion Gap 18.8 (5-19) 06/12/23 10:59 BUN 34 mg/dL (8-23) H 06/12/23 10:59 Creatinine 2.2 mg/dL (0.7-1.2) H 06/12/23 10:59 GFR Calculation Not Reportable 06/12/23 10:59 Glucose 155 mg/dL (65-115) H 06/12/23 10:59 Estimat Average Glucose 123 06/12/23 03:32 Hemoglobin A1c 5.9 % (4.0-6.0) 06/12/23 03:32 Calculated Osmolality 265 mOsm/kg (285-295) L 06/12/23 10:59 Lactic Acid 3.3 mmol/L (0.5-2.2) H 06/11/23 11:56 Lactic Acid (Sepsis) 3.8 mmol/L (0.5-2.2) H 06/11/23 14:20 Lactate 3.0 mmol/L (0.5-2.2) H 06/12/23 03:32 Calcium 7.2 mg/dL (8.5-10.5) L 06/12/23 10:59 Phosphorus 2.4 mg/dL (2.5-4.5) L 06/12/23 03:00 Magnesium 2.2 mg/dL (1.7-2.3) 06/12/23 03:00 Total Bilirubin 0.6 mg/dL (0.15-1.2) 06/12/23 03:00 AST 43 U/L (0-40) H 06/12/23 03:00 ALT 25 U/L (0-41) 06/12/23 03:00 Alkaline Phosphatase 54 U/L (40-130) 06/12/23 03:00 Creatine Kinase 474 U/L (39-308) H* 06/12/23 03:00 Troponin T Baseline 47 ng/L (0-15) H 06/11/23 11:56 Troponin T 120 Minute 50.08 ng/L (0-15) H 06/11/23 14:07 Delta Troponin T 3.08 ABS# (0-10) 06/11/23 14:07 Troponin T Hi Sens 6Hr 52.71 ng/L (0-15) H 06/11/23 18:01 Troponin T Hi Sens 6Hr Delta 5.71 ng/L (0-12) 06/11/23 18:01 C-Reactive Protein 281.4 mg/L (0.0-4.9) H 06/12/23 03:00 NT-Pro-B Natriuret Pep 39471 pg/mL (0-125) H 06/12/23 03:00 Total Protein 6.8 g/dL (6.6-8.7) 06/12/23 03:00 Albumin 3.1 g/dL (3.5-5.2) L 06/12/23 03:00 Globulin 3.7 g/dL (1.3-4.6) 06/12/23 03:00 Triglycerides 152 mg/dL (0-150) H 06/11/23 11:56 Cholesterol 167 mg/dL (0-200) 06/11/23 11:56 LDL Cholesterol, Calc 99 mg/dL (50-129) 06/11/23 11:56 HDL Cholesterol 38 mg/dL (60-100) L 06/11/23 11:56 LDL/HDL Ratio 2.61 RATIO (0.00-3.22) 06/11/23 11:56 Cholesterol/HDL Ratio 4.39 mg/dL (1.0-5.00) 06/11/23 11:56 Procalcitonin 8.44 ng/mL (0-0.5) H 06/12/23 03:00 TSH 1.71 uIU/mL (0.27-4.20) 06/11/23 11:56 Urine Color Yellow (Yellow) 06/11/23 14:17 Urine Appearance Sl hazy (CLEAR) A 06/11/23 14:17 Urine pH 5 (5-7) 06/11/23 14:17 Ur Specific [place] 1.020 (1.005-1.030) 06/11/23 14:17 Urine Protein 2+ (Negative) H 06/11/23 14:17 Urine Glucose (UA) Norm (Normal) 06/11/23 14:17 Urine Ketones 1+ (Negative) H 06/11/23 14:17 Urine Blood 3+ (Negative) H 06/11/23 14:17 Urine Nitrate Negative (Negative) 06/11/23 14:17 Urine Bilirubin Neg (Negative) 06/11/23 14:17 Urine Urobilinogen Norm mg/dL (Negative) 06/11/23 14:17 Ur Leukocyte Esterase Negative (Negative) 06/11/23 14:17 Urine RBC 0-4 /hpf (0-2) H 06/11/23 14:17 Urine WBC 5-10 /hpf (0-5) H 06/11/23 14:17 Ur Squamous Epith Cells None /hpf (0-5) 06/11/23 14:17 Amorphous Sediment 1+ /hpf 06/11/23 14:17 Urine Bacteria 1+ /hpf (NONE) H 06/11/23 14:17 Coarse Granular Casts 15-25 /lpf H 06/11/23 14:17 Nasal Influ A H1 2009 PCR Not detected (NOT DETECT) 06/11/23 15:21 Adenovirus (PCR) Not detected (NOT DETECT) 06/11/23 15:21 C. pneumoniae DNA (PCR) Not detected (NOT DETECT) 06/11/23 15:21 Coronavirus 229E (PCR) Not detected (NOT DETECT) 06/11/23 15:21 Human Metapneumovir PCR Not detected (NOT DETECT) 06/11/23 15:21 Influenza A (H1) PCR Not detected (NOT DETECT) 06/11/23 15:21 Influenza A (H3) PCR Not detected (NOT DETECT) 06/11/23 15:21 Influenza Type A (PCR) Not detected (NOT DETECT) 06/11/23 15:21 Influenza Type B (PCR) Not detected (NOT DETECT) 06/11/23 15:21 M. pneumoniae (PCR) Not detected (NOT DETECT) 06/11/23 15:21 Parainfluenza 1 (PCR) Not detected (NOT DETECT) 06/11/23 15:21 Parainfluenza 2 (PCR) Not detected (NOT DETECT) 06/11/23 15:21 Parainfluenza 3 (PCR) Not detected (NOT DETECT) 06/11/23 15:21 Parainfluenza 4 (PCR) Not detected (NOT DETECT) 06/11/23 15:21 RSV Type A (PCR) Not detected (NOT DETECT) 06/11/23 15:21 RSV Type B (PCR) Not detected (NOT DETECT) 06/11/23 15:21 Entero/Rhino (PCR) Not detected (NOT DETECT) 06/11/23 15:21 SARS-CoV-2 (PCR) Not detected (NOT DETECT) 06/11/23 15:[address] 06/11/23 15:13 IMPRESSION: 1. Posterior right upper lobe infiltrates suspicious for pneumonia. There are also subpleural interstitial opacities greatest in the lung bases bilaterally which may be chronic. Correlate with history and pulmonary function testing and recommend follow up after treatment. 2. Mediastinal adenopathy may be reactive in this context. Correlate clinically. COMMENTS: In the absence of a history or active diagnosis of lung cancer, it is recommended that this patient with emphysema be evaluated for enrollment in a low dose CT lung cancer screening program. Head CT 06/11/23 15:13 IMPRESSION: 1. No acute intracranial abnormality. 2. Asymmetric widening left jugular foramen that appears longstanding and possibly vascular nature. Recommend follow-up nonemergent MRI of the brain with contrast confirmation. Venous Duplex 06/11/23 18:22 IMPRESSION: No evidence of deep vein thrombosis. Chest X-Ray 06/12/23 05:02 IMPRESSION: 1. Increasing consolidating pneumonia in the right upper lobe. No other significant change. Renal Ultrasound 06/12/23 08:19 IMPRESSION: 1. Cortical scarring of the left kidney. The right kidney is unremarkable. No renal mass or obstruction. 2. Incidental finding of the aneurysmal dilatation of the infrarenal abdominal aorta that may measure as much as 6 cm at greatest diameter. The aneurysm is partially obscured by bowel gas. Further workup with CT could be considered for more detailed evaluation. These results were discussed by phone with , the attending physician at approximately 10:10 AM 06/12/2023. Abdomen/Pelvis CT 06/12/23 10:21 IMPRESSION: Some images degraded due to breathing artifact. 1. Lobulated aneurysmal infrarenal abdominal aortic aneurysm measuring 7.2 x 9.2 x 8.8 cm AP by transverse by craniocaudal with peripheral mural thrombus. No evidence of acute rupture. 2. 50% narrowing of the upper abdominal aorta due to peripheral mural thrombus. 3. Celiac and SMA are patent. 4. Trace bilateral pleural fluid. 5. Smooth luminal narrowing in the proximal sigmoid colon may be due to spasm or stricture. This can be followed up with sigmoidoscopy. 6. No other acute findings. Notified Willy Loredo MD at 06/12/2023 10:55 AM. Recent Clincial Data Last Vital Signs Temp 102.7 F H 06/12/23 11:35 Pulse 96 06/12/23 14:37 Resp 24 H 06/12/23 13:20 BP 101/58 06/12/23 12:10 Pulse Ox 95 06/12/23 13:20 O2 Del Method Nasal Cannula 06/12/23 13:20 O2 Flow Rate 2 06/12/23 13:20 Vital Signs Temp Pulse Resp BP Pulse Ox O2 Del Method O2 Flow Rate 06/12/23 14:37 96 06/12/23 13:30 93 06/12/23 13:20 85 24 H 95 Nasal Cannula 2 06/12/23 12:10 87 25 H 101/58 92 06/12/23 12:05 90 40 H 101/58 93 Nasal Cannula 2 06/12/23 12:00 94 46 H 120/63 94 Nasal Cannula 2 06/12/23 11:55 99 43 H 120/63 92 Nasal Cannula 2 06/12/23 11:50 87 36 H 120/63 93 Nasal Cannula 2 06/12/23 11:45 95 29 H 120/63 93 Nasal Cannula 2 06/12/23 11:40 97 49 H 120/63 94 Nasal Cannula 2 06/12/23 11:35 102.7 F H 97 42 H 120/63 94 Nasal Cannula 2 06/12/23 11:30 94 43 H 120/74 93 Nasal Cannula 2 06/12/23 11:25 97 51 H 120/74 93 Nasal Cannula 2 06/12/23 11:20 92 45 H 120/74 94 Nasal Cannula 2 06/12/23 11:15 99 42 H 120/74 94 Nasal Cannula 2 06/12/23 11:10 96 38 H 120/74 94 Nasal Cannula 2 06/12/23 11:05 91 43 H 120/74 93 Nasal Cannula 2 06/12/23 11:00 103 H 50 H 116/64 91 06/12/23 10:55 89 47 H 116/64 93 06/12/23 10:50 94 27 H 116/64 92 06/12/23 10:45 90 06/12/23 10:15 96 41 H 111/65 95 06/12/23 10:10 94 29 H 111/65 93 06/12/23 10:05 97 36 H 111/65 93 06/12/23 10:00 91 40 H 135/67 95 06/12/23 09:55 96 30 H 135/67 94 06/12/23 09:50 135/67 91 06/12/23 09:45 90 135/67 93 06/12/23 09:40 133 H 135/67 95 06/12/23 09:35 98 40 H 135/67 95 06/12/23 09:30 105 H 45 H 130/75 92 06/12/23 09:25 120 H 41 H 130/75 96 Nasal Cannula 2 06/12/23 09:20 98 37 H 130/75 95 Nasal Cannula 2 06/12/23 09:15 97 42 H 130/75 97 Nasal Cannula 2 06/12/23 09:10 103 H 30 H 130/75 95 Nasal Cannula 2 06/12/23 09:05 102 H 48 H 130/75 98 Nasal Cannula 2 06/12/23 09:00 107 H 40 H 137/76 95 Nasal Cannula 2 06/12/23 08:55 95 35 H 137/76 92 Nasal Cannula 2 06/12/23 08:50 100 46 H 137/76 95 Nasal Cannula 2 06/12/23 08:45 100.9 F H 119 H 25 H 137/76 86 L Nasal Cannula 2 06/12/23 08:40 114 H 43 H 137/76 93 Nasal Cannula 2 06/12/23 08:35 106 H 34 H 137/76 96 Nasal Cannula 2 06/12/23 08:30 102 H 38 H 109/52 96 Nasal Cannula 2 06/12/23 08:25 112 H 43 H 109/52 96 Nasal Cannula 2 06/12/23 08:20 104 H 31 H 109/52 95 Nasal Cannula 2 06/12/23 08:15 94 31 H 109/52 96 Nasal Cannula 2 06/12/23 08:10 102 H 31 H 109/52 95 Nasal Cannula 2 06/12/23 08:05 90 34 H 109/52 93 Nasal Cannula 2 06/12/23 08:00 95 28 H 113/67 93 Nasal Cannula 2 06/12/23 07:55 91 36 H 113/67 95 Nasal Cannula 2 06/12/23 07:50 85 32 H 113/67 94 Nasal Cannula 2 06/12/23 07:45 85 28 H 113/67 93 Nasal Cannula 2 06/12/23 07:40 89 30 H 113/67 92 Nasal Cannula 2 06/12/23 10:30 101.9 F H 07/17/23 07:51 85 06/12/23 07:46 83 18 93 Nasal Cannula 3 06/12/23 07:21 100.0 F H 06/12/23 06:00 92 06/12/23 05:00 103.3 F H 06/12/23 04:30 102 H 42 H 114/72 94 06/12/23 04:00 101 H 25 H 130/69 93 06/12/23 03:30 91 42 H 127/65 93 06/12/23 03:00 94 28 H 131/64 93 Intake & Output/Weight 06/10/23 06/11/23 06/12/23 06/13/23 06:59 06:59 06:59 06:59 Intake Total 2520.167 / 2520.167 676.042 / 676.042 Output Total 850 / 850 Balance 1670.167 / 1670.167 676.042 / 676.042 Weight 80.739 kg Vitals Last Vital Signs Temp 102.7 F H 06/12/23 11:35 Pulse 96 06/12/23 14:37 Resp 24 H 06/12/23 13:20 BP 101/58 06/12/23 12:10 Pulse Ox 95 06/12/23 13:20 O2 Del Method Nasal Cannula 06/12/23 13:20 O2 Flow Rate 2 06/12/23 13:20 TS Medications Medications Acetaminophen (Acetaminophen 325 Mg Tablet) 650 mg PO Q6H PRN PRN Reason: Mild/Mod Pain Or Temp >/= 101 Last Admin: 06/12/23 04:56 Dose: 650 mg Albuterol/Ipratropium (Ipratropium-Albuterol 3 Ml Neb) 3 ml INHALATION QID.RESPIRATORY DENITA Last Admin: 06/12/23 13:18 Dose: 3 ml Aspirin (Aspirin 81 Mg Ec Tablet) 81 mg PO DAILY DENITA Last Admin: 06/12/23 09:04 Dose: 81 mg Atorvastatin Calcium (Atorvastatin 40 Mg Tablet) 40 mg PO BEDTIME DENITA Last Admin: 06/11/23 20:18 Dose: 40 mg Dexamethasone (Dexamethasone 10 Mg/Ml Inj) 6 mg IVP Q24H DENITA Last Admin: 06/11/23 16:28 Dose: 6 mg Diltiazem HCl (Diltiazem 60 Mg Tablet) 60 mg PO Q6H DENITA Last Admin: 06/12/23 10:56 Dose: Not Given Diltiazem HCl 100 mg/ Sodium (Chloride) 100 mls @ 0 mls/hr IV .Q0M DENITA; Protocol Last Admin: 06/12/23 11:19 Dose: 12.5 mg/hr, 12.5 mls/hr Vancomycin HCl 1,000 mg/ (Sodium Chloride) 250 mls @ 250 mls/hr IV Q24H DENITA; Protocol Last Infusion: 06/12/23 05:56 Dose: Infused Piperacillin Sod/Tazobactam (Sod 3.375 gm/ Sodium Chloride) 50 mls @ 12.5 mls/hr IV Q8H DENITA; Protocol Last Infusion: 06/12/23 13:05 Dose: Infused Sodium Chloride (Sodium Chloride 0.9%) 1,000 mls @ 75 mls/hr IV .[id number] DENITA Last Admin: 06/12/23 10:59 Dose: Not Given Azithromycin 500 mg/ Sodium (Chloride) 250 mls @ 250 mls/hr IV Q24H DENITA; Protocol Last Infusion: 06/12/23 10:21 Dose: Infused Norepinephrine Bitartrate 4 mg (/ Dextrose) 254 mls @ 0 mls/hr IV .Q0M DENTIA; Protocol Ibuprofen (Ibuprofen 200 Mg Tablet) 400 mg PO Q6H PRN PRN Reason: FEVER Lanolin (Lanolin Oint 7 Gm) 1 applic TOPICAL PRN PRN PRN Reason: DRYNESS Last Admin: 06/12/23 11:36 Dose: 1 applic Morphine Sulfate (Morphine 4 Mg/Ml Sdv 1 Ml) 1 mg IVP Q4H PRN PRN Reason: SEVERE PAIN Naloxone HCl (Naloxone 0.4 Mg/Ml Sdv) 0.1 mg IVP Q2M PRN PRN Reason: OPIATERV Ondansetron HCl (Ondansetron 2 Mg/Ml Sdv 2 Ml) 4 mg IVP Q8H PRN PRN Reason: vomiting, or N/V if npo Pantoprazole Sodium (Pantoprazole 40 Mg Sdv) 40 mg IVP Q24H DENITA Last Admin: 06/11/23 16:33 Dose: 40 mg Discontinued Medications Acetaminophen (Acetaminophen 500 Mg Tablet) 1,000 mg PO ONCE ONE Stop: 06/11/23 14:54 Last Admin: 06/11/23 15:00 Dose: 1,000 mg Alprazolam (Alprazolam 0.5 Mg Tablet) 0.5 mg PO ONCE ONE Stop: 06/12/23 00:27 Last Admin: 06/12/23 00:31 Dose: 0.5 mg Diltiazem HCl (Diltiazem 5 Mg/Ml Sdv 5 Ml) 10 mg IVP ONCE ONE Stop: 06/11/23 11:48 Last Admin: 06/11/23 12:04 Dose: 10 mg Enoxaparin Sodium (Enoxaparin 40 Mg/0.4 Ml Syringe) 40 mg SUBCUT Q24H DENITA Last Admin: 06/11/23 16:35 Dose: 40 mg Furosemide (Furosemide 10 Mg/Ml Sdv 2ml) 20 mg IVP ONCE ONE Stop: 06/12/23 05:03 Last Admin: 06/12/23 05:20 Dose: 20 mg Furosemide (Furosemide 10 Mg/Ml Sdv 4ml) 40 mg IVP ONCE ONE Stop: 06/12/23 09:50 Last Admin: 06/12/23 11:19 Dose: 40 mg Heparin Sodium (Porcine) (Heparin 5,000 Unit/Ml Inj 1 Ml) 0 unit IV PRN PRN; Protocol PRN Reason: Heparin weight-base protocol Sodium Chloride (Sodium Chloride 0.9%) 1,000 mls @ 999 mls/hr IV .Q1H1M ONE Stop: 06/11/23 14:11 Last Admin: 06/11/23 13:35 Dose: 999 mls/hr Ceftriaxone Sodium 1,000 mg/ (Sodium Chloride) 50 mls @ 100 mls/hr IV ONCE ONE; Protocol Stop: 06/11/23 13:41 Last Infusion: 06/11/23 14:21 Dose: Infused Heparin Sodium/Sodium Chloride (Heparin Drip) 25,000 unit in 500 mls @ 0 mls/hr IV .Q0M DENITA; Protocol Acetaminophen (Acetaminophen) 1,000 mg in 100 mls @ 400 mls/hr IV ONCE ONE Stop: 06/12/23 11:56 Last Infusion: 06/12/23 12:33 Dose: Infused Sodium Chloride (Sodium Chloride 0.9%) 1,000 mls @ 50 mls/hr IV .Q20H DENITA Last Infusion: 06/12/23 13:48 Dose: 0 mls/hr Iohexol (Iohexol 350 Mg/Ml 500 Ml Btl (Per Ml)) 0 ml IV ONCE ONE Stop: 06/12/23 12:00 Last Admin: 06/12/23 11:59 Dose: 100 ml Metoprolol Tartrate (Metoprolol Tartrate 1 Mg/1 Ml Sdv 5 Ml) 5 mg IVP ONCE ONE Stop: 06/11/23 16:02 Last Admin: 06/11/23 16:52 Dose: Not Given Allergies No Known Allergies Allergy (Verified 06/11/23 11:49) Home Medications acetaminophen 650 mg tablet,extended release (Tylenol Arthritis Pain) 650 mg PO Q12H PRN pain/fever 06/11/23 [History Confirmed 06/11/23] Discharge Plan Discharge Patient Disposition: Home Condition: Stable Prescriptions: No Action acetaminophen [Tylenol Arthritis Pain] 650 mg Tablet Extended Release 650 mg PO Q12H PRN (Reason: pain/fever) Referrals: Priscilla Correa FNP [Referring] - (please arrange at the [facility] Patient Instructions: Opioid Safety Transfer Attestations Time Spent in Transfer Care: critical care time Critical Care Time (min): 60 Quality Metrics Clinical Quality Measures [ No reported AMI, CVA or VTE this stay] Coding Level of Care Code Critical Care >/= 30 minutes Critical care time (in minutes): 60 The high probability of a clinically significant, sudden or life threatening deterioration, as referenced in this documentation, required my full and direct attention, intervention and personal management. The critical care time shown is in addition to time spent performing any reported separately billable procedures and includes the following: [x] Data and vital sign review and interpretation [x] Patient assessment, examination and intervention [x] Medication orders and management [x] Patient/Family updates as able [x] Care Coordination and Documentation. Diagnoses Sepsis A41.9 Right upper lobe pneumonia J18.9 Pneumonia type: due to unspecified organism Acute kidney injury N17.9 Elevated lactic acid level R79.89 Atrial fibrillation with rapid ventricular response I48.91 Elevated procalcitonin R79.89 Hypoxia R09.02 Acute encephalopathy G93.40 Hyponatremia E87.1 Metabolic acidosis E87.20 NSTEMI (non-ST elevated myocardial infarction) I21.4 Goals of care, counseling/discussion Z71.89 Encounter for smoking cessation counseling Z71.6 Abdominal aortic aneurysm (AAA) greater than 5.5 cm in diameter in male I71.40 Rhabdomyolysis M62.82 Acute respiratory failure with hypoxia J96.01
[2023-06-12] MEDS: dexamethasone 10 mg/mL INJ 6 MG IVP (15:34)
[2023-06-12] MEDS: pantoprazole 40 mg SDV IVP (15:35)
[2023-06-12] MEDS: vancomycin 1,000 MG in sodium chloride 0.9% 250 ML 250 MG IV (15:53)
--- NOTE | 2023-06-12 16:12 | PC.NURSE ---
1410- Spoke with and family and went over risks and benefits for inserting a PICC line, then signed consent because pt has been confused. I also spoke to pt and explained what I was doing and he seemed to understand. He was cooperative and slept during most of the procedure.
--- NOTE | 2023-06-12 16:14 | PC.NURSE ---
Patient in care of [facility] ambulance staff. Jasper peralta sent with Jeana Mijares
--- NOTE | 2023-06-12 16:26 | PC.NURSE ---
Nelsy RN, at [facility] notified that patient is in route via [facility]. Vitals stable at time of transfer. PICC in place, 18G L AC in good order, Patient family at bedside aware of transfer and to update , all belongings with family, Jasper peralta sent with EMS for transport, pharmacy notified. Dr. Loredo notified of patients departure from facility. Dr. Bowen made aware of transfer at last correspondence, via telephone.
[2023-06-12 16:28] LABS: Sodium 126 mmol/L (136-145)
--- NOTE | 2023-06-21 13:06 | DCPLANNER ---
environmental manager called patient due to no primary care physician - spoke with patients , she declined at this time.
== END 2023-06-12 16:20 | disposition short-term general hospital (02) | DRG 871 ==
LOC: ER 13:08 → ICU 15:18
PROVIDERS: Admitting Provider Family Medicine; Emergency Provider Emergency Medicine; Visit Provider Family Medicine
DX: A41.9 Sepsis, unspecified organism (principal); G93.41 Metabolic encephalopathy; J18.9 Pneumonia, unspecified organism; I21.A1 Myocardial infarction type 2; E87.20 Acidosis, unspecified; N17.9 Acute kidney failure, unspecified; M62.82 Rhabdomyolysis; E87.1 Hypo-osmolality and hyponatremia; F17.210 Nicotine dependence, cigarettes, uncomplicated; I48.91 Unspecified atrial fibrillation; I71.43 Infrarenal abdominal aortic aneurysm, without rupture
CPT/HCPCS: 36415; 36569; 36600; 70450; 71045; 71250; 74177; 76770; 80048; 80053; 80061; 81001; 82550; 82803; 83036; 83605; 83735; 83880; 84100; 84145; 84295; 84443; 84484; 85007; 85025; 85362; 85378; 85384; 85610; 85651; 85730; 86140; 86403; 87040; 87077; 87205; 87486; 87581; 87633; 92523; 92610; 93005; 93306; 93970; 94640; 94664; 96365; 96366; 96367; 96372; 96375; 96376; 99291; 99292; C1751; C9113; J0131; J0456; J0696; J1100; J1650; J1940; J2543; J3370; J3490; J7030; J7050; Q9967

== ENCOUNTER 2023-06-25 03:27 | Inpatient (IN) | payer MEDICARE, SELFPAY ==
[2023-06-25] VITALS (65 sets, daily range): BP systolic 98–126; BP diastolic 57–85; PULSE 64–144; RESP 20–34; TEMP 36.6–37.8; O2SAT 87–98; BMI 24.5; BMI 29.1
--- NOTE | 2023-06-25 03:52 | ECG_ITS ---
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 Measurements Intervals [place] Rate: 139 P: 0 IA: 0 QRS: -31 QRSD: 89 T: -1 QT: 285 QTc: 434 Interpretive Statements ATRIAL FIBRILLATION WITH RAPID VENTRICULAR RESPONSE LEFT AXIS DEVIATION [QRS AXIS < -30] POSSIBLE RIGHT VENTRICULAR CONDUCTION DELAY [RSR (QR) IN V1/V2] NONSPECIFIC ST & T-WAVE ABNORMALITY Compared to ECG 06/11/2023 17:56:48 Left-axis deviation now present T-wave abnormality now present Incomplete right bundle-branch block no longer present Left anterior fascicular block no longer present Electronically Signed On 06-26-2023 8:32:19 CDT by Carlos Shrestha M.D. [id number]
--- NOTE | 2023-06-25 03:52 | XRR_ITS ---
PROCEDURE INFORMATION: Exam: XR Chest Exam date and time: 06/25/2023 4:02 AM Age: 72 years old Clinical indication: Shortness of breath; Patient HX: C/O SOB. Tachycardic on monitor. TECHNIQUE: Imaging protocol: Radiologic exam of the chest. Views: 1 view. COMPARISON: CR XR chest 1V portable [id number] 06/12/2023 3:16 PM FINDINGS: Tubes, catheters and devices: Interval PICC line removal. Lungs: Scattered bilateral airspace opacities are redemonstrated. There is increasing upper lobe consolidative changes bilaterally. Coarse increased reticular interstitial lung changes bilaterally. Hypoaerated lungs. Pleural spaces: Unremarkable. No pleural effusion. No pneumothorax. Heart/Mediastinum: Mild cardiac enlargement. Bones/joints: Unremarkable. XR/XR chest 1V portable [id number] IMPRESSION: Increased multifocal airspace opacities which may represent worsening pneumonia.
[2023-06-25] MEDS: dilTIAZem 5 mg/mL SDV 5 mL 15 MG IVP (03:56)
[2023-06-25 04:02] LABS: Basophils % 0.3 %; Eosinophils # 0.1 10^3/uL (0.0-0.8); Eosinophils % 0.9 %; Hematocrit 27.4 % (42.0-52.0); Hemoglobin 8.8 g/dL (11.7-16.6); Lymphocytes % 18.7 %; Mean Corpuscular HGB Conc 32.1 g/dL (30.0-36.0); Mean Corpuscular Hemoglobin 27.4 pg (28.0-34.0); Mean Corpuscular Volume 85.4 fl (80-94); Mean Platelet Volume 9.1 fL (7.4-10.4); Monocytes # 0.5 10^3/uL (0.2-0.9); Monocytes % 4.3 %; Neutrophils % 74.9 %; Nucleated Red Blood Cells % 0 %; Platelet Count 226 10^3/cmm (130-400); Red Blood Count 3.21 10^6/uL (4.1-5.3); Red Cell Distribution Width 16.7 % (12.1-15.1); White Blood Count 10.8 10^3/uL (4.0-10.0)
[2023-06-25 04:14] LABS: INR 1.57 (0.8-1.2)
[2023-06-25 04:15] LABS: Partial Thromboplastin Time 33.6 SECONDS (23.9-36.7)
[2023-06-25 04:34] LABS: ABG PCO2 26.4 mmHg (35-45); ABG PH Result 7.51 (7.35-7.45); Arterial Blood Gas Hematocrit 22.6 % (42-52); Base Excess ABG -1.3 mmol/L (-2.0-2.0); Blood Gas Allen Test Pos; Blood Gas Sample Site Radial, left; Blood Gas Sample Type Arterial; HCO3 ABG 21.3 mmol/L (22-26); Oxygen Device NC; PO2 ABG 73.3 mmHg (80.0-100.0)
[2023-06-25 04:34] LABS: Troponin(5th) Baseline 23 ng/L (0-15)
--- NOTE | 2023-06-25 04:38 | W.ED.SOB ---
HPI - SOB/Dyspnea General: Chief Complaint: Shortness of Breath/Dyspnea Stated Complaint: SOB Time Seen by Provider: 06/25/23 03:30 Source: patient and family History of Present Illness: HPI Narrative: 72-year-old male with a complex medical history. He had a recent admission for pneumonia here with rapid atrial fibrillation. A large abdominal aortic aneurysm was found, and the patient was transferred to [place]. He had endovascular sleeve placement for repair there, and returned home Socrates night. He woke up this morning significantly short of breath. He is not complaining of chest pain. He had been off of oxygen for the past several days in the hospital. He arrives by EMS. He was given a breathing treatment in route. He is requiring 4 L of oxygen to sat 90%. He is tachypneic, and in mild respiratory distress. MD elicited complaint: shortness of breath Pertinent past history: other Onset (ago): hour(s) Context: recent illness and other Timing: constant and progressively worsening Severity: moderate Exacerbating factors: lying flat Relieving factors: oxygen Known history of: other Associated symptoms: Reports chest congestion, cough and orthopnea; Deny abdominal pain, chest pain, diaphoresis, fever(s), nausea or vomiting Treatment prior to arrival: oxygen and bronchodilator Review of Systems Const: Denies: fever(s) or diaphoresis ENMT: Denies: throat pain Card: Reports: orthopnea; Denies: chest pain Resp: Reports: dyspnea, non-productive cough and chest congestion GI: Denies: abdominal pain, nausea or vomiting Skin/Breast: Reports: rash (Belly) [facility] ED PFSH: Medical History Atrial fibrillation Sepsis Surgical History S/P endovascular aneurysm repair Family History Mother CAD (coronary artery disease) Father Colon cancer Social History Smoking and tobacco status: current every day smoker Alcohol intake: never Substance/Drug Use: never Physical Exam Const: GENERAL APPEARANCE: ill appearing and frail appearing HENMT: COMMON NORMALS: normocephalic and atraumatic HEAD & SCALP: normocephalic and atraumatic FACE & SINUS: normal facial exam and face symmetric Eye: COMMON NORMALS: Equal, round and reactive pupils present PUPIL: Yes Equal, round and reactive pupils present Neck/C-Spine: GENERAL: Yes trachea midline Chest: CHEST: Yes Symmetrical chest wall rise Resp: EFFORT & INSPECTION: Yes tachypneic, Yes labored and Yes uses accessory muscles AUSCULTATION: rales and wheezes Cardio: RATE: tachycardic RHYTHM: abnormal rhythm irregularly irregular Extremity: GENERAL: Yes edema Neuro: DELMI COMA SCALE: document GCS findings [place] coma scale eye opening: Spontaneous [place] coma scale verbal response: Orientated [place] coma scale motor response: Obey commands Delmi coma scale total score: 15 Psych: COMMON NORMALS: cooperative Course Vital Signs: Vital signs: Vital Signs Temperature 97.8 F 06/25/23 03:30 Pulse Rate 108 H 06/25/23 06:01 Respiratory Rate 27 H 06/25/23 06:01 Blood Pressure 107/69 06/25/23 06:01 Pulse Oximetry 95 06/25/23 06:01 Oxygen Delivery Me thod Room Air 06/25/23 06:01 Oxygen Flow Rate 3 06/25/23 03:30 Fraction of Inspir ed Oxygen 50 06/25/23 04:37 MDM - SOB/Dyspnea Medical Decision Making 72-year-old gentleman with atrial fibrillation with rapid ventricular rate. Heart rates in the 130s to 150s. He is in mild respiratory distress as well. Saturations are marginal on 4 L of oxygen. He sounds wet on exam. He was placed on BiPAP with rapid improvement in his breathing. Heart rate is down to 100 or so. He was placed on Cardizem drip at 5 after a bolus of 15 mg to decrease his rate. Blood pressure currently 106/72. Chest x-ray reveals increased multifocal airspace opacities which may represent worsening pneumonia, although as likely can be heart failure. He has lower extremity swelling bilaterally. He is on apixaban, so PE is less likely. He is given IV Zosyn and vancomycin after blood cultures and lactic acid are drawn. He will be admitted to the CSU. Lab Data 06/25/23 03:35 06/25/23 03:35 Labs/Radiology: Radiology Impressions Chest X-Ray 06/25/23 03:52 IMPRESSION: Increased multifocal airspace opacities which may represent worsening pneumonia. Laboratory Results WBC 10.8 10^3/uL (4.0-10.0) H 06/25/23 03:35 RBC 3.21 10^6/uL (4.1-5.3) L 06/25/23 03:35 Hgb 8.8 g/dL (11.7-16.6) L 06/25/23 03:35 Hct 27.4 % (42.0-52.0) L 06/25/23 03:35 MCV 85.4 fl (80-94) 06/25/23 03:35 MCH 27.4 pg (28.0-34.0) L 06/25/23 03:35 MCHC 32.1 g/dL (30.0-36.0) 06/25/23 03:35 RDW 16.7 % (12.1-15.1) H 06/25/23 03:35 Plt Count 226 10^3/cmm (130-400) 06/25/23 03:35 MPV 9.1 fL (7.4-10.4) 06/25/23 03:35 Neut % (Auto) 74.9 % 06/25/23 03:35 Lymph % (Auto) 18.7 % 06/25/23 03:35 [place] % (Auto) 4.3 % 06/25/23 03:35 Eos % (Auto) 0.9 % 06/25/23 03:35 Baso % (Auto) 0.3 % 06/25/23 03:35 Neut # (Auto) 8.10 10^3/uL (1.8-7.7) H 06/25/23 03:35 Lymph # (Auto) 2.0 10^3/uL (0.8-4.8) 06/25/23 03:35 [place] # (Auto) 0.5 10^3/uL (0.2-0.9) 06/25/23 03:35 Eos # (Auto) 0.1 10^3/uL (0.0-0.8) 06/25/23 03:35 Baso # (Auto) 0.0 10^3/uL (0.0-0.1) 06/25/23 03:35 Nucleated RBC % (auto) 0 % 06/25/23 03:35 Nucleated RBCs # 0.0 /100WBC 06/25/23 03:35 PT 19.30 SECONDS (12.1-14.9) H 06/25/23 03:35 INR 1.57 (0.8-1.2) H 06/25/23 03:35 APTT 33.6 SECONDS (23.9-36.7) 06/25/23 03:35 Specimen Type Arterial 06/25/23 04:28 Sample Site Radial, left 06/25/23 04:28 ABG pH 7.51 (7.35-7.45) H 06/25/23 04:28 ABG pCO2 26.4 mmHg (35-45) L 06/25/23 04:28 ABG pO2 73.3 mmHg (80.0-100.0) L 06/25/23 04:28 ABG HCO3 21.3 mmol/L (22-26) L 06/25/23 04:28 ABG Base Excess -1.3 mmol/L (-2.0-2.0) 06/25/23 04:28 Hi Test Pos 06/25/23 04:28 Hematocrit 22.6 % (42-52) L 06/25/23 04:28 O2 Delivery Device Nc 06/25/23 04:28 O2 Liters/Min 4.0 % 06/25/23 04:28 FiO2 40.0 % 06/25/23 04:28 Chain Maker Machine ID [id number] 06/25/23 04:28 Sodium 135 mmol/L (136-145) L 06/25/23 03:35 Potassium 3.5 mmol/L (3.5-5.1) 06/25/23 03:35 Chloride 100 mmol/L (98-107) 06/25/23 03:35 Carbon Dioxide 20 mmol/L (22-29) L 06/25/23 03:35 Anion Gap 18.5 (5-19) 06/25/23 03:35 BUN 14 mg/dL (8-23) 06/25/23 03:35 Creatinine 1.2 mg/dL (0.7-1.2) 06/25/23 03:35 GFR Calculation Not Reportable 06/25/23 03:35 Glucose 138 mg/dL (65-115) H 06/25/23 03:35 Calculated Osmolality 283 mOsm/kg (285-295) L 06/25/23 03:35 Lactic Acid 1.1 mmol/L (0.5-2.2) 06/25/23 04:56 Calcium 7.4 mg/dL (8.5-10.5) L 06/25/23 03:35 Total Bilirubin 0.6 mg/dL (0.15-1.2) 06/25/23 03:35 AST 31 U/L (0-40) 06/25/23 03:35 ALT 11 U/L (0-41) 06/25/23 03:35 Alkaline Phosphatase 105 U/L (40-130) 06/25/23 03:35 Troponin T Baseline 23 ng/L (0-15) H 06/25/23 03:35 NT-Pro-B Natriuret Pep 4122 pg/mL (0-125) H 06/25/23 03:35 Total Protein 6.4 g/dL (6.6-8.7) L 06/25/23 03:35 Albumin 2.8 g/dL (3.5-5.2) L 06/25/23 03:35 Globulin 3.6 g/dL (1.3-4.6) 06/25/23 03:35 Critical Care Time Critical Care Time: Critical Care Time: Yes Total Critical Care Time: 35 Attestation: This case had a high probability of a clinically significant, sudden, or life threatening deterioration of this patient's condition which required my full and direct attention, intervention and personal management. Time is independent of any procedures performed Discharge Plan Discharge Patient Disposition: Admitted As Inpatient Admit Provider: Saqib Ingram Clinical Impression: Acute respiratory failure with hypoxia, Atrial fibrillation with rapid ventricular response, Multifocal pneumonia, Pulmonary edema Condition: Stable Coding Level of Care Code ED Director [place] for Marina Roberts
[2023-06-25 04:42] LABS: Alanine Aminotransferase 11 U/L (0-41); Albumin Level 2.8 g/dL (3.5-5.2); Alkaline Phosphatase 105 U/L (40-130); Anion Gap 18.5 (5-19); Aspartate Amino Transferase 31 U/L (0-40); Blood Urea Nitrogen 14 mg/dL (8-23); Calcium 7.4 mg/dL (8.5-10.5); Carbon Dioxide 20 mmol/L (22-29); Chloride 100 mmol/L (98-107); Globulin 3.6 g/dL (1.3-4.6); Glucose 138 mg/dL (65-115); NT Pro B Type Natriuretic Pept 4122 pg/mL (0-125); Osmolality Calculated 283 mOsm/kg (285-295); Potassium 3.5 mmol/L (3.5-5.1); Sodium 135 mmol/L (136-145); Total Bilirubin 0.6 mg/dL (0.15-1.2); Total Protein 6.4 g/dL (6.6-8.7)
[2023-06-25] MEDS: dilTIAZem 100 MG in sodium chloride 0.9% (add-van) 100 ML IV (04:42)
--- NOTE | 2023-06-25 04:51 | P.HP_ITS ---
Providers/Chief Complaint Admitting Physician: Saqib Ingram MD Chief Complaint: SOB History of Present Illness Alfred Pradhan is a 72 year old male with a past medical history significant for atrial fibrillation, tobacco use disorder, and infrarenal AAA status post recent endovascular repair who presents emergency department with shortness of breath x2 days. Of note, Patient recently presented to emergency department on 06/11 with intermittent fevers and confusion. He was admitted with sepsis with multiple comorbidities including right sided pneumonia, encephalopathy, atrial fibrillation with rapid ventricular rate, type II NSTEMI, lactic acidosis, metabolic acidosis, and hyponatremia. Further work-up revealed a large infrarenal AAA. He was transferred to [facility]. 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 While, at [facility], he underwent endovascular repair. He was reportedly discharged this past Monday not on any antibiotics and also on room air. He began develop shortness of breath over the weekend that progressively worsened In the ED, patient was found to require 4 L of oxygen. He was started on broad- spectrum antibiotics with vancomycin and Zosyn due to worsening pneumonia on chest plain films. He was also found to have recurrent atrial fibrillation treated with diltiazem. Review of Systems Narrative: A complete review of systems was obtained and is negative except as stated in HPI. Medications/Allergies Home Medications Medication Instructions Recorded Confirmed Last Taken Type albuterol sulfate 90 mcg/actuation 1 inh inhalation QID PRN Shortness 06/25/23 06/25/23 Unknown History aerosol inhaler (ProAir HFA) Of Breath amlodipine 10 mg tablet 10 mg PO DAILY 06/25/23 06/25/23 Unknown History apixaban 5 mg tablet (Eliquis) 5 mg PO BID 06/25/23 06/25/23 Unknown History aspirin 81 mg tablet,delayed 81 mg PO DAILY 06/25/23 06/25/23 Unknown History release atorvastatin 20 mg tablet 20 mg PO BEDTIME 06/25/23 06/25/23 Unknown History metoprolol tartrate 25 mg tablet 25 mg PO BID 06/25/23 06/25/23 Unknown History Allergies Allergy/AdvReac Type Severity Reaction Status Date / Time No Known Allergies Allergy Verified 06/11/23 11:49 PFSH Acute PFSH: Medical History Atrial fibrillation Sepsis Surgical History S/P endovascular aneurysm repair Family History Mother CAD (coronary artery disease) Father Colon cancer Social History Smoking and tobacco status: current every day smoker Alcohol intake: never Substance/Drug Use: never Vitals/I&O/Wt Last Vital Signs Temp 97.8 F 06/25/23 03:30 Pulse 110 H 06/25/23 04:37 Resp 20 H 06/25/23 03:30 BP 126/85 06/25/23 03:30 Pulse Ox 94 06/25/23 04:37 O2 Del Method Room Air 06/25/23 03:30 O2 Flow Rate 3 06/25/23 03:30 FiO2 50 06/25/23 04:37 Weight last 48 hrs Weight 71.214 kg Physical Exam Narrative: General: Patient is awake. Frail appearing. Wearing BiPAP. Head: Normocephalic. Atraumatic. EOMI. Neck: No JVD. Cardiovascular: Irregularly irregular. No gallops. No murmurs. Lungs: Bilateral rhonchi. No use of accessory muscles, no crackles or wheezes. BiPAP. Skin: No jaundice. No rashes. Abdomen: Normal bowel sounds, abdomen soft and nontender. Genito Urinary: Genital exam not performed since complaints not related. Rectal: Rectal exam not performed since no symptoms indicated blood loss. Extremities: No cyanosis or clubbing. Musculoskeletal: No swollen or erythematous joints. Neurological: Moves all 4 extremities. No myoclonus. Data 06/25/23 03:35 06/25/23 03:35 A&P Assessment and plan (1) Multifocal pneumonia: Recent hospitalization noted MRSA swab ordered Procal, CRP, bacterial urinary ag Start vancomycin, pharmacy to dose Start Zosyn for broad spectrum gram negative coverage Start doxycycline given recent positive blood culture Repeat blood cultures (2) Acute respiratory failure with hypoxia: Secondary to multifocal pneumonia, treat underlying infection Pulmonary toilet BiPAP as needed Possible component of pulmonary edema, consider diuresis pending clinical course (3) Atrial fibrillation with rapid ventricular response: Continue Cardizem drip (4) Abdominal aortic aneurysm (AAA) greater than 5.5 cm in diameter in male: Recent repair noted Monitor blood pressure and heart rate closely Only currently listed home med is Tylenol, will continue home meds after medication reconciliation Plan Code: Full Code Attestations Medical Necessity Statement*: Patient's hospitalization for work up and treatment of worsening multifocal pneumonia complicated by atrial fibrillation with rapid ventricular rate in the setting of recent surgery is expected to cross two midnights. Coding Level of Care Code Acute Code for [facility] Diagnoses Multifocal pneumonia J18.9 Acute respiratory failure with hypoxia J96.01 Atrial fibrillation with rapid ventricular response I48.91 Abdominal aortic aneurysm (AAA) greater than 5.5 cm in diameter in male I71.40
[2023-06-25] MEDS: FUROsemide 10 mg/mL SDV 10mL 60 MG IVP (05:16)
[2023-06-25] MEDS: piperacillin-tazobactam 4.5 GM in sodium chloride 0.9% (plus) 50 ML IV (05:17)
[2023-06-25 05:19] LABS: Lactic Sepsis W/Reflex 1.1 mmol/L (0.5-2.2)
--- NOTE | 2023-06-25 05:52 | ECG_ITS ---
[facility] Test Date: 2023-06-25 Pat Name: Alfred Pradhan Department: Room: 112 Gender: Male Sample Supervisor: : 1950 Requested By: Timur Cerrato Order Number: [id number] Dennis MD: Carlos Shrestha M.D. Measurements Intervals [place] Rate: 114 P: 0 DE: 0 QRS: -8 QRSD: 90 T: -5 QT: 317 QTc: 438 Interpretive Statements ATRIAL FIBRILLATION WITH RAPID VENTRICULAR RESPONSE NONSPECIFIC ST & T-WAVE ABNORMALITY Compared to ECG 06/25/2023 03:36:33 Left-axis deviation no longer present T-wave abnormality still present Electronically Signed On 06-26-2023 8:36:55 CDT by Carlos Shrestha M.D. [id number]
[2023-06-25 05:59] LABS: Troponin 5 2HR 26.59 ng/L (0-15)
[2023-06-25 06:01] LABS: Troponin 5 2HR Delta 3.59 ABS# (0-10)
--- NOTE | 2023-06-25 06:11 | PC.NURSE ---
Report called to Zoie in CSU, all questions answered at time of report.
[2023-06-25] MEDS: vancomycin 1,250 MG/250 ML PIGGYBACK 250 MG IV (06:15)
--- NOTE | 2023-06-25 06:35 | PC.NURSE ---
Report was called to MARIA ESTHER Lino in CSU.
[2023-06-25 07:48] LABS: Adenovirus Not Detected (NOT DETECT); Chlamydia Pneumoniae Not Detected (NOT DETECT); Coronavirus 229E,HKU1,NL63,OC4 Not Detected (NOT DETECT); Human Metapneumovirus Not Detected (NOT DETECT); Human Rhinovirus/Enterovirus Not Detected (NOT DETECT); Influenza A Not Detected (NOT DETECT); Influenza A H1 Not Detected (NOT DETECT); Influenza A H1-2009 Not Detected (NOT DETECT); Influenza A H3 Not Detected (NOT DETECT); Influenza B Not Detected (NOT DETECT); Mycoplasma Pneumoniae Not Detected (NOT DETECT); Parainfluenza Virus Type 1 Not Detected (NOT DETECT); Parainfluenza Virus Type 2 Not Detected (NOT DETECT); Parainfluenza Virus Type 3 Not Detected (NOT DETECT); Parainfluenza Virus Type 4 Not Detected (NOT DETECT); Respiratory Syncytial Virus A Not Detected (NOT DETECT); Respiratory Syncytial Virus B Not Detected (NOT DETECT); SARS-COV-2 Not Detected (NOT DETECT)
[2023-06-25] MEDS: doxycycline 100 MG in sodium chloride 0.9% (plus) 100 ML IV ×2 (08:31→18:27)
[2023-06-25] MEDS: piperacillin-tazobactam 3.375 GM in sodium chloride 0.9% (plus) 50 ML IV ×3 (08:32→23:26)
[2023-06-25 09:04] LABS: Procalcitonin 0.17 ng/mL (0-0.5)
[2023-06-25 10:29] LABS: Troponin 5 6HR 26.64 ng/L (0-15)
[2023-06-25 10:33] LABS: Troponin 5 6HR Delta 3.64 ng/L (0-12)
--- NOTE | 2023-06-25 12:35 | PM.MISC ---
Miscellaneous Note Note: Patient has spent 2 weeks at [facility] after AAA repair patient was discharged from ICU direct to home Patient was on room air at home Currently on BiPAP I have asked RT to put him on nasal cannula and let him eat Patient is stating that he is experiencing shortness of breath Stress test was pending however he was discharged home Patient has not seen a doctor until recently His AAA was about 11 cm as per the family Currently he is in A-fib RVR On Cardizem drip Patient is awake and alert GCS 15 Fluid overloaded Trace edema present Transition from BiPAP to nasal cannula GCS 15 Nonfocal neuro exam Son at the bedside I will request stress test likely tomorrow if he is able to lay flat Troponins flat, BNP 4000 Give low-dose Lasix Request records from [place] Continue antibiotics for concern of pneumonia Concern for pneumonia currently on broad-spectrum antibiotics Follow-up with cultures A-fib RVR on Cardizem drip if blood pressure drops will transition to amiodarone Patient is stating that he does not want to be hooked up with life support, goals of care will be readdressed for now we will keep him full code patient would like to discuss with his today
[2023-06-25] MEDS: dilTIAZem 30 mg Tablet PO ×2 (13:07→18:27)
[2023-06-25] MEDS: FUROsemide 10 mg/mL SDV 2mL 20 MG IVP (18:51)
[2023-06-25] MEDS: levalbuterol 1.25 mg/3 mL Neb INHALATION (19:39)
[2023-06-25] MEDS: apixaban 5 mg Tablet PO (20:58)
[2023-06-25] MEDS: sennosides 8.6 mg Tablet 17.2 MG PO (20:58)
[2023-06-25] MEDS: vancomycin 1,000 MG in sodium chloride 0.9% 250 ML 250 MG IV (21:59)
[2023-06-25] MEDS: diphenhydrAMINE 50 mg/mL SDV 1mL 25 MG IVP (22:12)
[2023-06-26] VITALS (15 sets, daily range): BP systolic 97–104; BP diastolic 55–66; PULSE 3–113; RESP 15–37; TEMP 36.6–37.7; O2SAT 85–97
[2023-06-26] MEDS: levalbuterol 1.25 mg/3 mL Neb INHALATION ×2 (00:41→08:18)
[2023-06-26] MEDS: dilTIAZem 30 mg Tablet PO ×5 (00:50→23:51)
[2023-06-26 03:27] LABS: Basophils % 0.3 %; Eosinophils # 0.1 10^3/uL (0.0-0.8); Eosinophils % 1.3 %; Hematocrit 24.2 % (42.0-52.0); Hemoglobin 7.8 g/dL (11.7-16.6); Lymphocytes # 1.7 10^3/uL (0.8-4.8); Lymphocytes % 23.4 %; Mean Corpuscular HGB Conc 32.2 g/dL (30.0-36.0); Mean Corpuscular Hemoglobin 27.4 pg (28.0-34.0); Mean Corpuscular Volume 84.9 fl (80-94); Mean Platelet Volume 9.2 fL (7.4-10.4); Monocytes # 0.3 10^3/uL (0.2-0.9); Monocytes % 4.5 %; Neutrophils % 69.8 %; Nucleated Red Blood Cells % 0 %; Platelet Count 200 10^3/cmm (130-400); Red Blood Count 2.85 10^6/uL (4.1-5.3); Red Cell Distribution Width 16.5 % (12.1-15.1); White Blood Count 7.2 10^3/uL (4.0-10.0)
[2023-06-26 03:43] LABS: D Dimer 6.13 ug/mIFEU (0-0.59)
[2023-06-26 03:49] LABS: Anion Gap 18.3 (5-19); Blood Urea Nitrogen 14 mg/dL (8-23); Calcium 6.8 mg/dL (8.5-10.5); Carbon Dioxide 21 mmol/L (22-29); Chloride 101 mmol/L (98-107); Glucose 127 mg/dL (65-115); Magnesium 1.2 mg/dL (1.7-2.3); Osmolality Calculated 286 mOsm/kg (285-295); Phosphorus 3.1 mg/dL (2.5-4.5); Potassium 3.3 mmol/L (3.5-5.1); Sodium 137 mmol/L (136-145)
[2023-06-26 03:54] LABS: Creatinine Clr Calc Pharmacy 46.2193; Procalcitonin 0.35 ng/mL (0-0.5); Thyroid Stimulating Hormone 2.57 uIU/mL (0.27-4.20)
[2023-06-26 04:01] LABS: Slide Review Slide Review Perform
[2023-06-26] MEDS: magnesium sulfate premix 2 GM/50 ML PIGGYBACK IV (05:38)
[2023-06-26] MEDS: doxycycline 100 MG in sodium chloride 0.9% (plus) 100 ML IV (06:39)
[2023-06-26] MEDS: FUROsemide 10 mg/mL SDV 10mL 60 MG IVP ×2 (07:54→19:45)
[2023-06-26] MEDS: piperacillin-tazobactam 3.375 GM in sodium chloride 0.9% (plus) 50 ML IV ×3 (07:54→23:27)
--- NOTE | 2023-06-26 08:40 | USCV_ITS ---
Alfred Pradhan Age: 72 Gender: M : 1950 Exam Date: 06/26/2023 09:23 Ordering Phys: Julita Villanueva MD Technologist: Jean Carlos Rondon Exam Location: [facility] [place]_ Indication: swelling PROCEDURES: Venous duplex imaging was performed in bilateral lower extremities. The following venous structures were evaluated: common femoral vein, profunda vein, proximal portion of the greater saphenous vein, superficial femoral vein, and the popliteal vein. In addition, the posterior tibial and peroneal trunk were evaluated. Serial compression, augmentation maneuvers, and spectral Doppler flow evaluation were performed. FINDINGS: Normal 2-D Doppler and augmentation and compressibility throughout the lower extremity venous structures. Additional imaging through the proximal calf veins also reveals no thrombus. Limited evaluation of the greater saphenous vein is patent with no thrombus. CONCLUSIONS No DVT bilateral lower extremities. Dr. Dina Kruse DO (Electronically Signed) Final Date: 26 June 2023 11:28 S
[2023-06-26] MEDS: enoxaparin 100 mg/mL Syringe 90 MG SUBCUT ×2 (08:58→21:50)
[2023-06-26] MEDS: potassium chloride oral liq 20 mEq/15 mL UDC 40 MEQ PO (09:45)
--- NOTE | 2023-06-26 10:35 | CT_ITS ---
WS: [id number] CT CHEST ANGIOGRAPHY WITH REFORMATS HISTORY: hypoxia TECHNIQUE: Contiguous axial images are obtained through the chest during arterial injection of intrav enous contrast. Images are reconstructed to evaluate the pulmonary arteries. MIP imaging also reviewe d. All CT scans at [facility] use at least one of these dose optimization techniques: automat ed exposure control; mA and/or kV adjustment per patient size (includes targeted exams where dose is matched to clinical indication); or iterative reconstruction. CONTRAST: Omnipaque 350; 100 mL IV. DLP: 377.72 mGy.cm COMPARISON: 06/11/2023 No central pulmonary embolism. Beyond the segmental branches the opacification within the lower lung m[place]innis becomes less through blast. Very small peripheral pulmonary emboli cannot be excluded. There i s no RIGHT heart strain. Mild cardiac enlargement. No pericardial effusion. Very small layering RIGHT pleural effusion. Increasing bilateral lobar opacifications since 06/11/2023. Multi lobar opacifications are now present . Most significant consolidation has developed in the RIGHT upper lobe. No pneumothorax. Prominent me diastinal and hilar lymphoid tissue with mild edema. Bilateral hilar adenopathy has progressed since the prior study and probably reactive based upon the rapid progression. Atherosclerosis thoracic aorta and suprarenal aorta. No adrenal mass. Hepatic steatosis is visualized . Marked increase in thoracic kyphosis. Mild anterior wedging of T5, T6. CT/CT angio chest PE protcl [id number] IMPRESSION: 1. No pulmonary embolism. Opacification of the pulmonary arteries becomes limi thea beyond the segmental branches in the lower lung mcginnis. 2. Significant progression of consolidation throughout multiple lobes since th e prior study consistent with pneumonia. Consider ARDS. 3. Increasing mediastinal and hilar lymphoid tissue. Probably reactive based u [place] the acute lung disease. 4. No RIGHT heart strain. 5. Small RIGHT pleural effusion.
--- NOTE | 2023-06-26 10:45 | P.PN_ITS ---
Subjective Subjective: This morning patient is stating that he is feeling better with use of BiPAP overnight Negative fluid balance Aggressive diuresis Requested CTA and venous Doppler to rule out DVT hemoglobin 7.8 requested FOBT Requested records from [place] No fever overnight Creatinine 1.5 Potassium 3.3 We will DC doxycycline and vancomycin Continue Zosyn Vitals/I&O/Wt Last Vital Signs Temp 98.0 F 06/26/23 08:00 Pulse 3 L 06/26/23 08:21 Resp 28 H 06/26/23 08:21 BP 102/58 06/26/23 08:00 Pulse Ox 93 06/26/23 08:21 O2 Del Method High Flow Nasal Cannula 06/26/23 08:21 O2 Flow Rate 5 06/26/23 08:21 FiO2 40 06/26/23 04:00 06/25/23 06/26/23 06/26/23 22:59 06:59 14:59 Intake Total 532.708 / 983.833 550 / 1533.833 100 / 100 Output Total 850 / 1445 500 / 1945 Balance -317.292 / -461.167 50 / -411.167 100 / 100 Weight last 48 hrs Weight 86.239 kg Weight 84.368 kg Weight 71.214 kg Physical Exam Narrative: Patient is laying supine Currently on 5 L nasal cannula Mild rhonchi present in the base of the lungs Abdomen soft Extremity trace edema GCS 15 Nonfocal neuro exam No active chest pain Urinary Catheter Management: [place]: Cath Placed During This Visit: yes Reason for Continuing Indwelling Catheter: Accurate Measurement of Urinary Output in Critically Ill Patients Urinary Catheter Date of Insertion: 06/25/23 Urinary Catheter Time of Insertion: 15:30 Data 06/26/23 02:03 06/26/23 02:03 Micro: Microbiology 06/25/23 05:35 Blood Culture - Preliminary Blood NEGATIVE TO DATE 06/25/23 04:56 Blood Culture - Preliminary Blood NEGATIVE TO DATE 06/25/23 06:01 MRSA Culture - Final Nose 06/25/23 05:58 Bacterial Antigens - Final Urine,Voided A&P Assessment and plan (1) Atrial fibrillation: (2) Multifocal pneumonia: (3) Pulmonary edema: (4) Acute respiratory failure with hypoxia: (5) Hyponatremia: (6) Acute encephalopathy: (7) Right upper lobe pneumonia: Qualifiers: Pneumonia type: due to unspecified organism Qualified Code(s): J18.9 - Pneumonia, unspecified organism (8) Acute kidney injury: (9) Elevated procalcitonin: (10) Atrial fibrillation with rapid ventricular response: Plan Hospital-acquired pneumonia Afebrile no leukocytosis De-escalate antibiotics to Zosyn Preserved ejection fraction heart exacerbation Continued aggressive IV diuresis Potassium supplementation Hypervolemic hyponatremia: Improved with diuresis A-fib RVR continue p.o. Cardizem IV Cardizem has been transitioned off High D-dimer rule out DVT and PE discontinue Eliquis start therapeutic Lovenox Stress test could not be done because patient is not able to lay flat, Hypokalemia: Repleted Patient is full code He wants to discuss further with his family to make a final decision regarding his CODE STATUS Patient does not want to go to alf, will request physical therapy Requested records from [place] patient's been more than 2 weeks when he was there for AAA repair Attestations Medical Necessity Statement*: Continue management Diagnoses Atrial fibrillation I48.91 Multifocal pneumonia J18.9 Pulmonary edema J81.1 Acute respiratory failure with hypoxia J96.01 Hyponatremia E87.1 Acute encephalopathy G93.40 Right upper lobe pneumonia J18.9 Pneumonia type: due to unspecified organism Acute kidney injury N17.9 Elevated procalcitonin R79.89 Atrial fibrillation with rapid ventricular response I48.91
[2023-06-26] MEDS: iohexol 350 mg/mL 500 mL Btl (per mL) IV (12:06)
--- NOTE | 2023-06-26 16:32 | PC.NURSE ---
Patient came via a wheelchair from the ED to CSU.
[2023-06-26] MEDS: potassium chloride oral liq 20 mEq/15 mL UDC PO (17:31)
[2023-06-26] MEDS: magnesium oxide 400 mg tablet PO (17:32)
[2023-06-26] MEDS: diphenhydrAMINE 50 mg/mL SDV 1mL 25 MG IVP ×2 (17:32→22:13)
[2023-06-26] MEDS: sennosides 8.6 mg Tablet 17.2 MG PO (21:51)
[2023-06-27] VITALS (16 sets, daily range): BP systolic 90–130; BP diastolic 55–72; PULSE 84–133; RESP 14–33; TEMP 36.6–39.2; O2SAT 21–99
[2023-06-27] MEDS: acetaminophen 325 mg Tablet 650 MG PO ×2 (00:24→13:00)
--- NOTE | 2023-06-27 01:22 | PC.NURSE ---
Patient rash has spread from abdomen onto back, pelvic area and to knees bilaterally and is very red. Patient was febrile with a temp of 102.5 F @ 00:00. Benadryl and acetaminophen was given and doctor was notified. Will continue to monitor.
--- NOTE | 2023-06-27 04:04 | PC.NURSE ---
Patient manual blood pressure was 78/48. Dr. Ingram was notified. Ric for labs and repeat blood pressure at 0430 and consult back with doctor Ingram.
[2023-06-27 04:37] LABS: Basophils % 0.1 %; Eosinophils # 0.2 10^3/uL (0.0-0.8); Eosinophils % 2.1 %; Hematocrit 25.2 % (42.0-52.0); Hemoglobin 8.1 g/dL (11.7-16.6); Lymphocytes # 1.2 10^3/uL (0.8-4.8); Lymphocytes % 15.8 %; Mean Corpuscular HGB Conc 32.1 g/dL (30.0-36.0); Mean Corpuscular Hemoglobin 26.9 pg (28.0-34.0); Mean Corpuscular Volume 83.7 fl (80-94); Mean Platelet Volume 9.6 fL (7.4-10.4); Monocytes # 0.2 10^3/uL (0.2-0.9); Monocytes % 2.2 %; Neutrophils # 5.99 10^3/uL (1.8-7.7); Neutrophils % 79.1 %; Nucleated Red Blood Cells % 0 %; Platelet Count 213 10^3/cmm (130-400); Red Blood Count 3.01 10^6/uL (4.1-5.3); Red Cell Distribution Width 16.5 % (12.1-15.1); White Blood Count 7.6 10^3/uL (4.0-10.0)
[2023-06-27 05:00] LABS: Anion Gap 19.6 (5-19); Blood Urea Nitrogen 21 mg/dL (8-23); Calcium 7.1 mg/dL (8.5-10.5); Carbon Dioxide 20 mmol/L (22-29); Chloride 96 mmol/L (98-107); Glucose 165 mg/dL (65-115); Osmolality Calculated 281 mOsm/kg (285-295); Potassium 3.6 mmol/L (3.5-5.1); Sodium 132 mmol/L (136-145)
[2023-06-27 05:10] LABS: Slide Review Slide Review Perform
[2023-06-27] MEDS: sodium chloride 0.9% 500 ML 100 ML IV (05:16)
--- NOTE | 2023-06-27 05:23 | PC.NURSE ---
0435 patients BP was 78/46 taken manually, creatinine was 1.9. Dr Ingram was notified and gave verbal order for 500 NS bolus. Bolus started @ 0516 running 100mL/hr per Dr orders.
[2023-06-27] MEDS: dilTIAZem 30 mg Tablet PO ×3 (06:02→17:48)
[2023-06-27] MEDS: diphenhydrAMINE 50 mg/mL SDV 1mL 25 MG IVP (06:48)
[2023-06-27] MEDS: FUROsemide 10 mg/mL SDV 10mL 60 MG IVP (07:33)
[2023-06-27] MEDS: piperacillin-tazobactam 3.375 GM in sodium chloride 0.9% (plus) 50 ML IV ×3 (07:34→22:49)
--- NOTE | 2023-06-27 09:14 | PC.PHAR ---
Patient: Floor: Age: 72 yo Serum creatinine: 1.9 mg/dL Height: 66.9 Inches Weight (kg): 80 IBW (kg): 65.87 Dosing wt(kg): 80 Estimated Creatinine clearance (ml/min): 32.7 CRCL method: Cockcroft and Gault using ibw(default). Drug selected: Vancomycin Loading dose (mg): Vd (liters): 56.0 (factor used: 0.7 L/kg) Eben (hr-1): 0.032 Half life (hrs): 21.66 CLvanco=?? 1.792 L/hr Recommended dose: 1000 mg Interval: 24 hrs Infusion time (hrs): 1 Predicted peak (mcg/mL): 32.8 Predicted trough (mcg/mL): 15.71 Total body weight is being used for vancomycin dosing. Recommendations: Give Vancomycin 1000 mg q 24 hrs with an expected Cpeak of 32.8 mcg/ml and an expected Ctrough of 15.71 mcg/ml AUC 0-24 /PATRICIA Data: PATRICIA 0.5 mcg/mL:?? AUC/PATRICIA:? 1116.1 PATRICIA 1.0 mcg/mL:?? AUC/PATRICIA:? 558.0 --------- PATRICIA 1.5 mcg/mL:?? AUC/PATRICIA:? 372.0 PATRICIA 2.0 mcg/mL:?? AUC/PATRICIA:? 279.0 Renal dosing of other antibiotics (review renal dosing of other medications and list guidelines here): Thank you for the consult, will continue to follow. Signature: Westley Munroe, [place]
[2023-06-27] MEDS: budesonide 0.5 mg/2 mL Neb INHALATION ×2 (09:22→19:55)
[2023-06-27] MEDS: levalbuterol 1.25 mg/3 mL Neb INHALATION (09:23)
[2023-06-27] MEDS: magnesium oxide 400 mg tablet PO ×2 (09:26→17:48)
[2023-06-27] MEDS: doxycycline 100 mg Tablet PO ×2 (09:26→17:48)
[2023-06-27] MEDS: enoxaparin 100 mg/mL Syringe 90 MG SUBCUT (09:27)
--- NOTE | 2023-06-27 09:29 | PC.PT ---
[place] is not appropriate for PT at this time. Patient declined PT but HR was above what is WNL for exercise with 118-140 observed with significant convulsing.
[2023-06-27] MEDS: amiodarone 50 mg/mL SDV 3 mL 150 MG IVP (09:47)
[2023-06-27] MEDS: potassium chloride oral liq 20 mEq/15 mL UDC 40 MEQ PO (09:58)
[2023-06-27] MEDS: potassium chloride oral liq 20 mEq/15 mL UDC PO ×2 (09:59→17:48)
--- NOTE | 2023-06-27 11:05 | PM.PN ---
Subjective Subjective: Events noted Requested blood cultures, MRSA PCR nares negative No leukocytosis No active signs of sepsis A-fib RVR low blood pressure Hold Lasix Start amnio Patient endorsing shortness of breath which is same as yesterday Currently on 5 L of oxygen Vitals/I&O/Wt Last Vital Signs Temp 102.1 F H 06/27/23 08:00 Pulse 133 H 06/27/23 09:49 Resp 30 H 06/27/23 09:24 BP 99/62 06/27/23 08:00 Pulse Ox 93 06/27/23 09:24 O2 Del Method Oxymask 06/27/23 09:24 O2 Flow Rate 5 06/27/23 09:24 FiO2 40 06/26/23 23:53 06/26/23 06/27/23 06/27/23 22:59 06:59 14:59 Intake Total 410 / 780 50 / 830 Output Total 1740 / 2965 350 / 3315 Balance -1330 / -2185 -300 / -2485 Weight last 48 hrs Weight 80.286 kg Weight 86.239 kg Weight 84.368 kg Physical Exam Narrative: Signs of fluid overload improving GCS 15 Nonfocal neuro exam Bilateral breath sounds with rhonchi and crackles Currently on 5 L GCS 15 Nonfocal neuro exam Fatigued and lethargic A-fib RVR Urinary Catheter Management: Lobato: Cath Placed During This Visit: yes Reason for Continuing Indwelling Catheter: Accurate Measurement of Urinary Output in Critically Ill Patients Urinary Catheter Date of Insertion: 06/25/23 Urinary Catheter Time of Insertion: 15:30 Data 06/27/23 03:31 06/27/23 03:31 Micro: Microbiology 06/27/23 09:13 Blood Culture - Preliminary Blood SPECIMEN COLLECTED 06/27/23 02:41 Occult Blood (FIT) - Final Stool - Stool Aspirate A&P Assessment and plan (1) Atrial fibrillation: (2) Multifocal pneumonia: (3) Pulmonary edema: (4) Acute respiratory failure with hypoxia: (5) Metabolic acidosis: (6) Hyponatremia: (7) Acute encephalopathy: (8) Right upper lobe pneumonia: Qualifiers: Pneumonia type: due to unspecified organism Qualified Code(s): J18.9 - Pneumonia, unspecified organism (9) Atrial fibrillation with rapid ventricular response: (10) Acute kidney injury: (11) Anemia: Plan Febrile events Multifocal pneumonia, hospital-acquired pneumonia, recent hospitalization at [facility] Pul edema Cardiac wheezing present Start budesonide Add broad-spectrum antibiotics Repeat cultures No leukocytosis, High D-dimer like related to infection CTA venous Doppler did not show any signs of clot Acute D CHF exacerbation Low blood pressure today, hold Lasix MARILYN with metabolic acidosis Start low-dose bicarb Creatinine worsening Patient received contrast yesterday Monitor for contrast-induced nephropathy Renally dose antibiotic Waiting on records from [facility] New onset A-fib: RVR Start amiodarone Continue with therapeutic Lovenox Full code Cardiac diet PT Patient does not want to go to SNF/rehab Attestations Medical Necessity Statement*: Continue medical management Diagnoses Atrial fibrillation I48.91 Multifocal pneumonia J18.9 Pulmonary edema J81.1 Acute respiratory failure with hypoxia J96.01 Metabolic acidosis E87.20 Hyponatremia E87.1 Acute encephalopathy G93.40 Right upper lobe pneumonia J18.9 Pneumonia type: due to unspecified organism Atrial fibrillation with rapid ventricular response I48.91 Acute kidney injury N17.9 Anemia D64.9
--- NOTE | 2023-06-27 11:12 | CTR_ITS ---
PROCEDURE INFORMATION: Exam: CT Abdomen And Pelvis Without Contrast Exam date and time: 06/27/2023 4:35 PM Age: 72 years old Clinical indication: Fever; Prior surgery; Surgery date: 6+ months; Surgery type: Aortic stent TECHNIQUE: Imaging protocol: Computed tomography of the abdomen and pelvis without contrast. Radiation optimization: All CT scans at this facility use at least one of these dose optimization techniques: automated exposure control; mA and/or kV adjustment per patient size (includes targeted exams where dose is matched to clinical indication); or iterative reconstruction. REPORTING DATA: Count of CT and Cardiac NM exams in prior 12 months: This patient has received 4 known CTs and 0 known cardiac nuclear medicine studies in the 12 months prior to the current study. COMPARISON: CT abdomen pelvis w con* [id number] 06/12/2023 10:29 AM RADIATION DOSE METRICS: Total DLP (mGy-cm): 673.24 FINDINGS: Limitations: The absence of intravenous contrast lessens the sensitivity of this study for solid organ abnormalities. Study is somewhat limited by patient respiratory motion. Left hemidiaphragm not fully included on this examination and parts of the spleen, stomach, and hepatic flexure are excluded from this exam. Lungs: There is some ground-glass opacity in the right lower lobe at the lung base worrisome for infectious or inflammatory disease. Pleural spaces: There is small right pleural effusion. Liver: There is no focal abnormality within the liver. Gallbladder and bile ducts: There is some calcific density within the gallbladder the could represent small stones or sludge. Pancreas: The pancreas is normal. Spleen: The spleen demonstrates punctate calcifications, consistent with remote granulomatous organism exposure. Adrenal glands: The adrenal glands are normal. Kidneys and ureters: Left kidney is moderately atrophic. Probable cyst upper pole left kidney not changed. The right kidney is normal. There is no evidence of hydronephrosis. There is no evidence of renal or ureteral calcifications. Stomach and bowel: There is no evidence of colitis/diverticulitis. There is no evidence of intestinal obstruction. Appendix: A normal appendix is identified. Intraperitoneal space: There is no evidence of free intraperitoneal fluid. Vasculature: There is large irregular abdominal aortic aneurysm with prominent anterolateral outpouching on the left side. This is difficult to measure due to its irregular shape and when measured in the same manner as on the previous examination it measures approximately 61 x 90 x 83 mm which is slightly less than on the previous examination. There are findings of stent graft repair. The stent graft can not be fully evaluated on this study without intravenous contrast. There is also mild left common iliac artery also slightly smaller. There are 1 or 2 tiny bubbles of air seen within the excluded portion of the abdominal aneurysm adjacent to the stent graft. These could potentially indicate infection depending upon the timing of the stent placement. As this appears to be a recent placement done since 06/12/2023 this may be some surgically induced air. Clinical correlation and follow-up suggested to see whether this air is increasing or resolving. There is no evidence of active leakage or extravasation. Lymph nodes: Unremarkable. No enlarged lymph nodes. Urinary bladder: Urinary bladder is drained by Lobato catheter. Reproductive: Unremarkable as visualized. Bones/joints: Unremarkable. No acute fracture. Soft tissues: There is some mild subcutaneous soft tissue edema in the flanks and lateral aspects of the proximal thighs which may represent early anasarca.. CT/CT abdomen pelvis wo con [id number] IMPRESSION: 1. Small right pleural effusion, decreased compared with 06/26/2023 CT chest 2. Right basilar ground-glass opacities consistent with pneumonia. 3. Findings of recent aortic stent graft repair without evidence of active leakage or extravasation. 4. A few tiny bubbles of air within the excluded portion of the aortic aneurysm. It is uncertain whether this is postoperative or indicates early infection. Clinical correlation follow-up suggested.
[2023-06-27] MEDS: digoxin 250 mcg/ml INJ 2 mL IVP (11:34)
[2023-06-27] MEDS: sodium bicarbonate 650 mg Tablet PO ×3 (11:34→20:02)
[2023-06-27] MEDS: vancomycin 1,000 MG in sodium chloride 0.9% 250 ML 250 MG IV (11:53)
[2023-06-27] MEDS: enoxaparin 80 mg/0.8 mL Syringe SUBCUT (20:03)
[2023-06-28] VITALS (14 sets, daily range): BP systolic 91–115; BP diastolic 48–68; PULSE 79–97; RESP 16–31; TEMP 36.4–38.6; O2SAT 91–97
[2023-06-28] MEDS: dilTIAZem 30 mg Tablet PO ×2 (00:23→05:58)
[2023-06-28 03:33] LABS: Basophils % 0.3 %; Eosinophils # 0.4 10^3/uL (0.0-0.8); Eosinophils % 4.8 %; Hematocrit 26.5 % (42.0-52.0); Hemoglobin 8.5 g/dL (11.7-16.6); Lymphocytes % 12.7 %; Mean Corpuscular HGB Conc 32.1 g/dL (30.0-36.0); Mean Corpuscular Hemoglobin 27.2 pg (28.0-34.0); Mean Corpuscular Volume 84.9 fl (80-94); Mean Platelet Volume 9.1 fL (7.4-10.4); Monocytes # 0.2 10^3/uL (0.2-0.9); Monocytes % 2.7 %; Neutrophils # 6.19 10^3/uL (1.8-7.7); Neutrophils % 78.6 %; Nucleated Red Blood Cells % 0 %; Platelet Count 214 10^3/cmm (130-400); Red Blood Count 3.12 10^6/uL (4.1-5.3); Red Cell Distribution Width 16.5 % (12.1-15.1); White Blood Count 7.9 10^3/uL (4.0-10.0)
[2023-06-28 03:57] LABS: Alanine Aminotransferase 15 U/L (0-41); Albumin Level 2.6 g/dL (3.5-5.2); Alkaline Phosphatase 78 U/L (40-130); Anion Gap 17.1 (5-19); Aspartate Amino Transferase 20 U/L (0-40); Blood Urea Nitrogen 23 mg/dL (8-23); Calcium 6.5 mg/dL (8.5-10.5); Carbon Dioxide 20 mmol/L (22-29); Chloride 98 mmol/L (98-107); Globulin 2.6 g/dL (1.3-4.6); Glucose 181 mg/dL (65-115); Osmolality Calculated 280 mOsm/kg (285-295); Potassium 4.1 mmol/L (3.5-5.1); Sodium 131 mmol/L (136-145); Total Bilirubin 0.8 mg/dL (0.15-1.2); Total Protein 5.2 g/dL (6.6-8.7)
[2023-06-28 04:03] LABS: Slide Review Slide Review Perform
[2023-06-28 04:38] LABS: Procalcitonin 0.55 ng/mL (0-0.5)
[2023-06-28] MEDS: piperacillin-tazobactam 3.375 GM in sodium chloride 0.9% (plus) 50 ML IV ×2 (06:38→15:40)
[2023-06-28] MEDS: budesonide 0.5 mg/2 mL Neb INHALATION ×2 (07:44→19:42)
[2023-06-28] MEDS: levalbuterol 1.25 mg/3 mL Neb INHALATION (07:44)
[2023-06-28] MEDS: sodium bicarbonate 650 mg Tablet PO ×2 (09:04→15:40)
[2023-06-28] MEDS: enoxaparin 80 mg/0.8 mL Syringe SUBCUT (09:04)
[2023-06-28] MEDS: doxycycline 100 mg Tablet PO (09:04)
[2023-06-28] MEDS: magnesium oxide 400 mg tablet PO ×2 (09:04→17:40)
[2023-06-28] MEDS: sodium chloride 0.9% 500 ML 999 ML IV (09:27)
[2023-06-28] MEDS: potassium chloride oral liq 20 mEq/15 mL UDC PO ×2 (09:32→17:40)
[2023-06-28] MEDS: potassium chloride oral liq 20 mEq/15 mL UDC 40 MEQ PO (09:37)
[2023-06-28] MEDS: diphenhydrAMINE 50 mg/mL SDV 1mL 25 MG IVP ×2 (10:10→19:10)
--- NOTE | 2023-06-28 10:38 | PC.SOCIAL ---
IMM update Imm updated with patient at bedside. Copy of page 2 provided. Patient verbalized understanding. Copy in chart initialedm, dated and timed.
[2023-06-28] MEDS: vancomycin 1,000 MG in sodium chloride 0.9% 250 ML 250 MG IV (10:49)
--- NOTE | 2023-06-28 11:42 | PM.PN ---
Subjective Subjective: Patient is still febrile No leukocytosis Shortness of breath requiring 5 L of oxygen since admission Febrile events noted CT scan chest abdomen pelvis reviewed with the radiologist there is no signs of typical empyema Concern for abdominal aortic stent infection however patient is not able to lay flat for WBC scan stress test was not able to be completed as well No active chest pain Patient is stating that he does not want to go to any other hospital FOBT negative MRSA nares negative Blood cultures negative to date A-fib without RVR heart rate in 80s patient has converted to sinus rhythm Vitals/I&O/Wt Last Vital Signs Temp 101.5 F H 06/28/23 08:00 Pulse 87 06/28/23 08:00 Resp 31 H 06/28/23 08:00 BP 96/48 06/28/23 08:00 Pulse Ox 92 06/28/23 07:55 O2 Del Method Nasal Cannula 06/28/23 07:55 O2 Flow Rate 5 06/28/23 07:40 FiO2 40 06/26/23 23:53 06/27/23 06/28/23 06/28/23 22:59 06:59 14:59 Intake Total 979.482 / 1999.482 150 / 2149.482 1098.518 / 1098.518 Output Total 200 / 1000 250 / 1250 Balance 779.482 / 999.482 -100 / 698.810 5961.518 / 1098.518 Weight last 48 hrs Weight 83.28 kg Weight 80.286 kg Physical Exam Narrative: Signs of fluid overload Bilateral breath sounds with rhonchi and crackles Currently on 5 L A-fib converted to sinus rhythm Hemodynamically stable Fatigued and lethargic S1, S2 Nonfocal neuro exam Septic exam Fatigue and lethargy No skin mottling Cap refill less than 3 seconds Urinary Catheter Management: Lobato: Cath Placed During This Visit: yes Reason for Continuing Indwelling Catheter: Other Urinary Catheter Date of Insertion: 06/25/23 Urinary Catheter Time of Insertion: 15:30 Data 06/28/23 02:55 06/28/23 02:55 Micro: Microbiology 06/27/23 11:18 Blood Culture - Preliminary Blood NEGATIVE TO DATE 06/27/23 09:13 Blood Culture - Preliminary Blood NEGATIVE TO DATE A&P Assessment and plan (1) Anemia: (2) Acute kidney injury: (3) Atrial fibrillation: (4) Multifocal pneumonia: (5) Pulmonary edema: (6) Acute respiratory failure with hypoxia: (7) Metabolic acidosis: (8) Hyponatremia: Plan Sepsis related to pneumonia Hospital-acquired pneumonia from recent hospitalization at [facility] qSOFA score 2 Source is pneumonia Requested PCP antigen, COVID-negative, MRSA nares negative, sputum cultures pending Not a candidate of septic bolus because of CHF exacerbation Sepsis criteria met with fever, tachycardia, tachypnea Endorgan damage with worsening of creatinine Currently on broad-spectrum antibiotic No signs of empyema, concern for aortic graft infection however as per Dr. Kruse it is hard to identify on CT scan patient not able to lay flat for WBC scan Patient does not want to go to [facility] or any other hospital A-fib without RVR converted to sinus rhythm Continue amiodarone Hold Cardizem High D-dimer likely related to sepsis and infection Calcitonin trending down, no worsening leukocytosis Acute diastolic CHF exacerbation Start diuresis again, Lasix was put on hold for low blood pressure MARILYN with metabolic acidosis Added bicarb Creatinine worsens Start diuresis Contrast-induced nephropathy? Chronic anemia: FOBT negative, hemoglobin stable Full code Cardiac diet Continue PT Patient is adamant that he does not want to go to SNF/rehab however it might be needed considering his worsening of fatigue and lethargy and deconditioning DVT prophylaxis covered with therapeutic Lovenox which I am renally dosing at this point Attestations Medical Necessity Statement*: Continue medical management Diagnoses Anemia D64.9 Acute kidney injury N17.9 Atrial fibrillation I48.91 Multifocal pneumonia J18.9 Pulmonary edema J81.1 Acute respiratory failure with hypoxia J96.01 Metabolic acidosis E87.20 Hyponatremia E87.1
[2023-06-28 11:51] LABS: Add Urine Culture? No; Amorphous Sediment Urine 2+ /hpf; Bilirubin Urine Neg (Negative); Blood Urine 3+ (Negative); Glucose Urine UA Norm (Normal); Ketones Urine Negative (Negative); Leukocyte Esterase Urine Negative (Negative); Nitrate Urine Negative (Negative); Protein Urine 1+ (Negative); RBC Urine 0-4 /hpf (0-2); Squamous Epithelial Cell Urine 0-4 /hpf (0-5); Urine Appearance Hazy (CLEAR); Urine Color Yellow (Yellow); Urobilinogen Urine Norm (Negative); WBC Urine 0-4 /hpf (0-5); pH Urine 5 (5-7)
[2023-06-28] MEDS: amiodarone 200 mg Tablet 400 MG PO (13:45)
[2023-06-28] MEDS: cefepime 2,000 MG in sodium chloride 0.9% (plus) 50 ML 100 MG IV (13:46)
[2023-06-28] MEDS: predniSONE 20 mg Tablet 40 MG PO (13:46)
[2023-06-28] MEDS: linezolid premix 600 MG/300 ML PREMIX 300 MG IV (14:22)
--- NOTE | 2023-06-28 18:15 | P.TS_ITS ---
Transfer Summary Providers Date of Admission: 06/25/23 05:30 Date of Discharge/Transfer: 06/28/23 Attending Provider at Admission: Saqib Ingram MD Attending Provider at Transfer: Julita Villanueva MD Transfer Plans: Anticipated date of transfer: 06/28/23 . Diagnoses at Discharge Discharge Diagnosis (1) Anemia: Status: Acute (2) Acute kidney injury: Status: Acute (3) Atrial fibrillation: Status: Acute (4) Multifocal pneumonia: Status: Acute (5) Pulmonary edema: Status: Acute (6) Acute respiratory failure with hypoxia: Status: Acute (7) Metabolic acidosis: Status: Acute (8) Hyponatremia: Status: Acute Reason for Visit Reason for Visit SOB Hospital Course Hospital Course 72-year-old male who presented to the hospital for worsening of shortness of breath, he was recently discharged from [facility] after management of sepsis, pneumonia, AAA repair with a stent patient was discharged from the ICU to home, shortness of breath got worse overnight and presented to the hospital with sepsis related to persistent pneumonia, A-fib RVR, heart failure exacerbation, he was put on broad-spectrum antibiotics vancomycin, Zosyn and doxycycline initially which was transitioned to linezolid, Zosyn and cefepime secondary to persistent fevers, CTA chest did not show PE, he was diuresed aggressively which worsened his creatinine, for A-fib RVR he was given amiodarone which converted his rhythm to normal sinus, CT abdomen pelvis was done which showed tiny foci of air around the aortic stent, at this point we have concerns related to infected stent, patient has not responded very well to current antibiotics for hospital- acquired pneumonia, creatinine is at 2.4, fever 101 today, normal white count, blood cultures, urine culture, nares MRSA negative Case was presented to Dr. Blair who has accepted the patient at [facility] patient will be transferred to ICU, he may benefit from bronchoscopy for his persistent pneumonia. At the time of discharge blood pressure 112/51 mmHg, pulse 79 normal sinus rhythm, temperature 100.3, patient is requiring 5 L of oxygen, please note from [facility] Physical Exam Narrative: Signs of fluid overload Bilateral breath sounds with rhonchi and crackles Currently on 5 L A-fib converted to sinus rhythm Hemodynamically stable Fatigued and lethargic S1, S2 Nonfocal neuro exam Septic exam Fatigue and lethargy, no encephalopathy No skin mottling Cap refill less than 3 seconds Urinary Catheter Management: [place]: Cath Placed During This Visit: yes Reason for Continuing Indwelling Catheter: Other Urinary Catheter Date of Insertion: 06/25/23 Urinary Catheter Time of Insertion: 15:30 TS Data Studies Completed and Pending Pending at discharge Category Date Time Status Sestamibi Stress Test Request Routine Exams 06/25/23 12:38 Ordered Aspergillus AG,EIA,Serum Routine Lab 06/28/23 02:55 Received Basic Metabolic Panel AM [facility] Lab 06/29/23 04:00 Ordered Blood Culture Stat Lab 06/25/23 05:35 Results Blood Culture Stat Lab 06/27/23 11:18 Results CBC Auto Diff [Complete Blood Count w/Auto] [facility] Lab 06/29/23 04:00 Ordered CMP [Comprehensive Metabolic Panel] AM [facility] Lab 06/29/23 04:00 Ordered CRP [C Reactive Protein] AM [facility] Lab 06/29/23 04:00 Ordered Fungitell Glucan Assay (Blood) Routine Lab 06/28/23 02:55 Received LDH [Lactate Dehydrogenase] AM [facility] Lab 06/29/23 04:00 Ordered Pneumocystis PCP [Pneumocystis jiroveci Qual PCR] Lab 06/28/23 11:47 Ordered Routine Procalcitonin AM [facility]S Lab 06/29/23 04:00 Ordered Sputum Culture and Gram Stain AM LABS Lab 06/26/23 04:00 Uncollected Vancomycin Trough Timed Lab 06/29/23 09:00 Ordered Labs from last 24 hours 06/28/23 06/28/23 06/28/23 11:15 02:55 02:55 WBC RBC Hgb Hct MCV MCH MCHC RDW Plt Count MPV Neut % (Auto) Lymph % (Auto) [place] % (Auto) Eos % (Auto) Baso % (Auto) Neut # (Auto) Lymph # (Auto) [place] # (Auto) Eos # (Auto) Baso # (Auto) Nucleated RBC % (auto) Nucleated RBCs # Sodium Potassium Chloride Carbon Dioxide Anion Gap BUN Creatinine GFR Calculation Glucose Calculated Osmolality Calcium Total Bilirubin AST ALT Alkaline Phosphatase Total Protein Albumin Globulin Procalcitonin Urine Color Yellow Urine Appearance Hazy A Urine pH 5 Ur Specific Wirt 1.010 Urine Protein 1+ H Urine Glucose (UA) Norm Urine Ketones Negative Urine Blood 3+ H Urine Nitrate Negative Urine Bilirubin Neg Urine Urobilinogen Norm Ur Leukocyte Esterase Negative Urine RBC 0-4 H Urine WBC 0-4 H Ur Squamous Epith Cells 0-4 H Amorphous Sediment 2+ Urine Bacteria None A. galactomannan Ag EIA Pending A. galactomannan Ag Idx Pending Beta-(1,3)-D-Glucan Pending B-(1,3)-D-Glucan Intrp Pending 06/28/23 06/28/23 06/28/23 02:55 02:55 02:55 WBC 7.9 RBC 3.12 L Hgb 8.5 L Hct 26.5 L MCV 84.9 MCH 27.2 L MCHC 32.1 RDW 16.5 H Plt Count 214 MPV 9.1 Neut % (Auto) 78.6 Lymph % (Auto) 12.7 [place] % (Auto) 2.7 Eos % (Auto) 4.8 Baso % (Auto) 0.3 Neut # (Auto) 6.19 Lymph # (Auto) 1.0 [place] # (Auto) 0.2 Eos # (Auto) 0.4 Baso # (Auto) 0.0 Nucleated RBC % (auto) 0 Nucleated RBCs # 0.0 Sodium 131 L Potassium 4.1 Chloride 98 Carbon Dioxide 20 L Anion Gap 17.1 BUN 23 Creatinine 2.3 H GFR Calculation Not Reportable Glucose 181 H Calculated Osmolality 280 L Calcium 6.5 L Total Bilirubin 0.8 AST 20 ALT 15 Alkaline Phosphatase 78 Total Protein 5.2 L Albumin 2.6 L Globulin 2.6 Procalcitonin 0.55 H Urine Color Urine Appearance Urine pH Ur Specific Wirt Urine Protein Urine Glucose (UA) Urine Ketones Urine Blood Urine Nitrate Urine Bilirubin Urine Urobilinogen Ur Leukocyte Esterase Urine RBC Urine WBC Ur Squamous Epith Cells Amorphous Sediment Urine Bacteria A. galactomannan Ag EIA A. galactomannan Ag Idx Beta-(1,3)-D-Glucan B-(1,3)-D-Glucan Intrp Completed Studies During Hospitalization Category Date Time Status CT abdomen pelvis wo con [id number] Routine Cat Scan 06/27/23 11:12 Completed CTA PE [CT angio chest PE protcl [id number]] Routine Cat Scan 06/26/23 10:35 Completed XR chest 1V portable [id number] Stat Exams 06/25/23 03:52 [place] [id number] Routine Ultrasound 06/26/23 08:40 Completed Laboratory Last Values WBC 7.9 10^3/uL (4.0-10.0) 06/28/23 02:55 RBC 3.12 10^6/uL (4.1-5.3) L 06/28/23 02:55 Hgb 8.5 g/dL (11.7-16.6) L 06/28/23 02:55 Hct 26.5 % (42.0-52.0) L 06/28/23 02:55 MCV 84.9 fl (80-94) 06/28/23 02:55 MCH 27.2 pg (28.0-34.0) L 06/28/23 02:55 MCHC 32.1 g/dL (30.0-36.0) 06/28/23 02:55 RDW 16.5 % (12.1-15.1) H 06/28/23 02:55 Plt Count 214 10^3/cmm (130-400) 06/28/23 02:55 MPV 9.1 fL (7.4-10.4) 06/28/23 02:55 Neut % (Auto) 78.6 % 06/28/23 02:55 Lymph % (Auto) 12.7 % 06/28/23 02:55 [place] % (Auto) 2.7 % 06/28/23 02:55 Eos % (Auto) 4.8 % 06/28/23 02:55 Baso % (Auto) 0.3 % 06/28/23 02:55 Neut # (Auto) 6.19 10^3/uL (1.8-7.7) 06/28/23 02:55 Lymph # (Auto) 1.0 10^3/uL (0.8-4.8) 06/28/23 02:55 [place] # (Auto) 0.2 10^3/uL (0.2-0.9) 06/28/23 02:55 Eos # (Auto) 0.4 10^3/uL (0.0-0.8) 06/28/23 02:55 Baso # (Auto) 0.0 10^3/uL (0.0-0.1) 06/28/23 02:55 Nucleated RBC % (auto) 0 % 06/28/23 02:55 Nucleated RBCs # 0.0 /100WBC 06/28/23 02:55 PT 19.30 SECONDS (12.1-14.9) H 06/25/23 03:35 INR 1.57 (0.8-1.2) H 06/25/23 03:35 APTT 33.6 SECONDS (23.9-36.7) 06/25/23 03:35 D-Dimer 6.13 ug/mIFEU (0-0.59) H 06/26/23 02:03 Specimen Type Arterial 06/25/23 04:28 Sample Site Radial, left 06/25/23 04:28 ABG pH 7.51 (7.35-7.45) H 06/25/23 04:28 ABG pCO2 26.4 mmHg (35-45) L 06/25/23 04:28 ABG pO2 73.3 mmHg (80.0-100.0) L 06/25/23 04:28 ABG HCO3 21.3 mmol/L (22-26) L 06/25/23 04:28 ABG Base Excess -1.3 mmol/L (-2.0-2.0) 06/25/23 04:28 Hi Test Pos 06/25/23 04:28 Hematocrit 22.6 % (42-52) L 06/25/23 04:28 O2 Delivery Device Nc 06/25/23 04:28 O2 Liters/Min 4.0 % 06/25/23 04:28 FiO2 40.0 % 06/25/23 04:28 Lumber Tripper ID [email or web address] 06/25/23 04:28 Sodium 131 mmol/L (136-145) L 06/28/23 02:55 Potassium 4.1 mmol/L (3.5-5.1) 06/28/23 02:55 Chloride 98 mmol/L (98-107) 06/28/23 02:55 Carbon Dioxide 20 mmol/L (22-29) L 06/28/23 02:55 Anion Gap 17.1 (5-19) 06/28/23 02:55 BUN 23 mg/dL (8-23) 06/28/23 02:55 Creatinine 2.3 mg/dL (0.7-1.2) H 06/28/23 02:55 GFR Calculation Not Reportable 06/28/23 02:55 Glucose 181 mg/dL (65-115) H 06/28/23 02:55 Calculated Osmolality 280 mOsm/kg (285-295) L 06/28/23 02:55 Lactic Acid 1.1 mmol/L (0.5-2.2) 06/25/23 04:56 Calcium 6.5 mg/dL (8.5-10.5) L 06/28/23 02:55 Phosphorus 3.1 mg/dL (2.5-4.5) 06/26/23 02:03 Magnesium 1.2 mg/dL (1.7-2.3) L 06/26/23 02:03 Total Bilirubin 0.8 mg/dL (0.15-1.2) 06/28/23 02:55 AST 20 U/L (0-40) 06/28/23 02:55 ALT 15 U/L (0-41) 06/28/23 02:55 Alkaline Phosphatase 78 U/L (40-130) 06/28/23 02:55 Troponin T Baseline 23 ng/L (0-15) H 06/25/23 03:35 Troponin T 120 Minute 26.59 ng/L (0-15) H 06/25/23 05:35 Delta Troponin T 3.59 ABS# (0-10) 06/25/23 05:35 Troponin T Hi Sens 6Hr 26.64 ng/L (0-15) H 06/25/23 09:43 Troponin T Hi Sens 6Hr Delta 3.64 ng/L (0-12) 06/25/23 09:43 NT-Pro-B Natriuret Pep 4122 pg/mL (0-125) H 06/25/23 03:35 Total Protein 5.2 g/dL (6.6-8.7) L 06/28/23 02:55 Albumin 2.6 g/dL (3.5-5.2) L 06/28/23 02:55 Globulin 2.6 g/dL (1.3-4.6) 06/28/23 02:55 Procalcitonin 0.55 ng/mL (0-0.5) H 06/28/23 02:55 TSH 2.57 uIU/mL (0.27-4.20) 06/26/23 02:03 Urine Color Yellow (Yellow) 06/28/23 11:15 Urine Appearance Hazy (CLEAR) A 06/28/23 11:15 Urine pH 5 (5-7) 06/28/23 11:15 Ur Specific Wirt 1.010 (1.005-1.030) 06/28/23 11:15 Urine Protein 1+ (Negative) H 06/28/23 11:15 Urine Glucose (UA) Norm (Normal) 06/28/23 11:15 Urine Ketones Negative (Negative) 06/28/23 11:15 Urine Blood 3+ (Negative) H 06/28/23 11:15 Urine Nitrate Negative (Negative) 06/28/23 11:15 Urine Bilirubin Neg (Negative) 06/28/23 11:15 Urine Urobilinogen Norm mg/dL (Negative) 06/28/23 11:15 Ur Leukocyte Esterase Negative (Negative) 06/28/23 11:15 Urine RBC 0-4 /hpf (0-2) H 06/28/23 11:15 Urine WBC 0-4 /hpf (0-5) H 06/28/23 11:15 Ur Squamous Epith Cells 0-4 /hpf (0-5) H 06/28/23 11:15 Amorphous Sediment 2+ /hpf 06/28/23 11:15 Urine Bacteria None /hpf (NONE) 06/28/23 11:15 Nasal Influ A H1 2008 PCR Not detected (NOT DETECT) 06/25/23 06:01 Adenovirus (PCR) Not detected (NOT DETECT) 06/25/23 06:01 C. pneumoniae DNA (PCR) Not detected (NOT DETECT) 06/25/23 06:01 Coronavirus 229E (PCR) Not detected (NOT DETECT) 06/25/23 06:01 Human Metapneumovir PCR Not detected (NOT DETECT) 06/25/23 06:01 Influenza A (H1) PCR Not detected (NOT DETECT) 06/25/23 06:01 Influenza A (H3) PCR Not detected (NOT DETECT) 06/25/23 06:01 Influenza Type A (PCR) Not detected (NOT DETECT) 06/25/23 06:01 Influenza Type B (PCR) Not detected (NOT DETECT) 06/25/23 06:01 M. pneumoniae (PCR) Not detected (NOT DETECT) 06/25/23 06:01 Parainfluenza 1 (PCR) Not detected (NOT DETECT) 06/25/23 06:01 Parainfluenza 2 (PCR) Not detected (NOT DETECT) 06/25/23 06:01 Parainfluenza 3 (PCR) Not detected (NOT DETECT) 06/25/23 06:01 Parainfluenza 4 (PCR) Not detected (NOT DETECT) 06/25/23 06:01 RSV Type A (PCR) Not detected (NOT DETECT) 06/25/23 06:01 RSV Type B (PCR) Not detected (NOT DETECT) 06/25/23 06:01 Entero/Rhino (PCR) Not detected (NOT DETECT) 06/25/23 06:01 SARS-CoV-2 (PCR) Not detected (NOT DETECT) 06/25/23 06:01 Radiology Impressions Chest X-Ray 06/25/23 03:52 IMPRESSION: Increased multifocal airspace opacities which may represent worsening pneumonia. Chest CTA 06/26/23 10:35 IMPRESSION: 1. No pulmonary embolism. Opacification of the pulmonary arteries becomes limited beyond the segmental branches in the lower lung mcginnis. 2. Significant progression of consolidation throughout multiple lobes since the prior study consistent with pneumonia. Consider ARDS. 3. Increasing mediastinal and hilar lymphoid tissue. Probably reactive based upon the acute lung disease. 4. No RIGHT heart strain. 5. Small RIGHT pleural effusion. Abdomen/Pelvis CT 06/27/23 11:12 IMPRESSION: 1. Small right pleural effusion, decreased compared with 06/26/2023 CT chest 2. Right basilar ground-glass opacities consistent with pneumonia. 3. Findings of recent aortic stent graft repair without evidence of active leakage or extravasation. 4. A few tiny bubbles of air within the excluded portion of the aortic aneurysm. It is uncertain whether this is postoperative or indicates early infection. Clinical correlation follow-up suggested. Recent Clincial Data Last Vital Signs Temp 100.3 F H 06/28/23 15:20 Pulse 79 06/28/23 15:20 Resp 30 H 06/28/23 15:20 BP 112/51 06/28/23 15:20 Pulse Ox 94 06/28/23 15:20 O2 Del Method Nasal Cannula 06/28/23 15:20 O2 Flow Rate 5 06/28/23 15:20 FiO2 40 06/26/23 23:53 Vital Signs Temp Pulse Resp BP Pulse Ox O2 Del Method O2 Flow Rate 06/28/23 15:20 100.3 F H 79 30 H 112/51 94 Nasal Cannula 5 06/28/23 14:00 79 06/28/23 14:10 80 26 H 111/54 91 Nasal Cannula 5 06/28/23 08:00 101.5 F H 87 31 H 96/48 06/28/23 07:55 101.5 F H 87 31 H 96/48 92 Nasal Cannula 06/28/23 07:50 84 06/28/23 07:40 84 16 97 High Flow Nasal Cannula 5 Intake & Output/Weight 06/26/23 06/27/23 06/28/23 06/29/23 06:59 06:59 06:59 06:59 Intake Total 1533.833 / 1533.833 830 / 830 2149.482 / 2149.482 1701.972 / 1701.972 Output Total 1945 / 1945 3315 / 3315 1250 / 1250 400 / 400 Balance -411.167 / -411.167 -2485 / -2485 899.482 / 918.660 7167.972 / 1301.972 Weight 86.239 kg 80.286 kg 83.28 kg Vitals Last Vital Signs Temp 100.3 F H 06/28/23 15:20 Pulse 79 06/28/23 15:20 Resp 30 H 06/28/23 15:20 BP 112/51 06/28/23 15:20 Pulse Ox 94 06/28/23 15:20 O2 Del Method Nasal Cannula 06/28/23 15:20 O2 Flow Rate 5 06/28/23 15:20 FiO2 40 06/26/23 23:53 TS Medications Medications Acetaminophen (Acetaminophen 325 Mg Tablet) 650 mg PO Q6H PRN PRN Reason: Mild/Mod Pain Or Temp >/= 101 Last Admin: 06/27/23 13:00 Dose: 650 mg Amiodarone HCl (Amiodarone 200 Mg Tablet) 400 mg PO DAILY DENITA Last Admin: 06/28/23 13:45 Dose: 400 mg Budesonide (Budesonide 0.5 Mg/2 Ml Neb) 0.5 mg INHALATION BID.RESPIRATORY DENITA Last Admin: 06/28/23 07:44 Dose: 0.5 mg Diphenhydramine HCl (Diphenhydramine 50 Mg/Ml Sdv 1ml) 25 mg IVP Q4H PRN PRN Reason: ITCHING Last Admin: 06/28/23 10:10 Dose: 25 mg Enoxaparin Sodium (Enoxaparin 80 Mg/0.8 Ml Syringe) 80 mg 1 mg/kg (90 mg) SUBCUT Q24H [facility] Last Admin: 06/28/23 13:20 Dose: Not Given Piperacillin Sod/Tazobactam (Sod 3.375 gm/ Sodium Chloride) 50 mls @ 12.5 mls/hr IV Q8H [facility]; Protocol Last Admin: 06/28/23 15:40 Dose: 12.5 mls/hr Cefepime HCl 2,000 mg/ Sodium (Chloride) 50 mls @ 100 mls/hr IV Q12H [facility]; Protocol Last Infusion: 06/28/23 14:37 Dose: Infused Linezolid (Zyvox Premix) 600 mg in 300 mls @ 300 mls/hr IV Q12H [facility]; Protocol Last Infusion: 06/28/23 15:38 Dose: Infused Levalbuterol HCl (Levalbuterol 1.25 Mg/3 Ml Neb) 1.25 mg INHALATION Q4H.RESPIRATORY PRN PRN Reason: SHORTNESS OF BREATH Last Admin: 06/28/23 07:44 Dose: 1.25 mg Magnesium Oxide (Magnesium Oxide 400 Mg Tablet) 400 mg PO BID [facility] Last Admin: 06/28/23 17:40 Dose: 400 mg Ondansetron HCl (Ondansetron 2 Mg/Ml Sdv 2 Ml) 4 mg IVP Q8H PRN PRN Reason: vomiting, or N/V if npo Ondansetron HCl (Ondansetron 4 Mg Tablet) 4 mg PO Q8H PRN PRN Reason: NAUSEA Potassium Chloride (Potassium Chloride Oral Liq 20 Meq/15 Ml Udc) 40 meq PO DAILY [facility] Last Admin: 06/28/23 09:37 Dose: 40 meq Potassium Chloride (Potassium Chloride Oral Liq 20 Meq/15 Ml Udc) 20 meq PO BID [facility] Last Admin: 06/28/23 17:40 Dose: 20 meq Prednisone (Prednisone 20 Mg Tablet) 40 mg PO DAILY [facility] Last Admin: 06/28/23 13:46 Dose: 40 mg Senna (Sennosides 8.6 Mg Tablet) 17.2 mg PO BEDTIME [facility] Last Admin: 06/27/23 20:10 Dose: Not Given Sodium Bicarbonate (Sodium Bicarbonate 650 Mg Tablet) 650 mg PO TID [facility] Last Admin: 06/28/23 15:40 Dose: 650 mg Discontinued Medications Amiodarone HCl (Amiodarone 50 Mg/Ml Sdv 3 Ml) 150 mg IVP ONCE ONE Stop: 06/27/23 09:31 Last Admin: 06/27/23 09:47 Dose: 150 mg Apixaban (Apixaban 5 Mg Tablet) 5 mg PO BID@0900,2100 [facility] Last Admin: 06/25/23 20:58 Dose: 5 mg Digoxin (Digoxin 250 Mcg/Ml Inj 2 Ml) 250 mcg IVP NOW ONE Stop: 06/27/23 11:13 Last Admin: 06/27/23 11:34 Dose: 250 mcg Diltiazem HCl (Diltiazem 5 Mg/Ml Sdv 5 Ml) 15 mg IVP ONCE ONE Stop: 06/25/23 03:52 Last Admin: 06/25/23 03:56 Dose: 15 mg Diltiazem HCl (Diltiazem 30 Mg Tablet) 30 mg PO Q6H [facility] Last Admin: 06/28/23 05:58 Dose: 30 mg Doxycycline Monohydrate (Doxycycline 100 Mg Tablet) 100 mg PO BID [facility]; Protocol Last Admin: 06/28/23 09:04 Dose: 100 mg Enoxaparin Sodium (Enoxaparin 100 Mg/Ml Syringe) 90 mg 1 mg/kg (90 mg) SUBCUT Q12H [facility] Last Admin: 06/27/23 09:27 Dose: 90 mg Enoxaparin Sodium (Enoxaparin 80 Mg/0.8 Ml Syringe) 80 mg 1 mg/kg (90 mg) SUBCUT Q12H [facility] Last Admin: 06/28/23 09:04 Dose: 80 mg Furosemide (Furosemide 10 Mg/Ml Sdv 10ml) 60 mg IVP ONCE ONE Stop: 06/25/23 04:44 Last Admin: 06/25/23 05:16 Dose: 60 mg Furosemide (Furosemide 10 Mg/Ml Sdv 2ml) 20 mg IVP ONCE ONE Stop: 06/25/23 18:32 Last Admin: 06/25/23 18:51 Dose: 20 mg Furosemide (Furosemide 10 Mg/Ml Sdv 10ml) 60 mg IVP Q12H [facility] Last Admin: 06/27/23 07:33 Dose: 60 mg Furosemide (Furosemide 10 Mg/Ml Sdv 10ml) 60 mg IVP Q24H [facility] Furosemide (Furosemide 10 Mg/Ml Sdv 4ml) 40 mg IVP Q24H [facility] Diltiazem HCl 100 mg/ Sodium (Chloride) 100 mls @ 0 mls/hr IV .Q0M [facility]; Protocol Last Titration: 06/25/23 18:10 Dose: Infused Piperacillin Sod/Tazobactam (Sod 4.5 gm/ Sodium Chloride) 50 mls @ 100 mls/hr IV ONCE ONE; Protocol Stop: 06/25/23 05:06 Last Infusion: 06/25/23 06:16 Dose: Infused Vancomycin/PEG/NADA/Lysine/Water (Vancocin) 1,250 mg in 250 mls @ 250 mls/hr IV ONCE ONE; Protocol Stop: 06/25/23 05:42 Last Infusion: 06/25/23 08:15 Dose: Infused Doxycycline Hyclate 100 mg/ (Sodium Chloride) 100 mls @ 100 mls/hr IV Q12H [facility]; Protocol Last Infusion: 06/26/23 07:42 Dose: Infused Piperacillin Sod/Tazobactam (Sod 3.375 gm/ Sodium Chloride) 50 mls @ 0 mls/hr [id number] [facility]; Protocol Last Admin: 06/26/23 00:03 Dose: Not Given Vancomycin HCl 1,000 mg/ (Sodium Chloride) 250 mls @ 250 mls/hr IV Q18H [facility] Last Infusion: 06/25/23 23:07 Dose: Infused Magnesium Sulfate (Magnesium Sulfate Premix) 2 gm in 50 mls @ 50 mls/hr IV ONCE ONE Stop: 06/26/23 06:24 Last Infusion: 06/26/23 06:40 Dose: Infused Sodium Chloride (Sodium Chloride 0.9%) 500 mls @ 100 mls/hr IV ONCE ONE Stop: 06/27/23 10:07 Last Infusion: 06/27/23 12:04 Dose: Infused Vancomycin HCl 1,000 mg/ (Sodium Chloride) 250 mls @ 250 mls/hr IV Q24H [facility]; Protocol Last Infusion: 06/28/23 12:49 Dose: Infused Amiodarone HCl 900 mg/Dextrose/ IV Miscellaneous Supplies 518 mls @ 0 mls/hr IV .Q0M [facility]; Protocol Last Titration: 06/28/23 11:48 Dose: 0 mg/min, 0 mls/hr Sodium Chloride (Sodium Chloride 0.9%) 500 mls @ 999 mls/hr IV .Q31M ONE Stop: 06/28/23 09:46 Last Infusion: 06/28/23 10:23 Dose: Infused Doxycycline Hyclate 100 mg/ (Sodium Chloride) 100 mls @ 100 mls/hr IV Q12H [facility]; Protocol Iohexol (Iohexol 350 Mg/Ml 500 Ml Btl (Per Ml)) 0 ml IV ONCE ONE Stop: 06/26/23 12:07 Last Admin: 06/26/23 12:06 Dose: 80 ml Potassium Chloride (Potassium Chloride Er 20 Meq Tablet) 40 meq PO DAILY [facility] Last Admin: 06/26/23 10:14 Dose: Not Given Allergies No Known Allergies Allergy (Verified 06/11/23 11:49) Home Medications albuterol sulfate 90 mcg/actuation aerosol inhaler (ProAir HFA) 1 inh inhalation QID PRN Shortness Of Breath 06/25/23 [History Confirmed 06/25/23] amlodipine 10 mg tablet 10 mg PO DAILY 06/25/23 [History Confirmed 06/25/23] apixaban 5 mg tablet (Eliquis) 5 mg PO BID 06/25/23 [History Confirmed 06/25/23] aspirin 81 mg tablet,delayed release 81 mg PO DAILY 06/25/23 [History Confirmed 06/25/23] atorvastatin 20 mg tablet 20 mg PO BEDTIME 06/25/23 [History Confirmed 06/25/23] metoprolol tartrate 25 mg tablet 25 mg PO BID 06/25/23 [History Confirmed 06/25/23] Discharge Plan Discharge Patient Disposition: Xfer Other Condition: Stable Prescriptions: No Action atorvastatin 20 mg Tablet 20 mg PO BEDTIME Aspir-81 81 mg Tablet,Delayed Release (Dr/Ec) 81 mg PO DAILY amlodipine 10 mg Tablet 10 mg PO DAILY ProAir HFA 90 mcg/actuation Hfa Aerosol Inhaler 1 inh INHALATION QID PRN (Reason: Shortness Of Breath) metoprolol tartrate 25 mg Tablet 25 mg PO BID Eliquis 5 mg Tablet 5 mg PO BID Discharge Orders: Transfer Out of Facility (Order); Ordered 06/28/23 Ordered By: Julita Villanueva Transfer Attestations Time Spent in Transfer Care: greater than 30 min Quality Metrics Clinical Quality Measures [ No reported AMI, CVA or VTE this stay] Coding Level of Care Code Acute Code for Chg Fwd Diagnoses Anemia D64.9 Acute kidney injury N17.9 Atrial fibrillation I48.91 Multifocal pneumonia J18.9 Pulmonary edema J81.1 Acute respiratory failure with hypoxia J96.01 Metabolic acidosis E87.20 Hyponatremia E87.1
--- NOTE | 2023-06-28 19:23 | PC.NURSE ---
Soco from [facility] transfer center called and said that Alfred would be going to [facility] room 4427, ICU. Call report to [phone]. Report is called to Laura Bishop RN at [facility], [place], [place]. [facility] is called for transport. Records are copied, Certification and consent to transfer is signed and filled out, and Medical necessity certification statement for transfer is filled out.
--- NOTE | 2023-06-28 19:58 | PC.NURSE ---
Yogesh Thompson arrived to transfer patient to [facility]. Patient able to transfer to stretcher with minimal contact assist. Denies pain or needs at transfer. Son at bedside.
[2023-07-02 17:10] LABS: Fungitell 1-3-B Glucan Assay <31 pg/mL; Interpretation NEGATIVE
[2023-07-03 15:35] LABS: Aspergillus AG,EIA,Serum NOT DETECTED; Aspergillus Galactomannan Inde <0.50
== END 2023-06-28 20:02 | disposition short-term general hospital (02) | DRG 193 ==
LOC: ER 04:47 → CSU 05:31
PROVIDERS: Admitting Provider Internal Medicine; Emergency Provider Emergency Medicine; Visit Provider Internal Medicine
DX: J18.9 Pneumonia, unspecified organism (principal); I50.33 Acute on chronic diastolic (congestive) heart failure; J96.01 Acute respiratory failure with hypoxia; G93.40 Encephalopathy, unspecified; N17.9 Acute kidney failure, unspecified; E87.20 Acidosis, unspecified; E87.1 Hypo-osmolality and hyponatremia; I48.91 Unspecified atrial fibrillation; Z79.51 Long term (current) use of inhaled steroids; Z79.82 Long term (current) use of aspirin; I71.43 Infrarenal abdominal aortic aneurysm, without rupture; Z98.890 Other specified postprocedural states; F17.200 Nicotine dependence, unspecified, uncomplicated
CPT/HCPCS: 36415; 36600; 51798; 71045; 71275; 74176; 80048; 80053; 81001; 82274; 82803; 83605; 83735; 83880; 84100; 84145; 84443; 84484; 85025; 85378; 85610; 85730; 86403; 87040; 87305; 87449; 87486; 87581; 87633; 87641; 93005; 93970; 94640; 94660; 96365; 96367; 96372; 96374; 96375; 96376; 97161; 97530; 99291; J0282; J0692; J1160; J1200; J1650; J1940; J2020; J2543; J3370; J3475; J3490; J7040; J7050; J7060; J7512; J7614; J7626; Q9967